=== PATIENT | male | born 1945 | race Caucasian/White ===

== ENCOUNTER 2016-08-29 18:26 | Emergency (ER) | payer OTHER ==
[~2016-08-29] VITALS: Ht 175.3 cm; Wt 62.6 kg
[~2016-08-29 18:26] MED LIST: ASPCH81 PO; BROM0.07 OPR; CALCTAB7 PO; GLUCTAB7 PO; LISI-791 PO; MAGN400T6 PO; MULT-506 PO; PRED1SUS3 OPR; TEMA15CA4 PO
[2016-08-29 18:32] VITALS: TEMP 36.7; Ht 175.3 cm; Wt 62.6 kg
[2016-08-29] MEDS ORDERED: SODIUM CHLORIDE 0.9% 1000ML 1,000 ML IV STA (19:33)
[2016-08-29] MEDS ORDERED: ONDANSETRON INJ 2 MG/ML 2 ML VIAL IV STA (19:33)
[2016-08-29] MEDS ORDERED: DOXY100C2 PO (19:53)
[2016-08-29] MEDS ORDERED: TERI600S SQ (19:53)
[2016-08-29] MEDS ORDERED: ASPI81TA28 PO (19:53)
--- NOTE | 2016-08-29 19:54 | DIAGNOSTIC IMAGING REPORT ---
CHEST ONE VIEW PORTABLE CLINICAL HISTORY: ABDOMINAL PAIN/GI pain COMPARISON STUDY: 12/22/2015 FINDINGS: Mild gastric distention. Chronic elevation left hemidiaphragm. Lungs are considered clear. Stable postoperative changes to the left shoulder. IMPRESSION: Mild gastric distention. Chronic change. No acute process of the chest. Electronically signed by: Judson Almeida M.D. 08/29/2016 7:52 PM Dictated Date/Time: 08/29/2016 7:52 PM
[2016-08-29 19:55] LABS: BASO % 0.2 %; BASO ABS # 0.01 K/uL (0-0.2); COMPLETE YES; EOS % 0.9 %; IG% 0.3 %; LYMPH % 6.5 %; LYMPH ABS # 0.42 K/uL (1.2-3.4); MEAN CELL VOLUME 91.6 fL (80-100); MEAN CORPUSCULAR HEMOGLOBIN 32.1 pg (25-34); MEAN PLATELET VOLUME 9.8 fL (7.4-10.4); MONO % 8.4 %; NEUT % 83.7 %; PLATELET COUNT 226 K/uL (130-400); RED BLOOD COUNT 3.93 M/uL (4.7-6.1); WHITE BLOOD COUNT 6.45 K/uL (4.8-10.8)
[2016-08-29 20:10] LABS: PARTIAL THROMBOPLASTIN RATIO 1.2; PROTHROMBIN TIME (PATIENT) 10.8 SECONDS (9.0-12.0)
[2016-08-29 20:11] LABS: ALT/SGPT 27 U/L (12-78); BLOOD UREA NITROGEN 31 mg/dl (7-18); BUN/CREATININE RATIO 31.9 (10-20); CALCIUM 8.3 mg/dl (8.5-10.1); CARBON DIOXIDE 25 mmol/L (21-32); CHLORIDE 97 mmol/L (98-107); CREATININE 0.96 mg/dl (0.60-1.40); GLUCOSE 133 mg/dl (70-99); POTASSIUM 4.1 mmol/L (3.5-5.1); SODIUM 131 mmol/L (136-145)
[2016-08-29 20:14] LABS: ALKALINE PHOSPHATASE 84 U/L (45-117); AST/SGOT 26 U/L (15-37)
--- NOTE | 2016-08-29 21:23 | EMERGENCY ROOM VISIT NOTE ---
History Report prepared by Rolanda: Dunia Love Under the Supervision of: Dr. Petey Gomez D.O. First contact with patient: 19:25 Chief Complaint: DEHYDRATION Stated Complaint: SYMPTOMS OF DEHYDRATION Nursing Triage Summary: pt reports vomitting multiple times today , with decreased po intake since last night, PCp started on abx to tx sinus inf fri reports head pressure, denies vision changes , reports hx of low sodium History of Present Illness The patient is a 71 year old male who presents to the Emergency Room with complaints of constant dehydration symptoms beginning last night. The patient notes that last night he had one episode of diarrhea. Today the patient had an episode of vomiting. The patient is concerned for low sodium levels as he has a history of this. Symptoms of low sodium for the patient include shaking and pressure to his head, both which he is experiencing at this time. He also notes a decrease in his fluid intake since last night. The patient is currently on Doxycycline to treat a sinus infection since Tuesday. Source of History: patient Onset: yesterday Position: other (global) Quality: other (dehydration) Timing: constant Associated Symptoms: + diarrhea, + vomiting Note: Patient is experiencing head pressure and shakes. Review of Systems See HPI for pertinent positives & negatives. A total of 10 systems reviewed and were otherwise negative. Past Medical & Surgical Medical Problems: (1) Bronchitis (2) History of - pneumonia (3) SYNCOPE AND COLLAPSE Family History FH: gallbladder disease Hypertension Social History Smoking Status: Never Smoker Marital Status: Housing Status: lives with family Occupation Status: retired Current/Historical Medications Scheduled Aspirin (Aspirin Ec), 81 MG PO DAILY Calcium Carbonate-Vitamin D W/ (Caltrate 600 Plus), 1 TAB PO QAM Doxycycline Hyclate (Vibramycin), 1 CAP PO BID Hzdqdkzgnvc-Cachgxuvqug-Bpt C- (Glucosamine Chondroitin), 1 TAB PO QAM Lisinopril (Zestril), 10 MG PO QAM Magnesium Oxide (Mag-Ox), 400 MG PO QAM Multivitamin (Multivitamin), 1 TAB PO QAM Ondasetron Odt (Zofran Odt), 4 MG SL Q6H Temazepam (Restoril), 30 MG PO HS PRN Teriparatide (Recombinant) (Forteo), 20 MCG SQ DAILY Allergies Coded Allergies: Zolpidem (Verified Adverse Reaction, Unknown, DELIRIUM, 08/29/16) Physical Exam Vital Signs Date Time Temp Pulse Resp B/P Pulse Ox O2 Delivery O2 Flow Rate FiO2 08/29/16 20:19 77 18 131/78 93 Room Air 08/29/16 18:32 36.7 108 18 168/86 95 Room Air Physical Exam CONSTITUTIONAL/VITAL SIGNS: Reviewed / noted above. GENERAL: Non-toxic in appearance. INTEGUMENTARY: Warm, dry, and [place]. HEAD: Normocephalic. EYES: without scleral icterus or trauma. ENT/OROPHARYNX: clear and moist. LYMPHADENOPATHY/NECK: Is supple without lymphadenopathy or meningismus. RESPIRATORY: Lungs clear and equal. CARDIOVASCULAR: Regular rate and rhythm. GI/ABDOMEN: Soft and nontender. No organomegaly or pulsatile mass. No rebound or guarding. Normal bowel sounds. EXTREMITIES: Warm and well perfused. BACK: No CVA tenderness. NEUROLOGICAL: Intact without focal deficits. PSYCHIATRIC: normal affect. MUSCULOSKELETAL: Normally developed with good muscle tone. Medical Decision & Procedures ER Provider Diagnostic Interpretation: X ray results and stated below per my interpretation and radiology interpretation. CHEST ONE VIEW PORTABLE CLINICAL HISTORY: ABDOMINAL PAIN/GI pain COMPARISON STUDY: 12/22/2015 FINDINGS: Mild gastric distention. Chronic elevation left hemidiaphragm. Lungs are considered clear. Stable postoperative changes to the left shoulder. IMPRESSION: Mild gastric distention. Chronic change. No acute process of the chest. Electronically signed by: Judson Almeida M.D. 08/29/2016 7:52 PM Dictated Date/Time: 08/29/2016 7:52 PM Laboratory Results 08/29/16 19:47 Red Blood Count 3.93, Mean Corpuscular Volume 91.6, Mean Corpuscular Hemoglobin 32.1, Mean Corpuscular Hemoglobin Concent 35.0, Mean Platelet Volume 9.8, Neutrophils (%) (Auto) 83.7, Lymphocytes (%) (Auto) 6.5, Monocytes (%) (Auto) 8.4, Eosinophils (%) (Auto) 0.9, Basophils (%) (Auto) 0.2, Neutrophils # (Auto) 5.40, Lymphocytes # (Auto) 0.42, Monocytes # (Auto) 0.54, Eosinophils # (Auto) 0.06, Basophils # (Auto) 0.01 08/29/16 19:47 Test 08/29/16 19:47 White Blood Count 6.45 K/uL (4.8-10.8) Red Blood Count 3.93 M/uL (4.7-6.1) Hemoglobin 12.6 g/dL (14.0-18.0) Hematocrit 36.0 % (42-52) Mean Corpuscular Volume 91.6 fL (80-100) Mean Corpuscular Hemoglobin 32.1 pg (25-34) Mean Corpuscular Hemoglobin Concent 35.0 g/dl (32-36) Platelet Count 226 K/uL (130-400) Mean Platelet Volume 9.8 fL (7.4-10.4) Neutrophils (%) (Auto) 83.7 % Lymphocytes (%) (Auto) 6.5 % Monocytes (%) (Auto) 8.4 % Eosinophils (%) (Auto) 0.9 % Basophils (%) (Auto) 0.2 % Neutrophils # (Auto) 5.40 K/uL (1.4-6.5) Lymphocytes # (Auto) 0.42 K/uL (1.2-3.4) Monocytes # (Auto) 0.54 K/uL (0.11-0.59) Eosinophils # (Auto) 0.06 K/uL (0-0.5) Basophils # (Auto) 0.01 K/uL (0-0.2) RDW Standard Deviation 42.3 fL (36.4-46.3) RDW Coefficient of Variation 12.4 % (11.5-14.5) Immature Granulocyte % (Auto) 0.3 % Immature Granulocyte # (Auto) 0.02 K/uL (0.00-0.02) Prothrombin Time 10.8 SECONDS (9.0-12.0) Prothromb Time International Ratio 1.0 (0.9-1.1) Activated Partial Thromboplast Time 30.4 SECONDS (21.0-31.0) Partial Thromboplastin Ratio 1.2 Anion Gap 9.0 mmol/L (3-11) Est Creatinine Clear Calc Drug Dose 61.6 ml/min Estimated GFR () 91.2 Estimated GFR (Non- 78.7 BUN/Creatinine Ratio 31.9 (10-20) Calcium Level 8.3 mg/dl (8.5-10.1) Total Bilirubin 0.4 mg/dl (0.2-1) Direct Bilirubin < 0.1 mg/dl (0-0.2) Aspartate Amino Transf (AST/SGOT) 26 U/L (15-37) Alanine Aminotransferase (ALT/SGPT) 27 U/L (12-78) Alkaline Phosphatase 84 U/L (45-117) Total Protein 7.2 gm/dl (6.4-8.2) Albumin 3.3 gm/dl (3.4-5.0) Lipase 135 U/L (73-393) Laboratory results as stated above per my review. Medications Administered Medications (Trade) Dose Ordered Sig/Juana Route Start Time Stop Time Status Last Admin Dose Admin Sodium Chloride (Nss 1000ml) 1,000 ml @ 999 mls/hr Q1H1M STAT IV 08/29/16 19:33 08/29/16 20:33 DC 08/29/16 19:51 999 MLS/HR Ondansetron HCl (Zofran Inj) 4 mg NOW STAT IV 08/29/16 19:33 08/29/16 19:34 DC 08/29/16 19:51 4 MG ED Course 1931: Previous medical records were reviewed. The patient was evaluated in room C3. A complete history and physical examination was performed. 1932: Zofran Inj 4 mg IV, Sodium Chloride 1,000 ml @ 999 mls/hr IV. 2123: On reevaluation, the patient is hemodynamically stable. I discussed the results and findings with the patient. He verbalized agreement of the treatment plan. He was discharged home. Medical Decision Differential includes acute coronary syndrome, myocardial infarction, CVA, TIA, anemia, infection, pneumonia, UTI, pyelonephritis, poor nutrition, dehydration, electrolyte disturbance,hypoglycemia. This is a 71-year-old male who presents to the ED with a chief complaint of dehydration. The patient is concerned about sodium being low. The patient states he had one episode of diarrhea yesterday and one episode of vomiting today. He has also had some nausea. He states that he started [employer] on Tuesday for sinus infection. The patient's vital signs here are stable. His heart rate was 108. His physical exam was unremarkable. Abdomen is soft and nontender. Lungs are clear. CBC is normal. Chest x-ray did not show acute disease. The patient's chemistry panel was unremarkable. The BUN is 31. Lipase is negative. The patient was told the results of the test. He was treated with a liter of normal saline IV and some IV Zofran. He is felt to be stable for discharge and outpatient follow-up. Impression Primary Impression: Dehydration Additional Impression: Vomiting and diarrhea Scribe Attestation The scribe's documentation has been prepared under my direction and personally reviewed by me in its entirety. I confirm that the note above accurately reflects all work, treatment, procedures, and medical decision making performed by me. Departure Information Dispostion Home / Self-Care Prescriptions Ondasetron Odt (ZOFRAN ODT) 4 Mg Tab 4 MG SL Q6H for Nausea, #15 TAB Prov: Petey Gomez D.O. 08/29/16 Referrals Nadir Murillo D.O.Int.Med. (PCP) Forms HOME CARE DOCUMENTATION FORM, IMPORTANT VISIT INFORMATION, WORK / SCHOOL INSTRUCTIONS Patient Instructions Dehydration, My [facility] Additional Instructions Follow-up with your doctor for further care and evaluation in 1-2 days. Return to the emergency department for worsening or new symptoms or any concerns. You have been examined and treated today on an emergency basis only. This is not a substitute for, or an effort to provide, complete comprehensive medical care. It is impossible to recognize and treat all injuries or illnesses in a single emergency department visit. It is therefore important that you follow up closely with your doctor. Call as soon as possible for an appointment. Drink more fluids. Problem Qualifiers
[2016-08-29] MEDS ORDERED: ONDA4TAB10 SL (21:26)
[2016-08-29 21:33] VITALS: BP 111/71; PULSE 78; O2SAT 92
== END 2016-08-29 21:35 | disposition home or self-care (01) ==
LOC: C.EDB 18:27 → C.EDC 21:35
DX: E86.0 Dehydration (principal); R11.10 Vomiting, unspecified; R19.7 Diarrhea, unspecified; Z87.01 Personal history of pneumonia (recurrent); Z83.79 Family history of other diseases of the digestive system; Z82.49 Family history of ischemic heart disease and other diseases of the circulatory system; Z79.82 Long term (current) use of aspirin; Z79.899 Other long term (current) drug therapy

== ENCOUNTER → 2016-09-07 | Outpatient (CLI) | payer OTHER ==
[~2016-09-07] MED LIST changes: -ASPCH81 PO; +ASPI81TA28 PO; -BROM0.07 OPR; +DOXY100C2 PO; +ONDA4TAB10 SL; -PRED1SUS3 OPR; +TERI600S SQ
[2016-09-07 14:43] LABS: BASO % 0.7 %; BASO ABS # 0.04 K/uL (0-0.2); COMPLETE YES; EOS % 5.7 %; HEMATOCRIT 36.1 % (42-52); IG% 0.3 %; LYMPH % 32.2 %; LYMPH ABS # 1.98 K/uL (1.2-3.4); MEAN CELL VOLUME 91.6 fL (80-100); MEAN CORPUSCULAR HEMOGLOBIN 31.7 pg (25-34); MEAN CORPUSCULAR HGB CONC 34.6 g/dl (32-36); MEAN PLATELET VOLUME 9.9 fL (7.4-10.4); MONO % 14.3 %; NEUT % 46.8 %; PLATELET COUNT 295 K/uL (130-400); RED BLOOD COUNT 3.94 M/uL (4.7-6.1); WHITE BLOOD COUNT 6.15 K/uL (4.8-10.8)
[2016-09-07 14:48] LABS: ALT/SGPT 32 U/L (12-78); BLOOD UREA NITROGEN 41 mg/dl (7-18); BUN/CREATININE RATIO 43.1 (10-20); CALCIUM 9.2 mg/dl (8.5-10.1); CARBON DIOXIDE 29 mmol/L (21-32); CHLORIDE 98 mmol/L (98-107); CREATININE 0.94 mg/dl (0.60-1.40); GLUCOSE 104 mg/dl (70-99); POTASSIUM 4.3 mmol/L (3.5-5.1); SODIUM 135 mmol/L (136-145)
[2016-09-07 14:53] LABS: ALKALINE PHOSPHATASE 82 U/L (45-117); AST/SGOT 30 U/L (15-37); PHOSPHORUS 3.3 mg/dl (2.5-4.9); PROSTATE SPECIFIC ANTIGEN < 0.010 ng/ml (0.000-4.000)
== END | disposition home or self-care (01) ==
LOC: C.LAB1850 13:19
PROVIDERS: ATTEND Internal Medicine Nephrology
DX: Z52.008 Unspecified donor, other blood (principal); E87.1 Hypo-osmolality and hyponatremia; Z79.899 Other long term (current) drug therapy; C61 Malignant neoplasm of prostate

== ENCOUNTER → 2016-11-30 | Outpatient (CLI) | payer OTHER ==
--- NOTE | 2016-11-30 09:03 | DIAGNOSTIC IMAGING REPORT ---
ULTRASOUND ABDOMINAL WALL CLINICAL HISTORY: Abdominal wall nodule/swelling. COMPARISON STUDY: Abdominal CT dated 08/06/2006. FINDINGS: Real-time, grayscale, and color flow sonography of the ventral abdominal wall is performed at the indicated site of interest in the left abdominal wall. There is a 1.5 x 0.8 x 2.0 cm well-circumscribed slightly hyperechoic structure at the indicated site of interest. No internal flow was shown on color imaging. This may present focal fat within the rectus abdominis musculature or less likely a tiny lipoma. IMPRESSION: There is a tiny hyperechoic focus at the site of interest as detailed above, possibly representing focal fat within the rectus abdominis muscle or less likely tiny lipoma. This is of low suspicion and clinical follow-up will be required. Electronically signed by: Joe Quispe M.D. 11/30/2016 9:02 AM Dictated Date/Time: 11/30/2016 8:59 AM
== END | disposition home or self-care (01) ==
LOC: C.ULTR 08:28
PROVIDERS: ATTEND Family Medicine
DX: R19.06 Epigastric swelling, mass or lump (principal)

== ENCOUNTER → 2017-01-13 | Outpatient (CLI) | payer OTHER ==
[2017-01-13 10:15] LABS: BLOOD UREA NITROGEN 30 mg/dl (7-18); BUN/CREATININE RATIO 32.5 (10-20); CALCIUM 9.3 mg/dl (8.5-10.1); CARBON DIOXIDE 29 mmol/L (21-32); CHLORIDE 98 mmol/L (98-107); CREATININE 0.93 mg/dl (0.60-1.40); GLUCOSE 99 mg/dl (70-99); MAGNESIUM 1.9 mg/dl (1.8-2.4); POTASSIUM 4.3 mmol/L (3.5-5.1); SODIUM 133 mmol/L (136-145)
[2017-01-13 10:20] LABS: CHOLESTEROL 159 mg/dl (0-200); CHOLESTEROL/HDL RATIO 2.4; HDL CHOLESTEROL 67 mg/dl; LDL CHOLESTEROL CALCULATED 80 mg/dl; PHOSPHORUS 3.2 mg/dl (2.5-4.9); TRIGLYCERIDES 62 mg/dl (0-150); VERY LOW DENSITY LIPOPROT CALC 12 mg/dl
== END | disposition home or self-care (01) ==
LOC: C.LAB1850 08:50
PROVIDERS: ATTEND Internal Medicine Nephrology
DX: M81.0 Age-related osteoporosis without current pathological fracture (principal); E55.9 Vitamin D deficiency, unspecified; E87.1 Hypo-osmolality and hyponatremia; E78.5 Hyperlipidemia, unspecified

== ENCOUNTER → 2017-05-17 | Outpatient (CLI) | payer OTHER ==
[~2017-05-17] MED LIST changes: -ONDA4TAB10 SL
== END | disposition home or self-care (01) ==
LOC: C.LAB1850 09:08
PROVIDERS: ATTEND Internal Medicine Rheumatology
DX: M81.0 Age-related osteoporosis without current pathological fracture (principal); E55.9 Vitamin D deficiency, unspecified

== ENCOUNTER → 2017-07-13 | Outpatient (CLI) | payer OTHER ==
[2017-07-13 12:41] LABS: ALBUMIN 3.6 gm/dl (3.4-5.0); BLOOD UREA NITROGEN 35 mg/dl (7-18); CARBON DIOXIDE 31 mmol/L (21-32); CREATININE 0.96 mg/dl (0.60-1.40); GLUCOSE 82 mg/dl (70-99); PHOSPHORUS 3.1 mg/dl (2.5-4.9); POTASSIUM 4.2 mmol/L (3.5-5.1); SODIUM 131 mmol/L (136-145)
== END | disposition home or self-care (01) ==
LOC: C.LAB1850 10:45
PROVIDERS: ATTEND Internal Medicine Nephrology
DX: I10 Essential (primary) hypertension (principal)

== ENCOUNTER 2017-08-06 07:51 | Inpatient (IN) | payer OTHER ==
[~2017-08-06] VITALS: Ht 172.7 cm; Wt 64.5 kg
[~2017-08-06 07:51] MED LIST changes: +DOXY100C76 PO
[2017-08-06] MEDS ORDERED: SODIUM CHLORIDE 0.9% 1000ML 1,000 ML IV STA (08:15)
[2017-08-06] MEDS ORDERED: BENZ100C84 PO (08:21)
[2017-08-06] MEDS ORDERED: AMOX875T PO (08:21)
[2017-08-06 08:49] LABS: HEMOGLOBIN 12.7 g/dL (14.0-18.0); MEAN CELL VOLUME 89.3 fL (80-100); MEAN CORPUSCULAR HEMOGLOBIN 32.4 pg (25-34); MEAN CORPUSCULAR HGB CONC 36.3 g/dl (32-36); MEAN PLATELET VOLUME 9.8 fL (7.4-10.4); PLATELET COUNT 166 K/uL (130-400); RED CELL DISTRIBUTION WIDTH SD 39.1 fL (36.4-46.3); WHITE BLOOD COUNT 6.65 K/uL (4.8-10.8)
[2017-08-06 09:05] LABS: CREATININE 0.92 mg/dl (0.60-1.40)
[2017-08-06 09:10] LABS: BASO % 0.2 %; BASO ABS # 0.01 K/uL (0-0.2); IG# 0.03 K/uL (0.00-0.02); LYMPH % 10.2 %; LYMPH ABS # 0.68 K/uL (1.2-3.4); MONO % 9.8 %; MONO ABS # 0.65 K/uL (0.11-0.59); NEUT % 79.3 %; NEUT ABS # 5.28 K/uL (1.4-6.5)
[2017-08-06 09:45] LABS: INFLUENZA B ANTIGEN POS for Influ B (NEG)
--- NOTE | 2017-08-06 10:14 | EMERGENCY ROOM VISIT NOTE ---
History Report prepared by Glynnibantonia: Esther Brady Under the Supervision of: Dr. Petey Gomez D.O. First contact with patient: 08:03 Chief Complaint: DEHYDRATION Stated Complaint: DEHYDRATION Nursing Triage Summary: pt states he has a sinus infection and hasnt been drinking enough, pressure in head with shaking, this has happened before and he has had low sodium. pt states he was seen here yesturday and should have been given fluids denies diarreah or vomiting History of Present Illness The patient is a 72 year old male who presents to the Emergency Room with complaints of a persistent flu like symptoms for the past 4 days. He is accompanied by his . He states "I feel like I'm dehydrated and have low sodium". He complains of "pressure" in his head with "shaking" and reports he has experienced similar symptoms before. The patient was seen here in the ED yesterday for a sinus infection and placed on medications. He complains of a cough but denies any chest pain or difficulty breathing. He states his temperature was 100.2 last night. He had a sore throat a few days ago, but reports it has resolved. His states one of the patients employees is positive for the flu. The patient denies any vomiting or diarrhea. Source of History: patient, spouse/significant other () Onset: 4 days [employer] Position: other (global) Timing: other (persistent) Associated Symptoms: + fevers, + cough, No sorethroat, No chest pain, No SOB , No vomiting, No diarrhea Review of Systems See HPI for pertinent positives & negatives. A total of 10 systems reviewed and were otherwise negative. Past Medical & Surgical Medical Problems: (1) Bronchitis (2) History of - pneumonia (3) SYNCOPE AND COLLAPSE Family History FH: gallbladder disease Hypertension Social History Smoking Status: Never Smoker Alcohol Use: none Drug Use: none Marital Status: Housing Status: lives with family Occupation Status: retired Current/Historical Medications Scheduled Amoxicillin & Pot Clavulanate (Augmentin 875-125 mg), 1 TAB PO BID Aspirin (Aspirin Ec), 81 MG PO DAILY Calcium Carbonate-Vitamin D W/ (Caltrate 600 Plus), 1 TAB PO QAM Doxycycline Monohydrate (Monodox), 100 MG PO BID Cpfkdknjxah-Jxgngmcjnlf-Cug C- (Glucosamine Chondroitin), 1 TAB PO QAM Lisinopril (Zestril), 10 MG PO QAM Magnesium Oxide (Mag-Ox), 400 MG PO QAM Multivitamin (Multivitamin), 1 TAB PO QAM Temazepam (Restoril), 30 MG PO HS PRN Teriparatide (Recombinant) (Forteo), 20 MCG SQ DAILY Scheduled PRN Benzonatate (Tessalon Perles), 1 CAP PO TID PRN for Cough Allergies Coded Allergies: Zolpidem (Verified Adverse Reaction, Unknown, DELIRIUM, 08/06/17) Physical Exam Vital Signs Date Time Temp Pulse Resp B/P (MAP) Pulse Ox O2 Delivery O2 Flow Rate FiO2 08/06/17 09:12 78 20 145/90 96 Room Air 08/06/17 07:58 36.4 68 18 142/80 97 Room Air Physical Exam CONSTITUTIONAL/VITAL SIGNS: Reviewed / noted above. GENERAL: Non-toxic in appearance. INTEGUMENTARY: Warm, dry, and [place]. HEAD: Normocephalic. EYES: without scleral icterus or trauma. ENT/OROPHARYNX: clear and moist. LYMPHADENOPATHY/NECK: Is supple without lymphadenopathy or meningismus. RESPIRATORY: Lungs clear and equal. CARDIOVASCULAR: Regular rate and rhythm. GI/ABDOMEN: Soft and nontender. No organomegaly or pulsatile mass. No rebound or guarding. Normal bowel sounds. EXTREMITIES: Warm and well perfused. BACK: No CVA tenderness. NEUROLOGICAL: Intact without focal deficits. PSYCHIATRIC: normal affect. MUSCULOSKELETAL: Normally developed with good muscle tone. Medical Decision & Procedures Laboratory Results 08/06/17 08:35 Red Blood Count 3.92, Mean Corpuscular Volume 89.3, Mean Corpuscular Hemoglobin 32.4, Mean Corpuscular Hemoglobin Concent 36.3, Mean Platelet Volume 9.8, Neutrophils (%) (Auto) 79.3, Lymphocytes (%) (Auto) 10.2, Monocytes (%) (Auto) 9.8, Eosinophils (%) (Auto) 0.0, Basophils (%) (Auto) 0.2, Neutrophils # (Auto) 5.28, Lymphocytes # (Auto) 0.68, Monocytes # (Auto) 0.65, Eosinophils # (Auto) 0.00, Basophils # (Auto) 0.01 Test 08/06/17 08:35 08/06/17 09:00 08/06/17 10:02 White Blood Count 6.65 K/uL (4.8-10.8) Red Blood Count 3.92 M/uL (4.7-6.1) Hemoglobin 12.7 g/dL (14.0-18.0) Hematocrit 35.0 % (42-52) Mean Corpuscular Volume 89.3 fL (80-100) Mean Corpuscular Hemoglobin 32.4 pg (25-34) Mean Corpuscular Hemoglobin Concent 36.3 g/dl (32-36) Platelet Count 166 K/uL (130-400) Mean Platelet Volume 9.8 fL (7.4-10.4) Neutrophils (%) (Auto) 79.3 % Lymphocytes (%) (Auto) 10.2 % Monocytes (%) (Auto) 9.8 % Eosinophils (%) (Auto) 0.0 % Basophils (%) (Auto) 0.2 % Neutrophils # (Auto) 5.28 K/uL (1.4-6.5) Lymphocytes # (Auto) 0.68 K/uL (1.2-3.4) Monocytes # (Auto) 0.65 K/uL (0.11-0.59) Eosinophils # (Auto) 0.00 K/uL (0-0.5) Basophils # (Auto) 0.01 K/uL (0-0.2) RDW Standard Deviation 39.1 fL (36.4-46.3) RDW Coefficient of Variation 12.0 % (11.5-14.5) Immature Granulocyte % (Auto) 0.5 % Immature Granulocyte # (Auto) 0.03 K/uL (0.00-0.02) Est Creatinine Clear Calc Drug Dose 65.2 ml/min Influenza Type A Antigen Neg for Influ A (NEG) Influenza Type B Antigen POS for Influ B (NEG) Laboratory results as stated above per my review. Medications Administered Medications (Trade) Dose Ordered Sig/Juana Route Start Time Stop Time Status Last Admin Dose Admin Sodium Chloride 1,000 ml @ 500 mls/hr Q2H STAT IV 08/06/17 08:15 08/06/17 10:14 08/06/17 08:45 500 MLS/HR ED Course 0815: NSS 1000 ml @ 500 mls/hr IV. 0853: Previous medical records were reviewed. The patient was evaluated in room A3. A complete history and physical examination was performed. 0945: Nursing informed me the patient is positive for influenza B. 0950: I reevaluated the patient. He is resting comfortably. I discussed his results and my recommendation he remain in the hospital for further evaluation and management and he verbalized complete understanding and agreement. 1001: I discussed the patients case with Dr. Salcido [facility] Hospitalist. The patient will be further evaluated. Medical Decision Differential includes acute coronary syndrome, myocardial infarction, CVA, TIA, anemia, infection, pneumonia, UTI, pyelonephritis, poor nutrition, dehydration, electrolyte disturbance,hypoglycemia. This is a 72-year-old male who presents to the ED with a chief complaint of decreased oral intake, a sensation of dehydration and low sodium. The patient also reported cough, sore throat for a few days this past week. He had a fever of 100.2 yesterday. He was seen in the emergency department yesterday and felt to have a sinus infection. He was started on doxycycline last night. The patient reports feeling shaky. His physical exam reveals some generalized weakness. His vital signs are stable. He does appear somewhat shaky. CBC is unremarkable, sodium is 121, chloride is 87, BUN is 20 and flu swab was positive for influenza B. The patient was hydrated with IV fluids, 1 L normal saline. He states that he has had symptoms for at least 4 days with regards to his flulike symptoms. He was not started on Tamiflu. Because of the patient's hyponatremia, positive influenza B, unsteadiness and weakness and shakiness, he will be seen by the hospitalist for further inpatient evaluation and care. Medication Reconcilliation Current Medication List: was personally reviewed by me Blood Pressure Screening Patient's blood pressure: Elevated blood pressure The patients elevated blood pressure will be further managed by the inpatient hospital medicine team. Consults Time Called: 09 Consulting Physician: Dr. Salcido [facility] Hospitalist Returned Call: 1001 I discussed the patients case with Dr. Salcido [facility] Hospitalist. The patient will be further evaluated. Impression Primary Impression: Hyponatremia Additional Impressions: Influenza B Weakness Unsteadiness Shakiness Scribe Attestation The scribe's documentation has been prepared under my direction and personally reviewed by me in its entirety. I confirm that the note above accurately reflects all work, treatment, procedures, and medical decision making performed by me. Departure Information Dispostion Being Evaluated By Hospitalist Referrals Massimo Caraballo M.D. (PCP) Patient Instructions My [facility] Problem Qualifiers
[2017-08-06 10:17] VITALS: O2SAT 96; Ht 172.7 cm; Wt 64.5 kg
[2017-08-06] MEDS ORDERED: ALUMINUM/MAGNESIUM/SIMETH (MAALOX MAX) 30 ML UDC PO PRN (10:45)
[2017-08-06] MEDS ORDERED: MAGNESIUM HYDROXIDE SUSP 30 ML UDC PO PRN (10:45)
[2017-08-06] MEDS ORDERED: SODIUM CHLORIDE 1 GM TAB PO ONE (10:45)
[2017-08-06] MEDS ORDERED: POLYETHYLENE (MIRALAX) 17 GM PACK PO PRN (10:45)
--- NOTE | 2017-08-06 10:53 | History and Physical ---
History & Physical Date & Time of Service: Aug 06, 2017 at 10:41 Chief Complaint: Dehydration Primary Care Physician: Massimo Caraballo M.D. History of Present Illness Source: patient, family, clinic records, hospital records Patient is a pleasant 72 y/o male, with PMHx of HTN, chronic hyponatremia, osteoporosis, and insomnia, who presented to the ED because of weakness, fatigue , and decreased appetite since 08/02. Patient was seen in the ED last PM, CXR negative for acute findings, no blood work done. He was discharged home with Doxycycline 100 mg BID for sinusitis (did not start yet). Patient notes he has yellow/green sinus drainage and a h/o sinusitis. He returned to the ED today because of continued symptoms and "foggy sensation of head." He states fogginess of head is similar to past hyponatremia episodes. In ED, his sodium was 121. He admits he has eaten/drank very little since Tuesday. He admits to decreased UO. He follows w/ Dr. Enciso for chronic hyponatremia- baseline Na 130- 133, follows a 64 oz daily fluid restriction. Notes a cough, but no sputum production. +chills. Patient denies any fever, sweats, lightheadedness, dizziness, vision changes, CP, palpitations, edema, SOB, wheezing, abdominal pain, nausea, vomiting, diarrhea, melena, numbness/tingling, muscle/joint pain, anxiety/depression, active bleeding, or new skin discoloration/changes. Past Medical/Surgical History HTN osteoporosis Insomnia chronic hyponatremia Family History FH: gallbladder disease Hypertension Social History Smoking Status: Never Smoker Alcohol Use: none Drug Use: none Marital Status: Housing status: lives with significant other Occupational Status: retired Immunizations History of Influenza Vaccine: Unknown History of Tetanus Vaccine?: Unknown History of Pneumococcal: Unknown History of Hepatitis B Vaccine: Unknown Multi-Drug Resistant Organisms History of MDRO: No Allergies Coded Allergies: Zolpidem (Verified Adverse Reaction, Unknown, DELIRIUM, 08/06/17) Home Medications Scheduled Amoxicillin & Pot Clavulanate (Augmentin 875-125 mg), 1 TAB PO BID Aspirin (Aspirin Ec), 81 MG PO DAILY Calcium Carbonate-Vitamin D W/ (Caltrate 600 Plus), 1 TAB PO QAM Doxycycline Monohydrate (Monodox), 100 MG PO BID Dcneukptiwg-Pkgvargsgvr-Xad C- (Glucosamine Chondroitin), 1 TAB PO QAM Lisinopril (Zestril), 10 MG PO QAM Magnesium Oxide (Mag-Ox), 400 MG PO QAM Multivitamin (Multivitamin), 1 TAB PO QAM Temazepam (Restoril), 30 MG PO HS PRN Teriparatide (Recombinant) (Forteo), 20 MCG SQ DAILY Scheduled PRN Benzonatate (Tessalon Perles), 1 CAP PO TID PRN for Cough Physical Exam Vital Signs Date Time Temp Pulse Resp B/P (MAP) Pulse Ox O2 Delivery O2 Flow Rate FiO2 08/06/17 10:17 96 Room Air 08/06/17 09:12 78 20 145/90 96 Room Air 08/06/17 07:58 36.4 68 18 142/80 97 Room Air General Appearance: no apparent distress Head: normocephalic, atraumatic Eyes: PERRL ENT: hearing grossly normal Neck: supple Respiratory/Chest: lungs clear, no respiratory distress, no accessory muscle use Cardiovascular: regular rate, rhythm Abdomen/GI: normal bowel sounds, non tender, soft Back: normal inspection Extremities/Musculoskelatal: no calf tenderness, no pedal edema Neurologic/Psych: alert, normal mood/affect, oriented x 3 Skin: normal color, warm/dry, no rash Diagnostics Laboratory Results Results Past 24 Hours Test 08/06/17 08:35 08/06/17 09:00 08/06/17 10:24 Range/Units White Blood Count 6.65 4.8-10.8 K/uL Red Blood Count 3.92 4.7-6.1 M/uL Hemoglobin 12.7 14.0-18.0 g/dL Hematocrit 35.0 42-52 % Mean Corpuscular Volume 89.3 80-100 fL Mean Corpuscular Hemoglobin 32.4 25-34 pg Mean Corpuscular Hemoglobin Concent 36.3 32-36 g/dl Platelet Count 166 130-400 K/uL Mean Platelet Volume 9.8 7.4-10.4 fL Neutrophils (%) (Auto) 79.3 % Lymphocytes (%) (Auto) 10.2 % Monocytes (%) (Auto) 9.8 % Eosinophils (%) (Auto) 0.0 % Basophils (%) (Auto) 0.2 % Neutrophils # (Auto) 5.28 1.4-6.5 K/uL Lymphocytes # (Auto) 0.68 1.2-3.4 K/uL Monocytes # (Auto) 0.65 0.11-0.59 K/uL Eosinophils # (Auto) 0.00 0-0.5 K/uL Basophils # (Auto) 0.01 0-0.2 K/uL RDW Standard Deviation 39.1 36.4-46.3 fL RDW Coefficient of Variation 12.0 11.5-14.5 % Immature Granulocyte % (Auto) 0.5 % Immature Granulocyte # (Auto) 0.03 0.00-0.02 K/uL Sodium Level 121 136-145 mmol/L Potassium Level 4.0 3.5-5.1 mmol/L Chloride Level 87 98-107 mmol/L Carbon Dioxide Level 26 21-32 mmol/L Anion Gap 8.0 3-11 mmol/L Blood Urea Nitrogen 20 7-18 mg/dl Creatinine 0.92 0.60-1.40 mg/dl Est Creatinine Clear Calc Drug Dose 65.2 ml/min Estimated GFR () 95.3 Estimated GFR (Non- 82.2 BUN/Creatinine Ratio 21.9 10-20 Random Glucose 113 70-99 mg/dl Calcium Level 8.0 8.5-10.1 mg/dl Influenza Type A Antigen Neg for Influ A NEG Influenza Type B Antigen POS for Influ B NEG Microbiology Results 08/06/17 Urine Culture, Received Pending Diagnostic Radiology CHEST 2 VIEWS ROUTINE CLINICAL HISTORY: Left lower lobe rales. Productive cough COMPARISON STUDY: 08/29/2016 FINDINGS: There is persistent elevation left hemidiaphragm. The cardiac and mediastinal contours remain stable. There is aortic tortuosity/ectasia. There is no failure. There is no focal pulmonary consolidation. No pleural effusions are visualized.[ IMPRESSION: Chronic elevation of the left hemidiaphragm. No acute findings. Electronically signed by: Mike Cordova M.D. 08/05/2017 8:22 PM Dictated Date/Time: 08/05/2017 8:22 PM The status of this report is Signed. Draft = Not yet reviewed or approved by Radiologist. Signed = Reviewed and approved by Radiologist. Impression Assessment and Plan Patient is a pleasant 72 y/o male, with PMHx of HTN, chronic hyponatremia, osteoporosis, and insomnia, who presented to the ED because of weakness, fatigue , and decreased appetite since 08/02. +Influenza B; - Admit to med/surg - Symptoms since Tuesday- >48 hours, outside of window to start Tamiflu - DuoNebs PRN for SOB/wheezing - Tessalon Perles PRN for cough - Droplet precautions - CXR on 08/05- no acute processes Acute on chronic hyponatremia, likely secondary to decrease PO intake- follows w / Dr. Enciso: - IV 1L bolus in ED, continue IV NSS @ 75 ml/hr - 0.5 g sodium chloride tablet - Follow PRP HTN: Continue Lisinopril Sinusitis: Continue Doxycycline 100 mg BID- 08/06 first day of treatment Osteoporosis: Continue Recombinant SQ inj daily Insomnia: Continue Restoril HS PRN DVT prophylaxis: Heparin SQ BID Code status: LEVEL I, FULL Dispo: From home, lives w/ - no discharge needs anticipated Level of Care Med/Surg Advanced Directives Existing Living Will: Yes Existing Power of Embedder: No Resuscitation Status FULL RESUSCITATION VTE Prophylaxis VTE Risk Assessment Done? Y/N: Yes Risk Level: Moderate Given or contraindicated: Unfractionated heparin SQ, T.E.D. Stockings, SCD's Reviewed: Pt Seen/Exam by Me History Pt was able to eat a bit of lunch. states it is more than he has eaten in days. 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 No chest pain. He feels very weak. Agree with HPI/ROS as noted by PA. General Appearance: WD/WN, no apparent distress Eye Exam: bilateral eye normal inspection, bilateral eye other (normal sclera) Respiratory: normal breath sounds, no respiratory distress Cardiovascular: normal peripheral pulses, regular rate, rhythm Gastrointestinal: non tender, soft Extremities: non-tender, no pedal edema Neurologic/Psychiatric: alert, normal mood/affect, oriented x 3 Skin Characteristics: normal color, warm/dry Assessment/Plan Agree with plan as outlined above Flu +, outside of window for tamiflu HypoNa, likely from nutritional losses Monitor on IVF and 500mg salt tab x1, repeat later today
[2017-08-06 10:54] LABS: CALCIUM 7.6 mg/dl (8.5-10.1); CREATININE 0.72 mg/dl (0.60-1.40); POTASSIUM 3.7 mmol/L (3.5-5.1)
[2017-08-06] MEDS: ACETAMINOPHEN 325 MG TAB PO PRN ×2 (13:02→17:49)
[2017-08-06] MEDS: SODIUM CHLORIDE 0.9% 1000ML 1,000 ML IV SCH (13:46)
[2017-08-06 15:15] VITALS: BP 125/74; PULSE 59; TEMP 36.8; O2SAT 95
[2017-08-06] MEDS: ONDANSETRON INJ 2 MG/ML 2 ML VIAL IV PRN (17:50)
[2017-08-06] MEDS ORDERED: NURSING VERBAL MED ORDER ONE (18:45)
[2017-08-06 19:20] LABS: CALCIUM 7.6 mg/dl (8.5-10.1); CREATININE 0.78 mg/dl (0.60-1.40); POTASSIUM 3.9 mmol/L (3.5-5.1)
[2017-08-06] MEDS: TERIPARATIDE 600 MCG/2.4 ML SQ SCH (19:33)
[2017-08-06] MEDS: TEMAZEPAM 15 MG CAP PO SCH (20:19)
[2017-08-06] MEDS: HEPARIN SOD 5000 UNIT/0.5 ML CARP SQ SCH (20:20)
[2017-08-06] MEDS: DOXYCYCLINE HYCLATE 100 MG CAP PO SCH (20:24)
[2017-08-06 23:40] VITALS: BP 93/59; PULSE 58; TEMP 36.8; O2SAT 91
[2017-08-07] MEDS: BENZONATATE 100MG CAP PO PRN ×4 (00:15→20:29)
[2017-08-07] MEDS: SODIUM CHLORIDE 0.9% 1000ML 1,000 ML IV SCH ×2 (00:20→13:55)
[2017-08-07] MEDS: ACETAMINOPHEN 325 MG TAB PO PRN ×2 (07:34→23:28)
[2017-08-07 08:19] LABS: HEMATOCRIT 33.9 % (42-52); HEMOGLOBIN 12.1 g/dL (14.0-18.0); MEAN CELL VOLUME 89.9 fL (80-100); MEAN CORPUSCULAR HEMOGLOBIN 32.1 pg (25-34); MEAN CORPUSCULAR HGB CONC 35.7 g/dl (32-36); MEAN PLATELET VOLUME 9.7 fL (7.4-10.4); PLATELET COUNT 161 K/uL (130-400); RED CELL DISTRIBUTION WIDTH CV 12.3 % (11.5-14.5); RED CELL DISTRIBUTION WIDTH SD 39.8 fL (36.4-46.3); WHITE BLOOD COUNT 4.32 K/uL (4.8-10.8)
[2017-08-07 08:22] VITALS: BP 112/56; PULSE 56; TEMP 37; O2SAT 93
[2017-08-07 08:48] LABS: CALCIUM 7.7 mg/dl (8.5-10.1); CREATININE 0.77 mg/dl (0.60-1.40); POTASSIUM 3.9 mmol/L (3.5-5.1)
[2017-08-07] MEDS: DOXYCYCLINE HYCLATE 100 MG CAP PO SCH ×2 (08:58→20:33)
[2017-08-07] MEDS: MAGNESIUM OXIDE 400 MG TAB PO SCH (08:59)
[2017-08-07] MEDS: CALCIUM 600MG + VIT D 400 IU TAB PO SCH (08:59)
[2017-08-07] MEDS: MULTIVITAMIN TAB PO SCH (08:59)
[2017-08-07] MEDS: LISINOPRIL 10 MG TAB PO SCH (08:59)
[2017-08-07] MEDS: ASPIRIN 81 MG ECTAB PO SCH (08:59)
[2017-08-07] MEDS ORDERED: TERIPARATIDE 600 MCG/2.4 ML SQ SCH (09:00)
[2017-08-07] MEDS ORDERED: NON-FORMULARY MEDICATION (Glucosamine-Chondroitin-Vit C- (Glucosamine Chondroitin) 1 TAB) PO SCH (09:00)
[2017-08-07] MEDS: HEPARIN SOD 5000 UNIT/0.5 ML CARP SQ SCH ×2 (09:07→20:32)
--- NOTE | 2017-08-07 09:37 | Hospitalist Progress Note ---
Hospitalist Progress Note Date of Service Aug 07, 2017. (Valerie Fry ., MEGHAN) Subjective Pt evaluation today including: conversation w/ patient, physical exam, lab review, review of inpatient medication list Voiding: no voiding problems Patient resting in bed. Feels significantly improved since admission. Appetite has returned this AM. Tolerated breakfast well. +cough. Continued drainage from sinuses. No more body aches/weakness. Patient denies any fever, chills, sweats, lightheadedness, dizziness, vision changes, CP, palpitations, edema, SOB, wheezing, abdominal pain, nausea, vomiting, diarrhea, urinary symptoms, melena, numbness/tingling, weakness, muscle/joint pain, anxiety/depression, active bleeding, or new skin discoloration/changes. (Valerie Fry ., RODNEYC) Medications Current Inpatient Medications Medications (Trade) Dose Ordered Sig/Juana Route Start Time Stop Time Status Last Admin Dose Admin Acetaminophen (Tylenol Tab) 650 mg Q4H PRN PO 08/06/17 10:45 09/05/17 10:44 08/07/17 07:34 650 MG Al Hydrox/Mg Hydrox/Simethicone (Maalox Max Susp) 15 ml Q4H PRN PO 08/06/17 10:45 09/05/17 10:44 Magnesium Hydroxide (Milk Of Magnesia Susp) 30 ml Q6H PRN PO 08/06/17 10:45 09/05/17 10:44 Polyethylene (Miralax Powder Packet) 17 gm DAILY PRN PO 08/06/17 10:45 09/05/17 10:44 Ondansetron HCl (Zofran Inj) 4 mg Q6H PRN IV 08/06/17 10:45 09/05/17 10:44 08/06/17 17:50 4 MG Heparin Sodium (Porcine) (Heparin Sq 5000 Unit/0.5ml) 5,000 unit Q12H SQ 08/06/17 21:00 09/05/17 20:59 08/07/17 09:07 5,000 UNIT Aspirin (Ecotrin Tab) 81 mg DAILY PO 08/07/17 09:00 09/06/17 08:59 08/07/17 08:59 81 MG Benzonatate (Tessalon Perles Cap) 100 mg TID PRN PO 08/06/17 10:45 09/05/17 10:44 08/07/17 07:25 100 MG Calcium/Vitamin D (Caltrate Plus Tab) 1 tab QAM PO 08/07/17 09:00 09/06/17 08:59 08/07/17 08:59 1 TAB Doxycycline Hyclate (Vibramycin Cap) 100 mg BID PO 08/06/17 21:00 08/16/17 20:59 08/07/17 08:58 100 MG Lisinopril (Zestril Tab) 10 mg QAM PO 08/07/17 09:00 09/06/17 08:59 08/07/17 08:59 10 MG Magnesium Oxide (Mag-Ox Tab) 400 mg QAM PO 08/07/17 09:00 09/06/17 08:59 08/07/17 08:59 400 MG Multivitamins (Multivitamin Tab) 1 tab QAM PO 08/07/17 09:00 09/06/17 08:59 08/07/17 08:59 1 TAB Temazepam (Restoril Cap) 30 mg HS PO 08/06/17 21:00 09/05/17 20:59 08/06/17 20:19 30 MG Sodium Chloride 1,000 ml @ 75 mls/hr [id number] IV 08/06/17 14:00 09/05/17 13:59 08/07/17 00:20 75 MLS/HR Albuterol/ Ipratropium (Duoneb) 3 ml Q4R PRN INH 08/06/17 11:00 09/05/17 10:59 Teriparatide Acetate (Forteo injection) 20 mcg DAILY@2100 SQ 08/06/17 21:00 09/05/17 20:59 08/06/17 19:33 20 MCG (Valerie Fry PA-C) Objective Vital Signs Date Time Temp Pulse Resp B/P (MAP) Pulse Ox O2 Delivery O2 Flow Rate FiO2 08/07/17 08:42 Room Air 08/07/17 08:22 37.0 56 17 112/56 (74) 93 Room Air 08/07/17 00:15 Room Air 08/06/17 23:40 36.8 58 16 93/59 (70) 91 Room Air 08/06/17 16:50 Room Air 08/06/17 15:15 36.8 59 20 125/74 (91) 95 Room Air 08/06/17 12:30 Room Air 08/06/17 11:15 78 20 117/78 94 Room Air 08/06/17 10:17 96 Room Air (Valerie Fry PA-C) Physical Exam General Appearance: WD/WN, no apparent distress Eyes: normal inspection, PERRL ENT: hearing grossly normal Neck: supple Respiratory/Chest: lungs clear, no respiratory distress, no accessory muscle use Cardiovascular: regular rate, rhythm Abdomen: normal bowel sounds, non tender, soft Extremities: no pedal edema, no calf tenderness Neurologic/Psychiatric: alert, normal mood/affect, oriented x 3 Skin: normal color, warm/dry, no rash (Valerie Fry, MEGHAN) Laboratory Results Last 24 Hours Test 08/06/17 10:24 08/06/17 13:13 08/07/17 07:55 Sodium Level 122 mmol/L 122 mmol/L 126 mmol/L Potassium Level 3.7 mmol/L 3.9 mmol/L 3.9 mmol/L Chloride Level 90 mmol/L 90 mmol/L 94 mmol/L Carbon Dioxide Level 23 mmol/L 27 mmol/L 24 mmol/L Anion Gap 9.0 mmol/L 5.0 mmol/L 8.0 mmol/L Blood Urea Nitrogen 18 mg/dl 16 mg/dl 16 mg/dl Creatinine 0.72 mg/dl 0.78 mg/dl 0.77 mg/dl Est Creatinine Clear Calc Drug Dose 83.4 ml/min 76.9 ml/min 77.9 ml/min Estimated GFR () 107.3 103.8 104.3 Estimated GFR (Non- 92.5 89.6 90.0 BUN/Creatinine Ratio 24.4 21.1 21.2 Random Glucose 108 mg/dl 107 mg/dl 82 mg/dl Calcium Level 7.6 mg/dl 7.6 mg/dl 7.7 mg/dl Prothrombin Time 10.8 SECONDS Prothromb Time International Ratio 1.0 White Blood Count 4.32 K/uL Red Blood Count 3.77 M/uL Hemoglobin 12.1 g/dL Hematocrit 33.9 % Mean Corpuscular Volume 89.9 fL Mean Corpuscular Hemoglobin 32.1 pg Mean Corpuscular Hemoglobin Concent 35.7 g/dl RDW Standard Deviation 39.8 fL RDW Coefficient of Variation 12.3 % Platelet Count 161 K/uL Mean Platelet Volume 9.7 fL (Valerie Fry ., PA-C) Assessment and Plan Patient is a pleasant 72 y/o male, with PMHx of HTN, chronic hyponatremia, osteoporosis, and insomnia, who presented to the ED because of weakness, fatigue , and decreased appetite since 08/02. +Influenza B- IMPROVING: - Admit to med/surg - Symptoms since Tuesday- >48 hours, outside of window to start Tamiflu - DuoNebs PRN for SOB/wheezing - Tessalon Perles PRN for cough - Droplet precautions - CXR on 08/05- no acute processes Acute on chronic hyponatremia, likely secondary to decrease PO intake- follows w / Dr. Enciso- IMPROVING: - IV 1L bolus in ED, continue IV NSS @ 75 ml/hr - 0.5 g sodium chloride tablet x1 - Follow PRP- sodium 126 today from 121 yesterday HTN- STABLE: Continue Lisinopril Sinusitis: Doxycycline 100 mg BID- 08/06 first day of treatment Osteoporosis: Continue Recombinant SQ inj daily Insomnia: Continue Restoril HS PRN DVT prophylaxis: Heparin SQ BID Code status: LEVEL I, FULL Dispo: From home, lives w/ - no discharge needs anticipated- likely discharge to home tomorrow (Valerie Fry, PA-C) Attending Note & Attestation - Pt seen/examined, chart reviewed, care plan d/w ROXANN Fry. I agree w/ the marrero components of her documentation except he had mild end-exp wheezing on exam. Pt feels much better. Only complaint is that of sinus drainage and mild cough. Eating well today. Afebrile, VSS gen - nad mouth - MMM neck - no JVD heart - RRR, s1, s2 lungs - end-exp wheezes b/l abd - soft, NT, ND ext - no edema Na 126 this am; repeat Na this afternoon 130 (about baseline for him) A/P: 1. influenza B infection - appears clinically resolved. 2. acute/chronic hyponatremia - acutely the Na is markedly improved. He has had between 3-4 L of fluid since admission. Since Na is now 130 and baseline Na is low 130s will d/c the IVF at this time. Plan for repeat BMP in am. 3. acute sinusitis - doxy BID x 10 days. If Na is stable in AM can d/c home then. Jv Ceballos MD (Jv Ceballos MD)
[2017-08-07 15:10] VITALS: BP 147/80; PULSE 69; TEMP 36.7; O2SAT 94
[2017-08-07] MEDS: GUAIFENESIN 600 MG TABCR PO SCH ×2 (15:22→20:28)
[2017-08-07] MEDS: ONDANSETRON INJ 2 MG/ML 2 ML VIAL IV PRN (17:52)
[2017-08-07] MEDS: TERIPARATIDE 600 MCG/2.4 ML SQ SCH (20:29)
[2017-08-07] MEDS: TEMAZEPAM 15 MG CAP PO SCH (20:35)
[2017-08-07 23:10] VITALS: BP 110/65; PULSE 85; TEMP 38.1; O2SAT 90
[2017-08-08] VITALS (8 sets, daily range): BP systolic 126–151; BP diastolic 67–78; PULSE 58–74; TEMP 36.6–37.6; O2SAT 91–97
[2017-08-08 05:36] LABS: HEMATOCRIT 34.5 % (42-52); HEMOGLOBIN 11.9 g/dL (14.0-18.0); MEAN CORPUSCULAR HEMOGLOBIN 31.7 pg (25-34); MEAN CORPUSCULAR HGB CONC 34.5 g/dl (32-36); MEAN PLATELET VOLUME 9.5 fL (7.4-10.4); PLATELET COUNT 151 K/uL (130-400); RED CELL DISTRIBUTION WIDTH CV 12.4 % (11.5-14.5); RED CELL DISTRIBUTION WIDTH SD 41.9 fL (36.4-46.3); WHITE BLOOD COUNT 5.33 K/uL (4.8-10.8)
[2017-08-08 06:17] LABS: CALCIUM 7.7 mg/dl (8.5-10.1); CREATININE 0.81 mg/dl (0.60-1.40); POTASSIUM 4.2 mmol/L (3.5-5.1)
[2017-08-08] MEDS: CALCIUM 600MG + VIT D 400 IU TAB PO SCH (08:36)
[2017-08-08] MEDS: DOXYCYCLINE HYCLATE 100 MG CAP PO SCH (08:36)
[2017-08-08] MEDS: GUAIFENESIN 600 MG TABCR PO SCH (08:36)
[2017-08-08] MEDS: MULTIVITAMIN TAB PO SCH (08:37)
[2017-08-08] MEDS: MAGNESIUM OXIDE 400 MG TAB PO SCH (08:37)
[2017-08-08] MEDS: BENZONATATE 100MG CAP PO PRN (08:37)
[2017-08-08] MEDS: LISINOPRIL 10 MG TAB PO SCH (08:37)
[2017-08-08] MEDS: ASPIRIN 81 MG ECTAB PO SCH (08:38)
[2017-08-08] MEDS: HEPARIN SOD 5000 UNIT/0.5 ML CARP SQ SCH (08:38)
[2017-08-08] MEDS ORDERED: ALBUT/IPRATROP 3MG/0.5MG NEB 3 ML VIAL INH ONE (12:00)
--- NOTE | 2017-08-08 13:50 | DIAGNOSTIC IMAGING REPORT ---
CHEST 2 VIEWS ROUTINE CLINICAL HISTORY: 72 years-old Male presenting with fever, flu, eval for superimposed pneumonia. TECHNIQUE: PA and lateral views of the chest were obtained. COMPARISON: 08/05/2017. FINDINGS: Cardiomediastinal silhouette normal. Lungs and pleural spaces clear. Elevation of the left hemidiaphragm with left basilar opacity. No other focal infiltrate. No pleural effusion or pneumothorax. Left shoulder arthroplasty. Upper abdomen normal. IMPRESSION: 1. Left basilar atelectasis. No other evidence of acute cardiopulmonary disease. Electronically signed by: Gonsalo Snyder M.D. 08/08/2017 1:48 PM Dictated Date/Time: 08/08/2017 1:45 PM
[2017-08-08 13:51] LABS: OSMOLALITY,URINE 552 mOms/kg (500-800); SODIUM RANDOM URINE 43 mEq/L
[2017-08-08] MEDS: ALBUT/IPRATROP 3MG/0.5MG NEB 3 ML VIAL INH PRN ×2 (14:33→19:27)
[2017-08-08] MEDS ORDERED: DXY100 PO (15:33)
[2017-08-08] MEDS ORDERED: METH4PAK PO (15:42)
--- NOTE | 2017-08-08 15:47 | Discharge Instructions ---
Discharge Instructions Date of Service Aug 08, 2017. Admission Reason for Admission: Hyponatremia, Influenza B Discharge Discharge Diagnosis / Problem: Hyponatremia, influenza B Discharge Goals Goal(s): Decrease discomfort, Improve function, Diagnostic testing, Therapeutic intervention Activity Recommendations Activity Limitations: resume your previous activity . Instructions / Follow-Up Instructions / Follow-Up You were admitted with low sodium (hyponatremia), below your baseline. You were also found to be positive for the flu. To increase your sodium, you were treated with IV fluids and given one salt tab. You are also being treated for acute sinusitis with an antibiotic. Medications: *Please continue doxycycline 100 mg by mouth twice day for 7 more days. This is an antibiotic for your sinusitis that you started a few days ago. *You have been prescribed a Medrol dose pack. Please take as directed. This is a steroid to help with your wheezing. *Stop Augmentin. *Continue your other home medications as prescribed. Follow up: *You will be scheduled to follow up with your primary care provider regarding your hospital stay. Please seek medical attention if you experience fevers, chills, sweats, dizziness/lightheadedness, loss of consciousness, chest pain, shortness of breath, nausea, vomiting, numbness or tingling. Current Hospital Diet Patient's current hospital diet: Regular Diet Discharge Diet Recommended Diet: AHA Diet (Heart Healthy) Fluid Restriction: 2000 ml (8 cups) Pending Studies Studies pending at discharge: no Medical Emergencies . Who to Call and When: Medical Emergencies: If at any time you feel your situation is an emergency, please call 911 immediately. . Non-Emergent Contact Non-Emergency issues call your: Primary Care Provider, Induction Brazer Call Non-Emergent contact if: you have a fever, you have any medication questions . Past History Medical & Surgical History: (1) Hyponatremia (2) Influenza B . "Provider Documentation" section prepared by Brooke Spencer. . VTE Core Measure Inpt VTE Proph given/why not?: Unfractionated heparin SQ, T.E.D. Stockings, SCD 's
--- NOTE | 2017-08-08 15:58 | Discharge Summary ---
Discharge Summary Date of Service Aug 08, 2017. Discharge Summary Admission Date: Aug 06, 2017 at 10:40 Discharge Date: Aug 08, 2017 Discharge Disposition: Home Principal Diagnosis: Hyponatremia, influenza B Problems/Secondary Diagnoses: Sinusitis, HTN, chronic hyponatremia, osteoporosis, insomnia Immunizations: Have You Had Influenza Vaccine: Unknown History of Tetanus Vaccine?: Unknown History of Pneumococcal: Unknown History of Hepatitis B Vaccine: Unknown Procedures: CHEST 2 VIEWS ROUTINE CLINICAL HISTORY: 72 years-old Male presenting with fever, flu, eval for superimposed pneumonia. TECHNIQUE: PA and lateral views of the chest were obtained. COMPARISON: 08/05/2017. FINDINGS: Cardiomediastinal silhouette normal. Lungs and pleural spaces clear. Elevation of the left hemidiaphragm with left basilar opacity. No other focal infiltrate. No pleural effusion or pneumothorax. Left shoulder arthroplasty. Upper abdomen normal. IMPRESSION: 1. Left basilar atelectasis. No other evidence of acute cardiopulmonary disease. Medication Reconciliation New Medications: Methylprednisolone (Medrol Dosepak) 4 Mg Abdifatah 1 PKT PO UD for 6 Days, #1 PKT Doxycycline Hyclate (Doxycycline Hyclate) 100 Mg Cap 100 MG PO BID for 7 Days, #14 CAP Continued Medications: Aspirin (Aspirin Ec) 81 Mg Tab 81 MG PO DAILY Benzonatate (Tessalon Perles) 100 Mg Cap 1 CAP PO TID PRN for Cough for 10 Days, #30 CAP Calcium Carbonate-Vitamin D W/ (Caltrate 600 Plus) 1 Tab Tab 1 TAB PO QAM, TAB Sjrghatmhtu-Vlfilimkxcq-Gaq C- (Glucosamine Chondroitin) 1 Tab Tab 1 TAB PO QAM Lisinopril (Zestril) 10 Mg Tab 10 MG PO QAM, TAB Magnesium Oxide (Mag-Ox) 400 Mg Tab 400 MG PO QAM, 0 Refills Multivitamin (Multivitamin) Tab 1 TAB PO QAM Temazepam (Restoril) 15 Mg Cap 30 MG PO HS PRN Teriparatide (Recombinant) (Forteo) 600 Mcg/2.4 Ml Jocy 20 MCG SQ DAILY Discontinued Medications: Amoxicillin & Pot Clavulanate (Augmentin 875-125 mg) 1 Tab Tab 1 TAB PO BID, #14 TAB Doxycycline Monohydrate (Monodox) 100 Mg Cap 100 MG PO BID for 7 Days, #14 CAP Discharge Exam Patient reports feeling well. He states he was febrile last night but this has resolved. He did report nausea and decreased appetite last night for dinner, but states he ate his breakfast this morning without any issue. He reports a productive cough with yellow sputum. He states his drainage from sinusitis is improving. The patient denies sweats, chest pain, palpitations, claudication, cough, wheezing, shortness of breath, vomiting, abdominal pain, dysuria, hematuria, urinary retention, paralysis, weakness, numbness and tingling. Constitutional: No fever, No chills, No sweats Eyes: No worsening of vision, No eye pain, No diplopia ENT: No hearing loss, No nasal symptoms, No trouble swallowing Respiratory: +Cough. No wheezing, No shortness of breath Cardiovascular: No chest pain, No claudication, No palpitations Abdomen: +Nausea. No pain, No vomiting Musculoskeletal: No joint pain, No muscle pain, No swelling Genitourinary - Male: No dysuria, No urinary retention, No hematuria Neurologic: No paralysis, No weakness, No numbness/tingling Integumentary: No rash, No itch, No color change General appearance: Well-developed, well-nourished, no apparent distress Head: Normocephalic, atraumatic Eyes: Normal inspection, PERRL, EOMI ENT: Normal ENT inspection, hearing grossly normal, pharynx normal Neck: Supple, no JVD, trachea midline Respiratory/Chest: +Wheezing. Normal breath sounds, no respiratory distress Cardiovascular: Regular rate & rhythm, no gallop, no murmur Abdomen/GI: Normal bowel sounds, non-tender, soft Extremities/Musculoskeletal: Normal inspection, no calf tenderness, no pedal edema Neurological/Psych: Alert, normal mood/affect, oriented x 3 Skin: Normal color, warm/dry, no rash Hospital Course 72 y/o male, with PMHx of HTN, chronic hyponatremia, osteoporosis, and insomnia , who presented to the ED because of weakness, fatigue, and decreased appetite since 08/02. +Influenza B--improving - Admit to med/surg - Symptoms since Tuesday- >48 hours, outside of window to start Tamiflu - DuoNebs PRN for SOB/wheezing - Tessalon Perles PRN for cough - Droplet precautions - CXR on 08/05- no acute processes - Repeat CXR 08/08 no acute findings - Fever likely residual from flu Acute on chronic hyponatremia, likely secondary to decrease PO intake- follows w / Dr. Enciso--resolving, at baseline - IV 1L bolus in ED, given NSS at 75 cc/hr - 0.5 g sodium chloride tablet x1 - Sodium 128 on discharge, around baseline of 130-133 - Continue outpatient fluid restriction of 2L - Urine osmolality, urine random sodium WNL HTN--STABLE - Continue Lisinopril 10 mg PO qd Sinusitis--improving - Doxycycline 100 mg BID x 10 days total. First day of therapy 08/06 Osteoporosis - Continue Recombinant SQ inj daily Insomnia - Continue Restoril 30 mg HS PRN DVT prophylaxis - Heparin SQ 5000 units SC q12h Code Status -Level I, FULL RESUSCITATION STATUS Dispo -PT saw, ok to return home Attending Attestation & Discharge Note - Pt seen/examined, chart reviewed, care plan d/w ROXANN Spencer. I agree w/ the marrero components of her discharge summary. 72yo male with history of chronic hyponatremia and HTN who presented with several days of feeling poorly as well as sinusitis symptoms. At presentation was noted to have a serum sodium level of 121. Flu testing was positive for influenza type "B". Unfortunately he was out of the window period for tamiflu usage. CXR failed to show pneumonia. He was given IVF judiciously for his hyponatremia, improving to 128 prior to discharge, suggesting he had an element of dehydration/volume depletion. Urine studies suggested SIADH. Exact cause of such was uncertain. His baseline serum sodium level is usually about 130-132. At discharge he will complete a course of doxycycline for sinusitis and prednisone for bronchitis related to the flu. He was also given combivent for wheezing/bronchitis. Discharge exam - gen - NAD, thin mouth - MMM neck - no JVD heart - RRR, s1, s2 lungs - mild end-exp wheezing, no rales, no increased work of breathing abd - soft, NT ext - no edema Jv Ceballos MD Total Time Spent: Greater than 30 minutes This includes examination of the patient, discharge planning, medication reconciliation, and communication with other providers. Discharge Instructions Please refer to the electronic Patient Visit Report (Discharge Instructions) for additional information. Additional Copies To Massimo Caraballo M.D.
[2017-08-08] MEDS ORDERED: IPRA1AER2 INH (17:42)
[2017-08-08] MEDS ORDERED: IPRATROPIUM BROMIDE/ALBUTEROL respimat INH INH PRN (17:45)
== END 2017-08-08 19:20 | disposition home or self-care (01) | DRG 194 ==
LOC: C.EDB 07:52 → C.MSW 10:40 → ENRESERV 10:55
PROVIDERS: ADMIT Family Medicine; ATTEND Internal Medicine
DX: J10.1 Influenza due to other identified influenza virus with other respiratory manifestations (principal); E87.1 Hypo-osmolality and hyponatremia; I10 Essential (primary) hypertension; M81.0 Age-related osteoporosis without current pathological fracture; G47.00 Insomnia, unspecified; Z79.82 Long term (current) use of aspirin; Z79.899 Other long term (current) drug therapy; Z88.8 Allergy status to other drugs, medicaments and biological substances; J32.9 Chronic sinusitis, unspecified; Z87.01 Personal history of pneumonia (recurrent); Z87.09 Personal history of other diseases of the respiratory system; Z82.49 Family history of ischemic heart disease and other diseases of the circulatory system; Z83.79 Family history of other diseases of the digestive system

== ENCOUNTER → 2017-08-15 | Outpatient (CLI) | payer OTHER ==
[~2017-08-15] MED LIST changes: +BENZ100C84 PO; -DOXY100C2 PO; -DOXY100C76 PO; +DXY100 PO; +IPRA1AER2 INH; +METH4PAK PO
--- NOTE | 2017-08-15 15:49 | DIAGNOSTIC IMAGING REPORT ---
CHEST 2 VIEWS ROUTINE HISTORY: 72 years-old Male DECREASED BREATH SOUNDS AT L LUNG acute coughing COMPARISON: Chest radiograph 08/08/2017, chest CT 09/28/2012 TECHNIQUE: PA and lateral views of the chest FINDINGS: Chronic reticular nodular opacities of the right upper lobe. Lungs appear hyperinflated without pneumothorax or pleural effusion. No overt pulmonary edema. Cardiac silhouette is within normal limits. Atherosclerosis of the aorta. Marked left hemidiaphragmatic elevation redemonstrated. Bones of the chest appear grossly intact. Left shoulder arthroplasty. IMPRESSION: 1. No acute process. 2. Left hemidiaphragmatic elevation appears unchanged. 3. Chronic reticular nodular opacities of the right upper lobe. The above report was generated using voice recognition software. It may contain grammatical, syntax or spelling errors. Electronically signed by: Isiah Mobley M.D. 08/15/2017 3:48 PM Dictated Date/Time: 08/15/2017 3:45 PM
== END | disposition home or self-care (01) ==
LOC: C.RAD1850 15:28
PROVIDERS: ATTEND Internal Medicine
DX: R09.89 Other specified symptoms and signs involving the circulatory and respiratory systems (principal)

== ENCOUNTER → 2017-09-22 | Outpatient (CLI) | payer OTHER ==
[~2017-09-22] MED LIST changes: -METH4PAK PO
[2017-09-22 09:43] LABS: HEMATOCRIT 38.6 % (42-52); HEMOGLOBIN 13.1 g/dL (14.0-18.0); MEAN CELL VOLUME 93.5 fL (80-100); MEAN CORPUSCULAR HEMOGLOBIN 31.7 pg (25-34); MEAN CORPUSCULAR HGB CONC 33.9 g/dl (32-36); MEAN PLATELET VOLUME 10.6 fL (7.4-10.4); PLATELET COUNT 254 K/uL (130-400); RED CELL DISTRIBUTION WIDTH CV 12.7 % (11.5-14.5); RED CELL DISTRIBUTION WIDTH SD 42.9 fL (36.4-46.3); WHITE BLOOD COUNT 5.32 K/uL (4.8-10.8)
[2017-09-22 10:02] LABS: POTASSIUM RANDOM URINE 37.6 mEq/L
[2017-09-22 10:17] LABS: ALBUMIN 3.5 gm/dl (3.4-5.0); ALT/SGPT 25 U/L (12-78); AST/SGOT 27 U/L (15-37); BLOOD UREA NITROGEN 32 mg/dl (7-18); CALCIUM 9.9 mg/dl (8.5-10.1); CARBON DIOXIDE 28 mmol/L (21-32); CHOLESTEROL 154 mg/dl (0-200); CREATININE 1.03 mg/dl (0.60-1.40); GLUCOSE 83 mg/dl (70-99); POTASSIUM 4.2 mmol/L (3.5-5.1); SODIUM 130 mmol/L (136-145)
[2017-09-22 10:25] LABS: ALKALINE PHOSPHATASE 83 U/L (45-117); LDL CHOLESTEROL CALCULATED 76 mg/dl; PHOSPHORUS 2.7 mg/dl (2.5-4.9); TOTAL PROTEIN 7.4 gm/dl (6.4-8.2)
== END | disposition home or self-care (01) ==
LOC: C.LAB1850 06:55
PROVIDERS: ATTEND Internal Medicine Nephrology
DX: E87.1 Hypo-osmolality and hyponatremia (principal); C61 Malignant neoplasm of prostate; E78.5 Hyperlipidemia, unspecified

== ENCOUNTER → 2018-01-20 | Outpatient (CLI) | payer OTHER ==
[2018-01-20 13:15] LABS: HEMATOCRIT 39.1 % (42-52); HEMOGLOBIN 13.4 g/dL (14.0-18.0); MEAN CORPUSCULAR HEMOGLOBIN 31.5 pg (25-34); MEAN CORPUSCULAR HGB CONC 34.3 g/dl (32-36); MEAN PLATELET VOLUME 10.2 fL (7.4-10.4); PLATELET COUNT 223 K/uL (130-400); RED CELL DISTRIBUTION WIDTH CV 12.3 % (11.5-14.5); RED CELL DISTRIBUTION WIDTH SD 41.6 fL (36.4-46.3); WHITE BLOOD COUNT 5.43 K/uL (4.8-10.8)
[2018-01-20 13:36] LABS: ALBUMIN 3.9 gm/dl (3.4-5.0); ALKALINE PHOSPHATASE 76 U/L (45-117); ALT/SGPT 30 U/L (12-78); AST/SGOT 38 U/L (15-37); BLOOD UREA NITROGEN 29 mg/dl (7-18); CALCIUM 9.1 mg/dl (8.5-10.1); CARBON DIOXIDE 28 mmol/L (21-32); CREATININE 0.99 mg/dl (0.60-1.40); GLUCOSE 96 mg/dl (70-99); PHOSPHORUS 3.7 mg/dl (2.5-4.9); POTASSIUM 4.5 mmol/L (3.5-5.1); SODIUM 129 mmol/L (136-145); TOTAL PROTEIN 7.7 gm/dl (6.4-8.2)
[2018-01-20 13:47] LABS: POTASSIUM RANDOM URINE 57.5 mEq/L
== END | disposition home or self-care (01) ==
LOC: C.LAB1850 11:44
PROVIDERS: ATTEND Internal Medicine
DX: Z00.00 Encounter for general adult medical examination without abnormal findings (principal); I10 Essential (primary) hypertension; D64.9 Anemia, unspecified; E87.1 Hypo-osmolality and hyponatremia

== ENCOUNTER 2023-05-18 13:08 | Observation (INO) ==
--- NOTE | 2023-05-18 13:14 | ED Triage Note ---
Date of Service May 18, 2023 Provider in Triage Author: Danuta Sher History of Present Illness This patient was briefly evaluated while in triage. An abbreviated physical exam was performed. This patient is a 78-year-old Male who presents to the ED for evaluation of stroke like symptoms. He's complaining of a bad headache pressure and nausea in his head since 9 am this morning. No vomiting, just nausea. His son states that his speech seems different to him. Seems like he is having trouble finding his words at times. Having a left sided facial droop as well. History of stroke 2 years ago and the patient is concerned that he might be having a stroke again. Also has problems with low sodium and sinus problems. He is not on blood thinners other than aspirin. Physical Exam GENERAL: Non-toxic and in no acute distress. HEENT: Pupils equal. No obvious scleral icterus. HEART: Regular rate and rhythm. LUNGS: Clear to auscultation. No accessory muscle use. ABDOMEN: Soft, nontender to palpation. NEURO: Alert and oriented. The patient does have a mild facial droop on the left side. MUSCULOSKELETAL: Full range of motion of the bilateral upper and lower extremities. Strength equal in the bilateral upper and lower extremities. Initial orders for labs and / or imaging were placed and patient was placed in the waiting area until a bed is available. Please see further documentation for the full ED course. MDM / Impression Impression Impression: Stroke-like symptoms, Acute hyponatremia
--- NOTE | 2023-05-18 13:26 | Emergency Department Note ---
Impression & Plan Stroke-like symptoms, Acute hyponatremia ED Provider Note NAME: ANGEL LUIS HERNANDEZ AGE: 78 SEX: M : 1945 ARRIVES VIA: Walk-In INFORMANT: Patient, the patient's son ED PROVIDER(S): Murray Jaquez DO CHIEF COMPLAINT: Strokelike symptoms HPI: The patient is a 78-year-old male who presented to the emergency department through triage for an evaluation of strokelike symptoms. The patient was in his normal state of health when he awoke this morning. He states that around 9 AM he started having symptoms that he was having difficulty speaking. He called his son who brought him to the emergency department now. The patient does have a history of stroke in the past. He is having trouble speaking but also has a facial droop. The patient does have no blood thinners that he takes. Has been compliant his outpatient medications otherwise. There is no reported trauma. ROS: See above HPI for pertinent positives & negatives. A total of 10 systems reviewed and were otherwise negative. PAST MEDICAL HISTORY: See Below PAST SURGICAL HISTORY: See Below FAMILY HISTORY: See Below SOCIAL HISTORY: See Below HOME MEDICATIONS: See Below ALLERGIES: See Below VITALS: See Below PHYSICAL EXAMINATION: GENERAL: Patient is awake alert in no acute distress patient is resting comfortably and showing no signs of anxiety EYES: The conjunctivae are clear. The pupils are round and reactive. EARS, NOSE, MOUTH AND THROAT: The nose is without any evidence of any deformity. NECK: The neck is nontender and supple. RESPIRATORY: Normal respiratory effort is noted there is no evidence of wheezing rhonchi or rales CARDIOVASCULAR: Regular rate and rhythm noted there no murmurs rubs or gallops normal S1 normal S2. GASTROINTESTINAL: The abdomen is soft. Abdomen is nontender. MUSCULOSKELETAL/EXTREMITIES: There is no evidence of gross deformity full range of motion is noted in the hips and shoulders. SKIN: There is no obvious evidence of any rash. There are no petechiae, pallor or cyanosis noted. NEUROLOGIC: Patient is awake alert and oriented x3. Speech was pressured. Strength was symmetric but diminished bilaterally. There is a left-sided facial droop appreciated. MEDICAL DECISION MAKING: The patient is a 78-year-old male who presented to the emergency department for an evaluation of strokelike symptoms. The patient had a new onset of dysarthria. Initially it was felt the patient might be in the window for thrombolytics but after further history was obtained from the patient's son it does appear he may have been having the symptoms since 9:00 in the morning. I discussed the patient's laboratory and radiographic studies with him and his family members. I discussed his condition with the stroke neurologist from [facility]. The patient does not appear to have a large vessel occlusion. The patient does not appear to have any intracranial hemorrhage. At this time I do feel the patient will require further workup for strokelike symptoms. I discussed his condition with the on-call [facility] Hospitalist. They have evaluated the patient in the emergency department for further management and disposition. Triage Nursing notes reviewed. Prior medical records reviewed Vital Signs: reviewed and remarkable for elevated blood pressure. Differential diagnosis: Infection, dehydration, metabolic abnormality, hypo/hyperglycemia, electrolyte disturbance, anemia, hypoxia, cardiac sources, intracerebral event, toxicologic, neurologic, as well as other pathologies. ER treatment provided: See below Diagnostics interpreted by me: ECG: EKG was obtained in the emergency department. My interpretation is sinus rhythm with 77 bpm. There is no ectopy. There is no acute ST segment abnormalities noted. This was compared to a tracing from November 17, 2021. No changes were noted. Cardiac Monitoring: An order was placed for continuous cardiac monitoring. The monitor shows a rate of 69 bpm with sinus rhythm. Laboratory studies: As stated above and show below. Imaging studies: See below. Radiographic imaging was reviewed by myself Consultation(s): I discussed this case with Dr. Melvin who is on-call for stroke neurology with [facility]. I discussed this case with Dr. Miller who is on-call for the [facility]ist group ED COURSE: Procedures: none Critical Care: I have personally spent greater than 45 minutes of critical care time in the direct management of this patient. This includes bedside care, interpretation of diagnostic studies, and testing, discussion with consultants, patient, and family members, and other required patient management activities. This 45 minutes is in excess of all separately billable procedures. Past Med/Surg History Medical History Dental infection Sinus infection Sinus infection Acute medical illness Sinus congestion Right-sided lacunar infarction CVA (cerebral vascular accident) Lab test negative for COVID-19 virus Pneumonitis Sinus pressure Right shoulder pain Left femoral hernia without obstruction or gangrene Scoliosis Osteopenia Osteoarthritis of first carpometacarpal joint, unspecified Multiple pulmonary nodules Knee pain, bilateral Insomnia Inguinal hernia Hypertension Disc degeneration, lumbar Anemia, mild Surgical History S/P genital surgery (~2003) Penile prosthetic device S/P shoulder surgery S/P hernia repair H/O radical retropubic prostatectomy History of herniorrhaphy Family History Father , age 89 Alzheimer disease Coronary heart disease [place] lung Paget's disease Patient Mother , age 85 Coronary heart disease Stroke multiple first on at age 78 Hypertension Denies family history of Prostate cancer Social History Smoking Status: Never smoker Second Hand Exposure: No; Do You Dip or Chew Tobacco: No; Hx Alcohol Use: Yes (social) Hx Substance Use: No Preferred Language: Kazakh Communication Ability: Effective Visual Impairment: No Limitations Hearing Ability: Normal marital status: Current Living Situation: Spouse current occupational status: retired current occupation: [employer] Feels Safe at Home: Yes Physical Activity Frequency: Daily Physical Activity Frequency Comment: hike [place] 5-6 times a week Seatbelt Use: always Allergies Allergies Allergy/AdvReac Type Severity Reaction Status Date / Time zolpidem AdvReac Intermediate DELIRIUM Verified 05/18/23 14:24 Home Meds Home Medications Medication Instructions Recorded Confirmed calcium carb 300 mg-D3 20 mcg-mag 1 tab PO QAM 08/04/18 05/18/23 ox 25 mg-endoscopy support specialist 0.5 [id number] tablet (Caltrate-D3 Plus Minerals) magnesium oxide 400 mg PO QAM 08/04/18 05/18/23 multivitamin 1 tab PO QAM 08/04/18 05/18/23 cyanocobalamin (vitamin B-12) 1,000 mcg PO Q2D 07/30/19 05/18/23 1,000 mcg tablet cetirizine 10 mg tablet (Allergy 10 mg PO DAILY PRN Allergy Symptoms 05/22/21 05/18/23 Relief (cetirizine)) amoxicillin 500 mg tablet 2,000 mg PO DIRECTED PRN PRIOR 05/18/23 05/18/23 TO DENTAL PROCEDURES Previous Rx's Medication Instructions Recorded aspirin 81 mg tablet,delayed 81 mg PO DAILY #30 tabs 06/15/21 release (Adult Aspirin Regimen) atorvastatin 20 mg tablet 20 mg PO DAILY #90 tabs 05/31/22 nut.therapy,urea cycle disordr 15 1 ea PO DAILY #400 grams 06/17/22 gram-440 kcal/100 gram oral powder fluticasone propionate 50 1 spray intranasal BID #16 grams 07/09/22 mcg/actuation nasal spray,suspension (Flonase Allergy Relief) sodium chloride 1,000 mg soluble 1,000 mg PO BID #180 tabs 08/19/22 tablet lisinopril 20 mg tablet 20 mg PO QAM #90 tabs 09/30/22 acetaminophen 500 mg tablet 1,000 mg (2 x 500 mg) PO BIDWMEAL 04/05/23 (Tylenol Extra Strength) PRN fever #20 tabs temazepam 30 mg capsule 30 mg PO HS PRN Sleep #30 caps 04/28/23 Results & Data (ED) Vital Signs Vital Signs - 24 hr 05/18/23 13:11 05/18/23 13:31 05/18/23 13:33 Temperature 36.5 C Temperature Source Temporal Artery Scan Pulse Rate 70 81 79 Respiratory Rate 16 19 21 Respiratory Effort / Characteristics Non-Labored Spontaneous Respiratory Depth Normal Blood Pressure 214/117 H 214/116 H 192/127 H Blood Pressure Mean 149 148 148 Pulse Oximetry 99 95 96 Oxygen Delivery Method Room Air Room Air Room Air Sepsis Recent Fever Within 48 Hours No Sepsis New/Unexplained Change in Mental Status No Sepsis Action Taken by Nursing No Action Required 05/18/23 13:36 05/18/23 13:42 05/18/23 13:45 Temperature Temperature Source Pulse Rate 73 61 60 Respiratory Rate 17 20 Respiratory Effort / Characteristics Respiratory Depth Blood Pressure 155/96 H 166/117 H Blood Pressure Mean 115 133 Pulse Oximetry 100 100 Oxygen Delivery Method Room Air Room Air Sepsis Recent Fever Within 48 Hours Sepsis New/Unexplained Change in Mental Status Sepsis Action Taken by Nursing 05/18/23 13:51 05/18/23 14:00 05/18/23 14:30 Temperature Temperature Source Pulse Rate 59 L 60 62 Respiratory Rate 22 19 Respiratory Effort / Characteristics Respiratory Depth Blood Pressure 167/96 H 167/96 H 153/97 H Blood Pressure Mean 119 115 Pulse Oximetry 99 97 Oxygen Delivery Method Room Air Room Air Sepsis Recent Fever Within 48 Hours Sepsis New/Unexplained Change in Mental Status Sepsis Action Taken by Detention Medications Current Medication List: was personally reviewed by me Laboratory Data Attestation: I reviewed the patient's lab results. 05/18/23 13:34 05/18/23 13:34 Lab Results 05/18/23 05/18/23 Range/Units 13:33 13:34 WBC 5.46 (4.8-10.8) K/ul RBC 4.00 L (4.70-6.10) M/uL Hgb 12.9 L (14.0-18.0) g/dl Hct 38.0 L (42.0-52.0) % MCV 95.0 (80.0-100.0) fL MCH 32.3 (25.0-34.0) pg MCHC 33.9 (32.0-36.0) g/dL RDW Std Deviation 41.1 (36.4-46.3) fL RDW Coeff of [place] 11.9 (11.5-14.5) % Plt Count 216 (130-400) K/uL MPV 9.9 (9.4-12.4) fL Immature Gran % (Auto) 0.4 % Neut % (Auto) 62.0 % Lymph % (Auto) 18.3 % [place] % (Auto) 13.7 % Eos % (Auto) 4.9 % Baso % (Auto) 0.7 % Neut # (Auto) 3.38 (1.40-6.50) K/uL Lymph # (Auto) 1.00 L (1.20-3.40) K/uL [place] # (Auto) 0.75 H (0.11-0.59) K/uL Eos # (Auto) 0.27 (0.00-0.50) K/uL Baso # (Auto) 0.04 (0.00-0.20) K/uL Immature Gran # (Auto) 0.02 (0.01-0.20) K/uL PT 11.2 (9.0-12.0) Seconds INR 1.0 (0.9-1.1) APTT 29 (21-31) Seconds PTT Ratio 1.0 Sodium 127 L (136-145) mmol/L Potassium 4.5 (3.5-5.1) mmol/L Chloride 94 L (98-107) mmol/L Carbon Dioxide 27 (21-32) mmol/L Anion Gap 6 (3-11) BUN 23 (6-23) mg/dl Creatinine 0.71 (0.6-1.4) mg/dl Est Cr Clr Drug Dosing 72.1 ml/min Est GFR ( Amer) 103.4 ml/min Est GFR (Non-Af Amer) 89.2 ml/min BUN/Creatinine Ratio 32.4 H (10-20) Glucose 94 (70-99(Fasting)) mg/dl POC Glucose 85 (70-99) mg/dl Calcium 8.8 (8.6-10.3) mg/dl Magnesium 1.8 (1.7-2.4) mg/dl Total Bilirubin 0.5 (0.2-1.0) mg/dl AST 25 (13-39) U/L ALT 22 (7-52) U/L Alkaline Phosphatase 68 (34-104) U/L Troponin I High Sens 5.7 (0-20) pg/ml Total Protein 6.7 (6.0-8.3) gm/dl Albumin 3.9 (3.4-5.0) gm/dl Globulin 2.8 (2.5-4.0) gm/dl Albumin/Globulin Ratio 1.4 (0.9-2) Administered Medications Discontinued Medications Ioversol (Optiray 320 125ml) 115 ml IV ONCE ONE Stop: 05/18/23 13:31 Last Admin: 05/18/23 13:31 Dose: 115 ml Documented By: RACHAEL Labetalol HCl (Labetalol Hcl Iv 5 Mg/Ml 20ml) 10 mg IV NOW STA Stop: 05/18/23 13:33 Last Admin: 05/18/23 13:36 Dose: 10 mg Documented By: SURI Co-signed By: PREET Imaging Data Attestation: I personally reviewed and interpreted this imaging study as follows: My Impression: 1 view chest x-ray was obtained in the emergency department. My interpretation is no free air or definite infiltrate, final report below. CT of the brain was obtained in the emergency department. My interpretation is no intracranial hemorrhage or mass effect, final report below. Radiologist's Impression: Chest X-Ray 05/18/23 13:14 XR chest 1V portable CLINICAL HISTORY: neuro deficit, acute stroke suspected TECHNIQUE: Single frontal radiograph of the chest was obtained. Comparison: Comparison is made to chest radiograph 04/29/2020 FINDINGS: No lines and tubes are seen. Cardiomegaly is noted. Elevated left hemidiaphragm is again seen with interstitial thickening. No airspace disease. No evidence of pleural effusion or pneumothorax. IMPRESSION: No acute chest disease. ACT 112: Negative or not required by law. Electronically signed by: Marcial Hernandez M.D. 05/18/2023 2:[address] 05/18/23 13:14 CT SCAN OF THE BRAIN WITHOUT IV CONTRAST CLINICAL HISTORY: Neurological deficit. Stroke like symptoms. Left facial droop. COMPARISON STUDY: CT of the brain dated 11/17/2021. TECHNIQUE: Unenhanced axial CT scan of the brain is performed from the vertex to the skull base. A dose lowering technique was utilized adhering to the principles of ALARA. FINDINGS: Brain parenchyma: There is age-related involutional change noting moderate subcortical and periventricular microangiopathic disease. There is no hemorrhage, mass effect, or evidence of acute territorial ischemia by CT criteria. Anthony-white matter differentiation is preserved. No extra-axial fluid collection is seen. Ventricles, sulci, cisterns: Prominent secondary to involutional change. Intracranial vasculature: There is atherosclerotic calcification of the cavernous carotid arteries. Calvarium: Unremarkable. Sinuses and mastoids: The visualized paranasal sinuses are clear. The mastoid air cells are well pneumatized. Orbits: The bony orbits are grossly intact. There are bilateral ocular lens implants. IMPRESSION: There is no hemorrhage, mass effect, or evidence of acute territorial ischemia by CT criteria. ACT 112: Negative or not required by law. Electronically signed by: Joe Quispe M.D. 05/18/2023 1:27 PM Head CTA 05/18/23 13:14 CT angio head w con CLINICAL HISTORY: neuro deficit, acute stroke suspected TECHNIQUE: CT angiography of the head was performed following intravenous administration of iodinated contrast. Coronal and sagittal MIPS were obtained from the axial data set and were submitted for review. Automated dose lowering techniques and/or adjustment according to patient size were utilized for this examination. All measurements were calculated based on NASCET criteria. Comparison: None available at the time of this dictation. FINDINGS: CTA Head: The anterior and posterior cerebral circulations are patent. origin of the bilateral posterior cerebral arteries noted. The right vertebral artery terminates as PICA. IMPRESSION: No occlusion, hemodynamically significant stenosis, aneurysm, dissection, or arteriovenous malformation in the major intracranial arteries. Assessment of stenosis of the internal carotid arteries is based on NASCET criteria. ACT 112: Negative or not required by law. Electronically signed by: Marcial Hernandez M.D. 05/18/2023 1:37 PM Neck CTA 05/18/23 13:14 CT ANGIOGRAM OF THE NECK CLINICAL HISTORY: Strokelike symptoms. COMPARISON STUDY: No priors. TECHNIQUE: Following the IV administration of 115 of Optiray 320, CT angiogram of the neck was performed from the aortic arch to the skull base. Images are reviewed in the axial, sagittal, and coronal planes. 3-D MIPS images are created and assessed. IV contrast was administered without complication. All measurements were calculated based on NASCET criteria. A dose lowering technique was utilized adhering to the principles of ALARA. FINDINGS: Thoracic aorta: Visualized portions of the thoracic aorta are normal in caliber. The aortic arch demonstrates standard 3-vessel anatomy. Right carotid arterial system: The right common carotid artery is widely patent, as are the right internal and external carotid arteries. Calcified plaque is noted in the carotid bulb. Left carotid arterial system: The left common carotid artery is widely patent, as are the left internal and external carotid arteries. Calcified plaque is noted in the carotid bulb. Vertebral arteries: The vertebral arteries are widely patent bilaterally noting left-sided dominance. Subclavian arteries: Widely patent bilaterally. Intracranial vasculature: The visualized intracranial vessels at the skull base are patent. The right vertebral artery terminates as the PICA. Jugular veins: Widely patent bilaterally. Brain parenchyma: The visualized brain parenchyma the skull base is within normal limits. Lung apices: Fibrotic changes noted at the apices. There are calcified granulomas. Upper lobe lung parenchyma is otherwise clear as imaged. Soft tissues: The visualized pharyngeal soft tissues are normal in appearance noting angiographic phase technique. The oropharyngeal airway appears widely patent. The salivary and thyroid glands are normal in appearance. No cervical lymphadenopathy is seen. Skeletal structures: The skeletal structures are osteopenic. The visualized calvarium at the skull base appears intact. The imaged cervical spine appears maintained noting advanced multilevel spondylosis. No lytic or blastic lesion is seen. Sinuses and mastoids: The visualized paranasal sinuses are clear. There is trace left mastoid effusion. The right mastoid air cells are well pneumatized. Cerumen is noted in the right external auditory canal. IMPRESSION: Unremarkable CT angiogram of the neck. ACT 112: Negative or not required by law. Electronically signed by: Joe Quispe M.D. 05/18/2023 1:39 PM Discharge Plan Visit Data Chief Complaint: Stroke/CVA Symptoms Stated Complaint: HEAD FEELS WEIRD, NAUSEA, TROUBLE SPEAKING ED Provider: Murray Jaquez Discharge Problem: Stroke-like symptoms, Acute hyponatremia Patient Disposition: Admitted As Inpatient Discharge Instructions Interventions: ED Discharge Assessment Last Done: 05/18/23 16:57
[2023-05-18] MEDS ORDERED: OPTIRAY 320 125ml IV ONE (13:30)
--- NOTE | 2023-05-18 13:30 | CT Scan Report ---
CT SCAN OF THE BRAIN WITHOUT IV CONTRAST CLINICAL HISTORY: Neurological deficit. Stroke like symptoms. Left facial droop. COMPARISON STUDY: CT of the brain dated 11/17/2021. TECHNIQUE: Unenhanced axial CT scan of the brain is performed from the vertex to the skull base. A do se lowering technique was utilized adhering to the principles of ALARA. FINDINGS: Brain parenchyma: There is age-related involutional change noting moderate subcortical and periventri cular microangiopathic disease. There is no hemorrhage, mass effect, or evidence of acute territorial ischemia by CT criteria. Anthony-white matter differentiation is preserved. No extra-axial fluid collec tion is seen. Ventricles, sulci, cisterns: Prominent secondary to involutional change. Intracranial vasculature: There is atherosclerotic calcification of the cavernous carotid arteries. Calvarium: Unremarkable. Sinuses and mastoids: The visualized paranasal sinuses are clear. The mastoid air cells are well pneu matized. Orbits: The bony orbits are grossly intact. There are bilateral ocular lens implants. IMPRESSION: There is no hemorrhage, mass effect, or evidence of acute territorial ischemia by CT susan masters. ACT 112: Negative or not required by law. Electronically signed by: Joe Quispe M.D. 05/18/2023 1:27 PM
[2023-05-18] MEDS ORDERED: LABETALOL HCL IV 5 MG/ML 20ML IV STA (13:32)
--- NOTE | 2023-05-18 13:39 | CT Scan Report ---
CT angio head w con CLINICAL HISTORY: neuro deficit, acute stroke suspected TECHNIQUE: CT angiography of the head was performed following intravenous administration of iodinated contrast. Coronal and sagittal MIPS were obtained from the axial data set and were submitted for rev iew. Automated dose lowering techniques and/or adjustment according to patient size were utilized fo r this examination. All measurements were calculated based on NASCET criteria. Comparison: None available at the time of this dictation. FINDINGS: CTA Head: The anterior and posterior cerebral circulations are patent. origin of the bilateral posterior cerebral arteries noted. The right vertebral artery terminates as PICA. IMPRESSION: No occlusion, hemodynamically significant stenosis, aneurysm, dissection, or arteriovenous malformati on in the major intracranial arteries. Assessment of stenosis of the internal carotid arteries is based on NASCET criteria. ACT 112: Negative or not required by law. Electronically signed by: Marcial Hernandez M.D. 05/18/2023 1:37 PM
--- NOTE | 2023-05-18 13:40 | CT Scan Report ---
CT ANGIOGRAM OF THE NECK CLINICAL HISTORY: Strokelike symptoms. COMPARISON STUDY: No priors. TECHNIQUE: Following the IV administration of 115 of Optiray 320, CT angiogram of the neck was perfor med from the aortic arch to the skull base. Images are reviewed in the axial, sagittal, and coronal p lanes. 3-D MIPS images are created and assessed. IV contrast was administered without complication. A ll measurements were calculated based on NASCET criteria. A dose lowering technique was utilized adh ering to the principles of ALARA. FINDINGS: Thoracic aorta: Visualized portions of the thoracic aorta are normal in caliber. The aortic arch demo nstrates standard 3-vessel anatomy. Right carotid arterial system: The right common carotid artery is widely patent, as are the right int ernal and external carotid arteries. Calcified plaque is noted in the carotid bulb. Left carotid arterial system: The left common carotid artery is widely patent, as are the left internet marketing assistant al and external carotid arteries. Calcified plaque is noted in the carotid bulb. Vertebral arteries: The vertebral arteries are widely patent bilaterally noting left-sided dominance. Subclavian arteries: Widely patent bilaterally. Intracranial vasculature: The visualized intracranial vessels at the skull base are patent. The right vertebral artery terminates as the PICA. Jugular veins: Widely patent bilaterally. Brain parenchyma: The visualized brain parenchyma the skull base is within normal limits. Lung apices: Fibrotic changes noted at the apices. There are calcified granulomas. Upper lobe lung pa renchyma is otherwise clear as imaged. Soft tissues: The visualized pharyngeal soft tissues are normal in appearance noting angiographic pha se technique. The oropharyngeal airway appears widely patent. The salivary and thyroid glands are nor mal in appearance. No cervical lymphadenopathy is seen. Skeletal structures: The skeletal structures are osteopenic. The visualized calvarium at the skull ba se appears intact. The imaged cervical spine appears maintained noting advanced multilevel spondylosi s. No lytic or blastic lesion is seen. Sinuses and mastoids: The visualized paranasal sinuses are clear. There is trace left mastoid effusio n. The right mastoid air cells are well pneumatized. Cerumen is noted in the right external auditory canal. IMPRESSION: Unremarkable CT angiogram of the neck. ACT 112: Negative or not required by law. Electronically signed by: Joe Quispe M.D. 05/18/2023 1:39 PM
[2023-05-18 13:45] LABS: Basophils # (auto) 0.04 K/uL (0.00-0.20); Basophils % (auto) 0.7 %; Eosinophils # (auto) 0.27 K/uL (0.00-0.50); Eosinophils % (auto) 4.9 %; Hemoglobin 12.9 g/dl (14.0-18.0); Immature Granulocytes # (auto) 0.02 K/uL (0.01-0.20); Immature Granulocytes % (auto) 0.4 %; Lymphocytes % (auto) 18.3 %; Mean Corpuscular Hemoglobin 32.3 pg (25.0-34.0); Mean Corpuscular Hgb Conc 33.9 g/dL (32.0-36.0); Mean Platelet Volume 9.9 fL (9.4-12.4); Monocytes # (auto) 0.75 K/uL (0.11-0.59); Monocytes % (auto) 13.7 %; Neutrophils # (auto) 3.38 K/uL (1.40-6.50); Platelet Count 216 K/uL (130-400); RDW Coefficient of Variation 11.9 % (11.5-14.5); RDW Standard Deviation 41.1 fL (36.4-46.3); White Blood Count 5.46 K/ul (4.8-10.8)
[2023-05-18 13:56] LABS: Partial Thromboplastin Time 29 Seconds (21-31); Prothrombin Time 11.2 Seconds (9.0-12.0)
[2023-05-18 14:14] LABS: Albumin Globulin Ratio 1.4 (0.9-2); Albumin Level 3.9 gm/dl (3.4-5.0); BUN Creatinine Ratio 32.4 (10-20); Bilirubin,Total 0.5 mg/dl (0.2-1.0); Calcium 8.8 mg/dl (8.6-10.3); Creatinine Clr Calc Pharmacy 72.1 ml/min; Est GFR (African American) 103.4 ml/min; Est GFR (Non-African American) 89.2 ml/min; Globulin 2.8 gm/dl (2.5-4.0); Magnesium 1.8 mg/dl (1.7-2.4); Potassium 4.5 mmol/L (3.5-5.1); Total Protein 6.7 gm/dl (6.0-8.3)
[2023-05-18 14:20] LABS: Troponin I High Sensitivity 5.7 pg/ml (0-20)
--- NOTE | 2023-05-18 14:30 | History & Physical Report ---
Date of Service May 18, 2023 Assessment & Plan (1) Stroke-like symptoms: Plan: CVA Eval Presented with dysarthria, left facial droop at approximately 9 AM onset. Facial droop has resolved. Dysarthria has resolved. Patient feels 90% back to baseline. TIA/CVA versus severe symptomatic hypertension. Patient does feel his symptoms improved shortly after BP controlled - No residual sx at tiem of assessment - Lacunar infarct ~1 yr ago. MRI 05/2021: 1.3 x 1.4 cm lacunar infarct on right temporal lobe - Telestroke: No TNKase. - BP 220s on admit, normalized post labetelol -Patient to take aspirin this morning. Switched to Plavix given new CVA symptoms. DAPT evaluation based on MRI, deferred on admission MRI pending, CThead without acute findings, angiography is without significant stenosis or occlusion Will lower permissive hypertension parameters slightly as patient feels his symptoms significantly improved with treatment of his hypertension and DDx does include symptomatic hypertension. Goal BP less than 200, if MRI demonstrates acute stroke then will allow for permissive hypertension to typical goal of 220 Atorvastatin increased to 40 mg, lipid panel pending. Decrease atorvastatin if LDL is less than 40 (2) Hypertension: Plan: Hypertension Permissive hypertension for 24 hours, received labetalol for BP greater than 220 with subsequent normalization As noted above. Lisinopril continued 05/19 (3) H/O: CVA (cerebrovascular accident): (4) Hyponatremia: Plan: Chronic mild hyponatremia Primary treatments ranging from [id number]. 127 on admission [employer] water restriction continued. Patient has been seen by nephrology for this and sodium supplementation is not recommended Trended (5) Sleep disturbance: Plan: Sleep disturbance Home temazepam continued, patient has been on this for many years Ambien deferred as patient has had side effects of this and confusion in the past while hospitalized Patient did not have past benefit with trazodone and felt it made his sleep disruption worse Plan DVT prophylaxis: Lovenox, hold if large territory infarct is seen on MRI Disposition: PCU CODE STATUS: Full code Diet: Heart healthy History of Present Illness Primary Care Provider: Alesha Gonsalez MD Ahsan is a 78-year-old male presents for CVA evaluatation Abrupt onset of dysarthria at approximately 9 AM on 05/18. Patient has a history of CVA. On ER assessment was noted to have dysarthria and left-sided facial droop. Patient was evaluated as a stroke alert. He has history of prior CVA and is on aspirin/atorvastatin 20. EKG on admission is sinus with PVCs. No known history of Afib Ahsan is seen at the bedside with his family present. He reports that he wears sunglasses even while indoors as ever since his stroke 1 year ago he has baseline photosensitivity which has not changed. He reports his speech suddenly became more garbled this morning at around 9 AM, he feels almost completely back to normal. He notes he had a slight headache with high blood pressure this morning, and notes that he felt much better after his blood pressure was improved. He did take his medicines this morning including lisinopril aspirin and atorvastatin.. He denies any extremity weakness or sensory change. He felt shaky during the episode but denies fever, chills, and shaking sweats. No cough or respiratory symptoms. No abdominal pain. No dysuria. No lightheadedness/dizziness. Denies any history of A-fib and has not had any chest pain or chest pressure at any point. Does not use tobacco products, rare social alcohol use. Full code Allergies Allergy/AdvReac Type Severity Reaction Status Date / Time zolpidem AdvReac Intermediate DELIRIUM Verified 05/18/23 14:24 Home Medications Medication Instructions Recorded Confirmed Type calcium carb 300 mg-D3 20 mcg-mag 1 tab PO QAM 08/04/18 05/18/23 History ox 25 mg-nuclear spectroscopist 0.5 [id number] tablet (Caltrate-D3 Plus Minerals) magnesium oxide 400 mg PO QAM 08/04/18 05/18/23 History multivitamin 1 tab PO QAM 08/04/18 05/18/23 History cyanocobalamin (vitamin B-12) 1,000 mcg PO Q2D 07/30/19 05/18/23 History 1,000 mcg tablet cetirizine 10 mg tablet (Allergy 10 mg PO DAILY PRN Allergy Symptoms 05/22/21 05/18/23 History Relief (cetirizine)) aspirin 81 mg tablet,delayed 81 mg PO DAILY #30 tabs 06/15/21 05/18/23 Rx release (Adult Aspirin Regimen) atorvastatin 20 mg tablet 20 mg PO DAILY #90 tabs 05/31/22 05/18/23 Rx nut.therapy,urea cycle disordr 15 1 ea PO DAILY #400 grams 06/17/22 05/18/23 Rx gram-440 kcal/100 gram oral powder fluticasone propionate 50 1 spray intranasal BID #16 grams 07/09/22 05/18/23 Rx mcg/actuation nasal spray,suspension (Flonase Allergy Relief) sodium chloride 1,000 mg soluble 1,000 mg PO BID #180 tabs 08/19/22 05/18/23 Rx tablet lisinopril 20 mg tablet 20 mg PO QAM #90 tabs 09/30/22 05/18/23 Rx acetaminophen 500 mg tablet 1,000 mg (2 x 500 mg) PO BIDWMEAL 04/05/23 05/18/23 Rx (Tylenol Extra Strength) PRN fever #20 tabs temazepam 30 mg capsule 30 mg PO HS PRN Sleep #30 caps 04/28/23 05/18/23 Rx amoxicillin 500 mg tablet 2,000 mg PO DIRECTED PRN PRIOR 05/18/23 05/18/23 History TO DENTAL PROCEDURES Past Med/Surg History Medical History Dental infection Sinus infection Sinus infection Acute medical illness Sinus congestion Right-sided lacunar infarction CVA (cerebral vascular accident) Lab test negative for COVID-19 virus Pneumonitis Sinus pressure Right shoulder pain Left femoral hernia without obstruction or gangrene Scoliosis Osteopenia Osteoarthritis of first carpometacarpal joint, unspecified Multiple pulmonary nodules Knee pain, bilateral Insomnia Inguinal hernia Hypertension Disc degeneration, lumbar Anemia, mild Surgical History S/P genital surgery (~2003) Penile prosthetic device S/P shoulder surgery S/P hernia repair H/O radical retropubic prostatectomy History of herniorrhaphy Family History Father , age 89 Alzheimer disease Coronary heart disease [place] lung Paget's disease Patient Mother , age 85 Coronary heart disease Stroke multiple first on at age 78 Hypertension Denies family history of Prostate cancer Social History Smoking Status: Never smoker Second Hand Exposure: No; Do You Dip or Chew Tobacco: No; Hx Alcohol Use: Yes (social) Hx Substance Use: No Preferred Language: Greek Communication Ability: Effective Visual Impairment: No Limitations Hearing Ability: Normal marital status: Current Living Situation: Spouse current occupational status: retired current occupation: [employer] Feels Safe at Home: Yes Physical Activity Frequency: Daily Physical Activity Frequency Comment: hike [place] 5-6 times a week Seatbelt Use: always Physical Exam Physical Exam: General: A&Ox3. NAD. Cooperative. HEENT: Atraumatic, normocephalic. Vision and hearing grossly intact, chronically decreased visual acuity since prior stroke without change. Patient does wear sunglasses due to photosensitivity Pulm: CTAB A&P. -wheezes, -rales, -rhonchi. Symmetrical chest rise. No increased work of breathing. No respiratory distress. Cardiac: RRR, -mrg. Radial pulses intact and symmetrical. Abdominal: Nontender, nondistended, soft. BS present. Extremities: Cardiovascular Specialist strength, elbow flexion, hip flexion, ankle dorsiflexion/plantarflexion 5/5 bilateral Results & Data Results & Data Vital Signs (Past 12 Hours) Vital Signs Temp Pulse Resp BP Pulse Ox O2 Del Method 05/18/23 14:00 60 22 167/96 H 99 Room Air 05/18/23 13:51 59 L 167/96 H 05/18/23 13:45 60 20 166/117 H 100 Room Air 05/18/23 13:42 61 17 155/96 H 100 Room Air 05/18/23 13:36 73 05/18/23 13:33 79 21 192/127 H 96 Room Air 05/18/23 13:31 81 19 214/116 H 95 Room Air 05/18/23 13:11 36.5 C 70 16 214/117 H 99 Room Air PG Care Time/CCT Total # of Minutes Spent Total Time Spent with Patient: Total time spent is greater than 50% in coordination of care (as documented) at patient's floor/unit and/or counseling patient: Coding Level of Care Code 83725 INT INP/OBS CARE 3/75MIN Diagnoses Stroke-like symptoms R29.90 Hypertension I10 H/O: CVA (cerebrovascular accident) Z86.73 Hyponatremia E87.1 Sleep disturbance G47.9
--- NOTE | 2023-05-18 14:43 | XRay Report ---
XR chest 1V portable CLINICAL HISTORY: neuro deficit, acute stroke suspected TECHNIQUE: Single frontal radiograph of the chest was obtained. Comparison: Comparison is made to chest radiograph 04/29/2020 FINDINGS: No lines and tubes are seen. Cardiomegaly is noted. Elevated left hemidiaphragm is again seen with in terstitial thickening. No airspace disease. No evidence of pleural effusion or pneumothorax. IMPRESSION: No acute chest disease. ACT 112: Negative or not required by law. Electronically signed by: Marcial Hernandez M.D. 05/18/2023 2:41 PM
--- NOTE | 2023-05-18 16:03 | Electrocardiogram Report ---
Test Reason : Blood Pressure : / mmHG Vent. Rate : 077 BPM Atrial Rate : 077 BPM P-R Int : 194 ms QRS Dur : 098 ms QT Int : 402 ms P-R-T Axes : 072 048 064 degrees QTc Int : 454 ms Sinus rhythm with Premature supraventricular complexes Minimal voltage criteria for LVH, may be normal variant ( ) Borderline ECG When compared with ECG of 17-NOV-2021 10:51, Premature supraventricular complexes are now Present Confirmed by Murray Nobles ([id number]) on 05/18/2023 4:02:34 PM Referred By: REFERRED SELF Confirmed By:Murray Nobles
[2023-05-18] MEDS ORDERED: TEMAZEPAM 15 MG CAPSULE PO PRN (16:55)
[2023-05-18] MEDS ORDERED: PHARMACIST DISCHARGE MED REC CONSULT PRN (16:55)
[2023-05-18] MEDS ORDERED: CETIRIZINE HCL 10 MG TABLET PO PRN (16:55)
[2023-05-18] MEDS ORDERED: LABETALOL HCL IV 5 MG/ML 20ML IV PRN (16:55)
[2023-05-18] MEDS: SODIUM CHLORIDE 1 GM TABLET PO SCH (21:23)
[2023-05-18] MEDS: FLUTICASONE PROPIONATE NA SPR 16 GM BTL NAE SCH (21:24)
--- NOTE | 2023-05-18 22:09 | Magnetic Resonance Report ---
Exam(s): MRI HEAD Without Contrast EXAM: MR Head Without Intravenous Contrast CLINICAL HISTORY: Reason for exam: cva eval. TECHNIQUE: Magnetic resonance images of the head/brain without intravenous contrast in multiple planes. COMPARISON: CT head from May 18, 2023 and MRI brain from May 27, 2021 FINDINGS: Brain: There is mild diffuse cerebral and cerebellar atrophy as well as mild periventricular white matter T2 hyperintensity consistent with chronic small vessel disease and/or senescent changes, similar to previous. No areas of diffusion restriction are seen to indicate acute stroke. No hemorrhage. Ventricles: Unremarkable. No ventriculomegaly. Bones/joints: Unremarkable. No acute fracture. Sinuses: Unremarkable as visualized. No acute sinusitis. Mastoid air cells: Unremarkable as visualized. No mastoid effusion. Orbits: Unremarkable as visualized. IMPRESSION: There is mild diffuse cerebral and cerebellar atrophy as well as mild periventricular white matter T2 hyperintensity consistent with chronic small vessel disease and/or senescent changes, similar to previous. No areas of diffusion restriction are seen to indicate acute stroke. Electronically signed by: Justice Mock MD 05/18/23 22:08 PM
[2023-05-19] MEDS: ACETAMINOPHEN 500 MG TAB PO PRN ×2 (01:05→10:50)
[2023-05-19] MEDS: SODIUM CHLORIDE 0.9% 500 ML IV SCH ×3 (01:05→10:11)
[2023-05-19 02:24] LABS: Basophils # (auto) 0.04 K/uL (0.00-0.20); Basophils % (auto) 0.7 %; Eosinophils % (auto) 4.9 %; Hematocrit (blood only) 34.5 % (42.0-52.0); Hemoglobin 11.8 g/dl (14.0-18.0); Immature Granulocytes # (auto) 0.02 K/uL (0.01-0.20); Immature Granulocytes % (auto) 0.3 %; Lymphocytes % (auto) 19.6 %; Mean Corpuscular Hemoglobin 32.3 pg (25.0-34.0); Mean Corpuscular Hgb Conc 34.2 g/dL (32.0-36.0); Mean Corpuscular Volume 94.5 fL (80.0-100.0); Mean Platelet Volume 9.9 fL (9.4-12.4); Monocytes # (auto) 0.84 K/uL (0.11-0.59); Monocytes % (auto) 13.7 %; Neutrophils # (auto) 3.71 K/uL (1.40-6.50); Neutrophils % (auto) 60.8 %; Platelet Count 195 K/uL (130-400); RDW Coefficient of Variation 11.9 % (11.5-14.5); RDW Standard Deviation 41.3 fL (36.4-46.3); Red Blood Count 3.65 M/uL (4.70-6.10); White Blood Count 6.11 K/ul (4.8-10.8)
[2023-05-19 02:47] LABS: BUN Creatinine Ratio 27.3 (10-20); Calcium 8.1 mg/dl (8.6-10.3); Chol HDL Ratio 2.2 (0-5); Est GFR (African American) 106.6 ml/min; Potassium 3.6 mmol/L (3.5-5.1)
[2023-05-19] MEDS ORDERED: Nursing to Pharmacy Communication SCH (05:15)
[2023-05-19 07:02] LABS: Estimated Average Glucose 114 mg/dl; Hemoglobin A1C 5.6 % (4.5-5.6)
[2023-05-19] MEDS ORDERED: CALCIUM 600MG + VIT D 400 IU TAB PO SCH (09:00)
[2023-05-19] MEDS ORDERED: CLOPIDOGREL BISULFATE 75 MG TAB PO SCH (09:00)
[2023-05-19] MEDS ORDERED: ATORVASTATIN 20 MG TAB PO SCH (09:00)
[2023-05-19] MEDS ORDERED: lisinopril 20 MG TAB PO SCH (09:00)
[2023-05-19] MEDS: FLUTICASONE PROPIONATE NA SPR 16 GM BTL NAE SCH (10:09)
[2023-05-19] MEDS: SODIUM CHLORIDE 1 GM TABLET PO SCH (10:10)
[2023-05-19] MEDS ORDERED: ENOXAPARIN INJ 40 MG/0.4 ML SYR SQ SCH (11:00)
--- NOTE | 2023-05-19 12:52 | Discharge Summary ---
Date of Service May 19, 2023 Admission HPI Per Admitting Provider Ahsan is a 78-year-old male presents for CVA evaluatation Abrupt onset of dysarthria at approximately 9 AM on 05/18. Patient has a history of CVA. On ER assessment was noted to have dysarthria and left-sided facial droop. Patient was evaluated as a stroke alert. He has history of prior CVA and is on aspirin/atorvastatin 20. EKG on admission is sinus with PVCs. No known history of Afib Ahsan is seen at the bedside with his family present. He reports that he wears sunglasses even while indoors as ever since his stroke 1 year ago he has baseline photosensitivity which has not changed. He reports his speech suddenly became more garbled this morning at around 9 AM, he feels almost completely back to normal. He notes he had a slight headache with high blood pressure this morning, and notes that he felt much better after his blood pressure was improved. He did take his medicines this morning including lisinopril aspirin and atorvastatin.. He denies any extremity weakness or sensory change. He felt shaky during the episode but denies fever, chills, and shaking sweats. No cough or respiratory symptoms. No abdominal pain. No dysuria. No lightheadedness/dizziness. Denies any history of A-fib and has not had any chest pain or chest pressure at any point. Does not use tobacco products, rare social alcohol use. Full code Principal Diagnosis Suspected TIA Discharge Exam General-alert and oriented x3, no fevers, no chills HEENT-head atraumatic and normocephalic, pupils equal and reactive to light, extraocular muscles intact Neck-no lymphadenopathy or thyromegaly, trachea midline Chest-clear to auscultation percussion. No rales wheezing or rhonchi Cardiac-regular rate and rhythm, normal S1 and S2 Abdomen-normal bowel sounds, nontender, no hepatosplenomegaly Extremities-no cyanosis, clubbing, or edema Neuro-cranial nerves II through XII intact, motor and sensory function within normal limits, strength symmetrical, no focal deficits Psych-normal affect, normal mood Discharge Data Allergies Allergy/AdvReac Type Severity Reaction Status Date / Time zolpidem AdvReac Intermediate DELIRIUM Verified 05/18/23 14:24 Consultations 05/18/23 14:24 ED Decision to Admit Stat Ordered Studies 05/18/23 13:14 CT angio head w con Stat CT angio neck with con Stat CT head/brain wo con Stat 05/18/23 16:55 MR brain wo con Routine Hospital Course (1) Stroke-like symptoms: This appears to be a TIA. All neurological deficits have resolved. Brain MRI scan negative for acute CVA. Teleneurology entry noted. Plavix has been added to his other medications. Lipid profile looks good. (2) Hypertension: Stable. Continue current medical management (3) H/O: CVA (cerebrovascular accident): Past history. Continue current medical management (4) Hyponatremia: Chronic mild hyponatremia. Sodium is mildly low and unlikely to have caused his neurological symptoms. No intervention needed at this time. (5) Sleep disturbance: Stable. Continue temazepam as needed. Plan Home today, May 19, with addition of Plavix Total Time Total Time Spent Total Time Spent (In Minutes): 45 minutes Discharge Plan Discharge Items Patient Disposition: Home - Self-Care Reason For Visit: CVA EVAL Discharge Diagnosis: Suspected TIA Activity: Resume your previous activity Non-emergency contact: Primary Care Provider Call non-emergency contact if: you have any medication questions and your symptoms worsen Follow-up/Referrals: Alesha Gonsalez MD [Primary Care Provider] - Diet: Regular and Heart Healthy Addtl Attending Provider Instructions: Plavix (clopidogrel) is a new medication. All other medications remain the same Pending Studies at Discharge: No Stand-Alone Forms: [facility], Smoking Cessation Medications and DC Order Prescriptions: New clopidogrel 75 mg Tablet 75 mg PO QAM Qty: 30 0RF Continued cyanocobalamin (vitamin B-12) 1,000 mcg tablet 1,000 mcg PO Q2D aspirin [Adult Aspirin Regimen] 81 mg tablet,delayed release (DR/EC) 81 mg PO DAILY Qty: 30 2RF atorvastatin 20 mg tablet 20 mg PO DAILY Qty: 90 3RF Hold Instructions: while on paxlovid sodium chloride 1,000 mg tablet,soluble 1,000 mg PO BID Qty: 180 3RF lisinopril 20 mg tablet 20 mg PO QAM Qty: 90 3RF temazepam 30 mg capsule 30 mg PO HS PRN (Reason: Sleep) Qty: 30 5RF nut.therapy,urea cycle disordr 15 gram-440 kcal/100 gram powder 1 ea PO DAILY Qty: 400 0RF acetaminophen [Tylenol Extra Strength] 500 mg tablet 1,000 mg PO BIDWMEAL PRN (Reason: fever) Qty: 20 0RF fluticasone propionate [Flonase Allergy Relief] 50 mcg/actuation spray,suspension 1 spray intranasal BID Qty: 16 2RF Rx Instructions: administer into each nostril multivitamin Tablet 1 tab PO QAM Caltrate-D3 Plus Minerals 300 mg-800 unit -25 mg-0.5 mg Tablet 1 tab PO QAM magnesium oxide 400 mg magnesium Tablet 400 mg PO QAM cetirizine [Allergy Relief (cetirizine)] 10 mg Tablet 10 mg PO DAILY PRN (Reason: Allergy Symptoms) amoxicillin 500 mg tablet 2,000 mg PO DIRECTED PRN (Reason: PRIOR TO DENTAL PROCEDURES) Rx Instructions: 30- 60 mins prior dental procedure Discharge Orders: Discharge Order (Routine); Ordered 05/19/23 Ordered By: Jose A Mai Admission Data Admit Date/Time: 05/18/23 14:49 Attending Provider: Jose A Mai Admit Provider: Gonsalo Solares Primary Care Provider: Alesha Gonsalez V. Other Providers: Gonsalo Solares Coding Level of Care Code 59735 INP/OBS DISCH >30 MIN Diagnoses Stroke-like symptoms R29.90 Hypertension I10 H/O: CVA (cerebrovascular accident) Z86.73 Hyponatremia E87.1 Sleep disturbance G47.9
[2023-05-19] MEDS ORDERED: STROKE PATIENT DISCHARGE STA (12:53)
--- NOTE | 2023-05-19 14:09 | Pharmacy Report ---
- Date of Service May 19, 2023 - Pharmacy CVA/TIA Medication Review Medications to Prevent Stroke handout has been added to the patients discharge packet. Antiplatelet(s) * Clopidogrel 75 mg daily Cholesterol * Statin: atorvastatin 20 mg daily * High intensity statin deferred; LDL 53 DVT Prophylaxis * Enoxaparin SQ Therapeutic Anticoagulation * No history of Afib/Aflutter noted Type 2 Diabetes * Patient does not have T2DM
--- NOTE | 2023-05-19 15:52 | XCELERA ---
[id number]
--- NOTE | 2023-05-20 09:47 | Pharmacy Report ---
Pharmacist Stroke Counseling - Date of Service May 20, 2023 - Scope: Pharmacy has been consulted to provide medication discharge counseling for this patient admitted with transient ischemic attack as per the Pharmacist Discharge Counseling for Stroke Patients Protocol. - Medications on Discharge: Home Medications Medication Instructions Recorded Confirmed calcium carb 300 mg-D3 20 mcg-mag 1 tab PO QAM 08/04/18 05/18/23 ox 25 mg-copyist 0.5 [id number] tablet (Caltrate-D3 Plus Minerals) magnesium oxide 400 mg PO QAM 08/04/18 05/18/23 multivitamin 1 tab PO QAM 08/04/18 05/18/23 cyanocobalamin (vitamin B-12) 1,000 mcg PO Q2D 07/30/19 05/18/23 1,000 mcg tablet cetirizine 10 mg tablet (Allergy 10 mg PO DAILY PRN Allergy Symptoms 05/22/21 05/18/23 Relief (cetirizine)) amoxicillin 500 mg tablet 2,000 mg PO DIRECTED PRN PRIOR 05/18/23 05/18/23 TO DENTAL PROCEDURES New Rx's Medication Instructions Recorded aspirin 81 mg tablet,delayed 81 mg PO DAILY #30 tabs 06/15/21 release (Adult Aspirin Regimen) atorvastatin 20 mg tablet 20 mg PO DAILY #90 tabs 05/31/22 nut.therapy,urea cycle disordr 15 1 ea PO DAILY #400 grams 06/17/22 gram-440 kcal/100 gram oral powder fluticasone propionate 50 1 spray intranasal BID #16 grams 07/09/22 mcg/actuation nasal spray,suspension (Flonase Allergy Relief) sodium chloride 1,000 mg soluble 1,000 mg PO BID #180 tabs 08/19/22 tablet lisinopril 20 mg tablet 20 mg PO QAM #90 tabs 09/30/22 acetaminophen 500 mg tablet 1,000 mg (2 x 500 mg) PO BIDWMEAL 04/05/23 (Tylenol Extra Strength) PRN fever #20 tabs temazepam 30 mg capsule 30 mg PO HS PRN Sleep #30 caps 04/28/23 clopidogrel 75 mg tablet 75 mg PO QAM #30 tabs 05/19/23 - Action: The above medications, specifically ones for stroke treatment/prophylaxis, have been reviewed in detail with the patient via phone call today post discharge. This includes indication, common adverse reactions, drug interactions, and medication administration. Medication counseling has been employed using the teach-back method to ensure understanding. - Outcome: The patient demonstrated understanding of the medications. Additional comments: Spoke over the phone with patient today- he was very pleasant and receptive to counseling. Reviewed new medications to prevent stroke that is Clopidogrel and also old ones including Aspirin and Atorvastatin. Discussed why they are being used and common side effects in great detail. Reviewed how to use the medications, what to do if doses are missed, common drug interactions, common side effects, what to watch out for while using the medications. Pt verbalized understanding and restated the marrero points of each medication. Thank you for allowing pharmacy to be involved in the care of this patient. Please call [phone] with any additional questions
== END 2023-05-19 17:51 | disposition home or self-care (01) ==
LOC: ED 13:08 → EDINP 13:08 → SUATTDRO 14:49 → EDINP 16:57

== ENCOUNTER 2023-05-31 20:52 | Inpatient (IN) ==
[2023-05-31] MEDS ORDERED: LABETALOL HCL IV 5 MG/ML 20ML IV STA (21:10)
--- NOTE | 2023-05-31 21:19 | Emergency Department Note ---
Impression & Plan Hypertensive emergency, Chronic hyponatremia ED Provider Note Provider: Justice Calle MD DATE OF SERVICE: 05/31/2023 CHIEF COMPLAINT: Hypertensive, head feels weird HISTORY OF PRESENT ILLNESS: Patient is a 78-year-old gentleman history of CVA in the past, hypertension, and hyponatremia presenting here today with . Evidently around 4 PM began to feel quite odd in his head and his blood pressure was significantly elevated at home. States he has been taking his medications and did have a change to Plavix recently upon discharge. Denies any speech issues today or numbness or tingling that is new. Denies any chest pain or shortness of breath. No recent illness. Was evaluated here several weeks ago and states somewhat similar though is not having speech issues currently. States he feels very shaky at the moment. No trauma reported. Discussion with patient and his they clearly states symptoms started around 4 PM. Started shaking about an hour ago. Denies headache currently. Only had some saltines this past evening for dinner. PAST MEDICAL HISTORY: As noted above MEDICATIONS: Reviewed home medications. SOCIAL HISTORY: PHYSICAL EXAM: GENERAL: alert and oriented sunglasses in place somewhat tremulous in bed at bedside, fairly gaunt in habitus Head: normocephalic and atraumatic EYES: Sunglasses removed, no injection, discharge or icterus. PERRL, EOMI. NECK: Trachea midline. Supple. ENT: Mucous membranes pink and moist. LUNGS: Airway patent. No retractions. Breath sounds clear HEART: Regular tachycardic rate and rhythm. No chest wall tenderness ABDOMEN: Soft and non-tender, without guarding or rebound. SKIN: Acyanotic, warm, dry, without rashes EXTREMITIES: Without swelling, tenderness or deformity NEUROLOGICAL: No focal deficits but a little bit tremulous. No aphasia. No facial droop or slurred speech. Tongue midline normal strength and tone in the extremities. Sensation to gross touch normal. EK bpm sinus rhythm first-degree AV block. No PVC. No acute ST segment elevation. QTc 444. CONTINUOUS CARDIAC MONITORING: was ordered and showed a heart rate of 60s-100s bpm in sinus tachycardia to normal sinus rhythm Patient's laboratory studies and imaging reviewed. Differential includes Benign hypertension, hypertensive emergency, cardiovascular pathology, toxicologic, pheochromocytoma, electrolyte abnormality, renal disease, endorgan damage, CVA, as well as other pathologies. IMPRESSION/MEDICAL DECISION MAKING: Patient stroke alert from triage. On further discussion with the patient however, appears symptoms started around 4 PM so he is outside the thrombolytic window. Patient with some nonspecific shaking and odd head sensation feeling in no significant focal numbness or weakness on exam. Patient is severely hypertensive and question more of a hypertensive emergency situation. Will give some labetalol. Did send for CT and CT angiograms as well as basic blood work obtained. No active chest pain or lower suspicion for ACS. As the patient is outside the window for thrombolytics do not emergently call the stroke team. Blood work without significant anemia or leukocytosis. Some hyponatremia 128 but not far off previous baseline. Did receive some IV fluids here. Blood pressure responded very quickly to labetalol. No evidence of hepatitis. Per radiology report CT of the head without acute hemorrhage or lesion. No acute vascular abnormality of the CT angiogram of the neck or head without obvious acute vascular abnormality with stable chronic right vertebral artery stenosis or occlusion. Did receive a call from [facility] to discuss with the radiologist that reports. Waited on the phone for several minutes but the radiology guidance secretary was unable to get the radiologist on the phone and as such I informed her that I did read the report send if the radiologist wish to call me they could but make them aware I had knowledge of the reports they have completed. Troponin is normal here and doubt ACS. Did receive some IV fluid as his blood pressure again dropped quite quickly but did moderated some is not having other stroke symptoms. Discussed with the patient as well as the hospitalist team further care here given his uncontrolled hypertension and symptoms. Again lower suspicion for acute CVA at this time. Can tirelessly some component of stress and anxiety is at play here. DIAGNOSIS: Hypertensive emergency DISPOSITION: Hospitalist will evaluate Patient was agreeable with this plan. Critical Care I have personally spent 32 minutes of critical care time in the direct management of this patient. This includes bedside care, interpretation of diagnostic studies, and testing, discussion with consultants, patient, and family members, and other required patient management activities. These 32 minutes is in excess of all separately billable procedures. Past Med/Surg History Medical History Dental infection Sinus infection Sinus infection Acute medical illness Sinus congestion Right-sided lacunar infarction CVA (cerebral vascular accident) Lab test negative for COVID-19 virus Pneumonitis Sinus pressure Right shoulder pain Left femoral hernia without obstruction or gangrene Scoliosis Osteopenia Osteoarthritis of first carpometacarpal joint, unspecified Multiple pulmonary nodules Knee pain, bilateral Insomnia Inguinal hernia Hypertension Disc degeneration, lumbar Anemia, mild Surgical History S/P genital surgery (~2003) S/P shoulder surgery S/P hernia repair H/O radical retropubic prostatectomy History of herniorrhaphy Family History Father , age 89 Alzheimer disease Coronary heart disease Cash' lung Paget's disease Patient Mother , age 85 Coronary heart disease Stroke multiple first on at age 78 Hypertension Denies family history of Prostate cancer Social History Smoking Status: Never smoker Second Hand Exposure: No; Do You Dip or Chew Tobacco: No; Hx Alcohol Use: No Hx Substance Use: No Preferred Language: Maori Communication Ability: Effective Visual Impairment: No Limitations Hearing Ability: Normal Visual Aid Expert Required: No Beliefs That Will Affect Care: None marital status: Current Living Situation: Spouse current occupational status: retired current occupation: [employer] Feels Safe at Home: Yes Physical Activity Frequency: Daily Physical Activity Frequency Comment: [place] Unruly Concepcion 5-6 times a week Seatbelt Use: always Assistive Devices: None Allergies Allergies Allergy/AdvReac Type Severity Reaction Status Date / Time zolpidem AdvReac Intermediate DELIRIUM Verified 05/25/23 11:04 Home Meds Home Medications Medication Instructions Recorded Confirmed calcium carb 300 mg-D3 20 mcg-mag 1 tab PO QAM 08/04/18 05/31/23 ox 25 mg-stroboscope operator 0.5 [id number] tablet (Caltrate-D3 Plus Minerals) magnesium oxide 400 mg PO QAM 08/04/18 05/31/23 multivitamin 1 tab PO QAM 08/04/18 05/31/23 cyanocobalamin (vitamin B-12) 1,000 mcg PO Q2D 07/30/19 05/31/23 1,000 mcg tablet cetirizine 10 mg tablet (Allergy 10 mg PO DAILY PRN Allergy Symptoms 05/22/21 05/31/23 Relief (cetirizine)) amoxicillin 500 mg tablet 2,000 mg PO DIRECTED PRN PRIOR 05/18/23 05/31/23 TO DENTAL PROCEDURES Previous Rx's Medication Instructions Recorded aspirin 81 mg tablet,delayed 81 mg PO DAILY #30 tabs 06/15/21 release (Adult Aspirin Regimen) fluticasone propionate 50 1 spray intranasal BID #16 grams 07/09/22 mcg/actuation nasal spray,suspension (Flonase Allergy Relief) lisinopril 20 mg tablet 20 mg PO QAM #90 tabs 09/30/22 acetaminophen 500 mg tablet 1,000 mg (2 x 500 mg) PO BIDWMEAL 04/05/23 (Tylenol Extra Strength) PRN fever #20 tabs temazepam 30 mg capsule 30 mg PO HS PRN Sleep #30 caps 04/28/23 clopidogrel 75 mg tablet 75 mg PO QAM #30 tabs 05/25/23 atorvastatin 20 mg tablet 20 mg PO DAILY #90 tabs 05/30/23 Results & Data (ED) Vital Signs Vital Signs - 24 hr 05/31/23 20:53 05/31/23 21:04 05/31/23 21:07 Temperature 36.7 C Temperature Source Temporal Artery Scan Pulse Rate 76 94 H 94 H Pulse Rate [Right Finger] Pulse Rate from SpO2 Sensor 94 H Pulse Rhythm Respiratory Rate 18 20 Respiratory Depth Normal Blood Pressure 234/122 H 199/137 H Blood Pressure [Left Arm] Blood Pressure Mean 159 157 Blood Pressure Mean [Left Arm] Pulse Oximetry 97 98 Oxygen Delivery Method Room Air Sepsis Recent Fever Within 48 Hours No Sepsis New/Unexplained Change in Mental Status No Sepsis Action Taken by Nursing No Action Required 05/31/23 21:20 05/31/23 21:24 05/31/23 21:24 Temperature Temperature Source Pulse Rate 96 H 90 91 H Pulse Rate [Right Finger] Pulse Rate from SpO2 Sensor 90 90 Pulse Rhythm Respiratory Rate 20 17 Respiratory Depth Blood Pressure 194/123 H 163/108 H 163/108 H Blood Pressure [Left Arm] Blood Pressure Mean 146 126 Blood Pressure Mean [Left Arm] Pulse Oximetry 97 97 Oxygen Delivery Method Sepsis Recent Fever Within 48 Hours Sepsis New/Unexplained Change in Mental Status Sepsis Action Taken by Nursing 05/31/23 21:26 05/31/23 21:27 05/31/23 21:28 Temperature Temperature Source Pulse Rate 69 Pulse Rate [Right Finger] 76 73 Pulse Rate from SpO2 Sensor Pulse Rhythm Regular Respiratory Rate 18 19 Respiratory Depth Blood Pressure Blood Pressure [Left Arm] 163/108 H 122/81 Blood Pressure Mean Blood Pressure Mean [Left Arm] 126 94 Pulse Oximetry 97 98 98 Oxygen Delivery Method Room Air Room Air Room Air Sepsis Recent Fever Within 48 Hours Sepsis New/Unexplained Change in Mental Status Sepsis Action Taken by Nursing 05/31/23 21:28 05/31/23 21:30 05/31/23 21:35 Temperature Temperature Source Pulse Rate 73 69 69 Pulse Rate [Right Finger] Pulse Rate from SpO2 Sensor 71 68 69 Pulse Rhythm Respiratory Rate 16 16 18 Respiratory Depth Blood Pressure 122/81 139/85 133/80 Blood Pressure [Left Arm] Blood Pressure Mean 94 103 97 Blood Pressure Mean [Left Arm] Pulse Oximetry 99 99 98 Oxygen Delivery Method Sepsis Recent Fever Within 48 Hours Sepsis New/Unexplained Change in Mental Status Sepsis Action Taken by Nursing 05/31/23 21:38 05/31/23 21:39 05/31/23 21:40 Temperature Temperature Source Pulse Rate 62 70 Pulse Rate [Right Finger] Pulse Rate from SpO2 Sensor 69 Pulse Rhythm Respiratory Rate 15 Respiratory Depth Blood Pressure 131/82 149/94 H Blood Pressure [Left Arm] 133/80 Blood Pressure Mean 112 Blood Pressure Mean [Left Arm] 97 Pulse Oximetry 95 Oxygen Delivery Method Sepsis Recent Fever Within 48 Hours Sepsis New/Unexplained Change in Mental Status Sepsis Action Taken by Nursing 05/31/23 21:45 05/31/23 21:50 05/31/23 21:55 Temperature Temperature Source Pulse Rate 71 68 Pulse Rate [Right Finger] Pulse Rate from SpO2 Sensor 70 69 Pulse Rhythm Respiratory Rate 15 16 Respiratory Depth Blood Pressure 131/82 148/88 H Blood Pressure [Left Arm] 149/81 H Blood Pressure Mean 98 108 Blood Pressure Mean [Left Arm] 103 Pulse Oximetry 94 92 Oxygen Delivery Method Sepsis Recent Fever Within 48 Hours Sepsis New/Unexplained Change in Mental Status Sepsis Action Taken by Nursing 05/31/23 21:55 05/31/23 22:00 05/31/23 22:15 Temperature Temperature Source Pulse Rate 68 70 69 Pulse Rate [Right Finger] Pulse Rate from SpO2 Sensor 69 69 67 Pulse Rhythm Respiratory Rate 14 15 16 Respiratory Depth Blood Pressure 149/91 H 142/96 H 148/85 H Blood Pressure [Left Arm] Blood Pressure Mean 110 111 106 Blood Pressure Mean [Left Arm] Pulse Oximetry 93 94 95 Oxygen Delivery Method Sepsis Recent Fever Within 48 Hours Sepsis New/Unexplained Change in Mental Status Sepsis Action Taken by Nursing 05/31/23 22:19 05/31/23 22:30 Temperature Temperature Source Pulse Rate 67 Pulse Rate [Right Finger] Pulse Rate from SpO2 Sensor 66 Pulse Rhythm Respiratory Rate 15 Respiratory Depth Blood Pressure 161/108 H 174/98 H Blood Pressure [Left Arm] Blood Pressure Mean 125 129 Blood Pressure Mean [Left Arm] Pulse Oximetry 95 96 Oxygen Delivery Method Sepsis Recent Fever Within 48 Hours Sepsis New/Unexplained Change in Mental Status Sepsis Action Taken by Nursing Laboratory Data 05/31/23 20:14 05/31/23 20:14 Lab Results 05/31/23 05/31/23 05/31/23 Range/Units 20:14 21:08 22:32 WBC 7.63 (4.8-10.8) K/ul RBC 4.38 L (4.70-6.10) M/uL Hgb 14.0 (14.0-18.0) g/dl POC Hgb 15.0 (14.0-18.0) g/dl Hct 41.7 L (42.0-52.0) % POC Hct 44 (42-52) % MCV 95.2 (80.0-100.0) fL MCH 32.0 (25.0-34.0) pg MCHC 33.6 (32.0-36.0) g/dL RDW Std Deviation 41.2 (36.4-46.3) fL RDW Coeff of [place] 11.8 (11.5-14.5) % Plt Count 296 (130-400) K/uL MPV 9.8 (9.4-12.4) fL PT 11.0 (9.0-12.0) Seconds INR 1.0 (0.9-1.1) APTT 29 (21-31) Seconds PTT Ratio 1.0 POC Sodium 129 L (135-144) mmol/L Sodium 128 L (136-145) mmol/L POC Potassium 4.0 (3.3-5.0) mmol/L Potassium 4.0 (3.5-5.1) mmol/L POC Chloride 95 L (101-112) mmol/L Chloride 93 L (98-107) mmol/L Carbon Dioxide 28 (21-32) mmol/L POC Total CO2 27 (24-31) mmol/L Anion Gap 7 (3-11) POC Anion Gap 13.0 L (16-25) mmol/L POC BUN 46 H (7-18) mg/dl BUN 52 H (6-23) mg/dl Creatinine 0.86 (0.6-1.4) mg/dl POC Creatinine 1.0 (0.6-1.3) mg/dl Est Cr Clr Drug Dosing 59.1 ml/min Est GFR ( Amer) 95.6 ml/min Est GFR (Non-Af Amer) 82.5 ml/min BUN/Creatinine Ratio 60.5 H (10-20) Glucose 166 H (70-99(Fasting)) mg/dl POC Glucose (other) 171 H (70-99) mg/dl Calcium 9.3 (8.6-10.3) mg/dl POC Ioniz Calcium Kasandra 1.15 (1.12-1.32) mmol/l Magnesium 1.9 (1.7-2.4) mg/dl Total Bilirubin 0.5 (0.2-1.0) mg/dl AST 29 (13-39) U/L ALT 26 (7-52) U/L Alkaline Phosphatase 87 (34-104) U/L Troponin I High Sens 8.3 9.6 (0-20) pg/ml Total Protein 7.5 (6.0-8.3) gm/dl Albumin 4.3 (3.4-5.0) gm/dl Globulin 3.2 (2.5-4.0) gm/dl Albumin/Globulin Ratio 1.3 (0.9-2) Administered Medications Discontinued Medications Sodium Chloride (Nss) 1,000 mls @ 999 mls/hr IV .Q1H1M ONE Stop: 05/31/23 22:30 Last Infusion: 05/31/23 22:47 Dose: Infused Documented By: Admin: 05/31/23 21:33 Dose: 999 mls/hr Documented By: ASW Ioversol (Optiray 320 125ml) 119 ml IV ONCE ONE Stop: 05/31/23 21:26 Last Admin: 05/31/23 21:25 Dose: 119 ml Documented By: WESTON Labetalol HCl (Labetalol Hcl Iv 5 Mg/Ml 20ml) 10 mg IV NOW STA Stop: 05/31/23 21:11 Last Admin: 05/31/23 21:24 Dose: 10 mg Documented By: ASW Co-signed By: DOMINGA Imaging Data Radiologist's Impression: Head CT 05/31/23 21:05 CR Exam(s): CT HEAD Without Contrast EXAM: CT Head Without Intravenous Contrast CLINICAL HISTORY: Reason for exam: Neuro deficit, acute, stroke suspected. TECHNIQUE: Axial computed tomography images of the head/brain without intravenous contrast. CTDI is 45.76 mGy and DLP is 774.27 mGy-cm. Automated exposure control was utilized for the study. A dose lowering technique was utilized adhering to the principles of ALARA. COMPARISON: 05/18/2023. FINDINGS: Brain: Mild to moderate generalized brain atrophy. Decreased attenuation within the deep white matter compatible with microangiopathic white matter disease. No hemorrhage. Ventricles: Unremarkable. No ventriculomegaly. Bones/joints: Unremarkable. No acute fracture. Soft tissues: Unremarkable. Sinuses: Unremarkable as visualized. No acute sinusitis. Mastoid air cells: Unremarkable as visualized. No mastoid effusion. IMPRESSION: Chronic changes as described with no acute intracranial hemorrhage or space-occupying lesion. Communications: Call Doctor Stroke Electronically signed by: Gretchen Jaramillo MD 05/31/23 21:58 PM Head CTA 05/31/23 21:09 CR Exam(s): CTA HEAD With Contrast IV Amt: 119 ml optiray 320 EXAM: CT Angiography Head With Intravenous Contrast CLINICAL HISTORY: Reason for exam: HTN, RAZO, shaky. TECHNIQUE: Axial computed tomographic angiography images of the head with intravenous contrast. CTDI is 45.76 mGy and DLP is 774.27 mGy-cm. Automated exposure control was utilized for the study. A dose lowering technique was utilized adhering to the principles of ALARA. MIP reconstructed images were created and reviewed. CONTRAST: Patient received 119 ml optiray 320 of IV contrast COMPARISON: 05/18/2023. FINDINGS: Right internal carotid artery: Mild calcified plaque through the cavernous portion of the right internal carotid artery with less than 50% diameter stenosis. No aneurysm. Right anterior cerebral artery: Unremarkable. No occlusion or significant stenosis. No aneurysm. Right middle cerebral artery: Unremarkable. No occlusion or significant stenosis. No aneurysm. Right posterior cerebral artery: Unremarkable. No occlusion or significant stenosis. No aneurysm. Right vertebral artery: The distal intracranial portion of the right vertebral artery is not visualized, which may indicate sequela of severe stenosis or chronic/old occlusion, unchanged in the interval. Left internal carotid artery: Mild calcified plaque through the cavernous portion of the left internal carotid artery with less than 50% diameter stenosis. No aneurysm. Left anterior cerebral artery: Unremarkable. No occlusion or significant stenosis. No aneurysm. Left middle cerebral artery: Unremarkable. No occlusion or significant stenosis. No aneurysm. Left posterior cerebral artery: Unremarkable. No occlusion or significant stenosis. No aneurysm. Left vertebral artery: Unremarkable as visualized. Basilar artery: Unremarkable. No occlusion or significant stenosis. No aneurysm. IMPRESSION: Nonvisualization of the distal intracranial portion of the right vertebral artery suggestive of severe stenosis or chronic occlusion, stable in the interval. Remainder of the CT angiogram of the brain is negative with no focal stenosis, occlusion or aneurysm seen. Communications: Call Doctor Stroke Electronically signed by: Gretchen Jaramillo MD 05/31/23 22:39 PM Neck CTA 05/31/23 21:09 CR Exam(s): CTA NECK With Contrast IV Amt: 119 ml optiray 320 EXAM: CT Angiography Neck With Intravenous Contrast CLINICAL HISTORY: Reason for exam: HTN, RAZO, shaky. TECHNIQUE: Routine carotid CT angiography protocol was performed with intravenous contrast. NASCET criteria using the distal ICAs for comparison were used for evaluation of stenoses. CTDI is 8.98 mGy and DLP is 350.47 mGy-cm. Automated exposure control was utilized for the study. A dose lowering technique was utilized adhering to the principles of ALARA. MIP reconstructed images were created and reviewed. CONTRAST: Patient received 119 ml optiray 320 of IV contrast COMPARISON: 05/18/2023. FINDINGS: VASCULATURE: Right common carotid artery: Unremarkable. No occlusion or significant stenosis. No dissection. Right internal carotid artery: Minimal calcified plaque of the right carotid bulb. Extracranial segment is patent with no occlusion or significant stenosis. No dissection. Right external carotid artery: Mild calcified plaque at the origin of the right external carotid artery luminal stenosis. Right vertebral artery: Unremarkable. No occlusion or significant stenosis. No dissection. Left common carotid artery: Unremarkable. No occlusion or significant stenosis. No dissection. Left internal carotid artery: Minimal calcified plaque at the left carotid bulb. Mild calcified plaque at the origin of the left internal carotid artery without stenosis. No dissection. Left external carotid artery: Unremarkable. No occlusion. Left vertebral artery: Unremarkable. No occlusion or significant stenosis. No dissection. Aorta: Mild atherosclerotic disease throughout the aortic arch. NECK: Bones/joints: Unremarkable. No acute fracture. Soft tissues: Unremarkable. Lung apices: Lung apices reveal subpleural cystic and interstitial thickening with honeycombing pattern concerning for pulmonary fibrosis. There is nodularity involving the right upper lobe measuring 1.1 cm, cannot exclude nodule/neoplasm. Pleural space: There is mild biapical pleural thickening. CAROTID STENOSIS REFERENCE USING NASCET CRITERIA: % ICA stenosis = (1 - narrowest ICA diameter/diameter of distal cervical ICA) x 100. Mild - <50% stenosis. Moderate - 50-69% stenosis. Severe - 70-94% stenosis. Near occlusion - 95-99% stenosis. Occluded - 100% stenosis. IMPRESSION: Mild calcified atherosclerotic disease as described otherwise no stenosis, occlusion or dissection involving the bilateral carotid and vertebral arteries. Communications: Call Doctor Stroke Electronically signed by: Gretchen Jaramillo MD 05/31/23 22:02 PM Discharge Plan Visit Data Chief Complaint: Stroke/CVA Symptoms Stated Complaint: STROKE SYMPTOMS ED Provider: Justice Calle Discharge Problem: Hypertensive emergency, Chronic hyponatremia Patient Disposition: Being Evaluated by Hospitalist Forms Stand Alone Forms: My [email or web address] Prescriptions Prescriptions: No Action cyanocobalamin (vitamin B-12) 1,000 mcg tablet 1,000 mcg PO Q2D aspirin [Adult Aspirin Regimen] 81 mg tablet,delayed release (DR/EC) 81 mg PO DAILY Qty: 30 2RF lisinopril 20 mg tablet 20 mg PO QAM Qty: 90 3RF temazepam 30 mg capsule 30 mg PO HS PRN (Reason: Sleep) Qty: 30 5RF atorvastatin 20 mg tablet 20 mg PO DAILY Qty: 90 3RF Hold Instructions: while on paxlovid acetaminophen [Tylenol Extra Strength] 500 mg tablet 1,000 mg PO BIDWMEAL PRN (Reason: fever) Qty: 20 0RF fluticasone propionate [Flonase Allergy Relief] 50 mcg/actuation spray,suspension 1 spray intranasal BID Qty: 16 2RF Rx Instructions: administer into each nostril clopidogrel 75 mg tablet 75 mg PO QAM Qty: 30 11RF multivitamin Tablet 1 tab PO QAM Caltrate-D3 Plus Minerals 300 mg-800 unit -25 mg-0.5 mg Tablet 1 tab PO QAM magnesium oxide 400 mg magnesium Tablet 400 mg PO QAM cetirizine [Allergy Relief (cetirizine)] 10 mg Tablet 10 mg PO DAILY PRN (Reason: Allergy Symptoms) amoxicillin 500 mg tablet 2,000 mg PO DIRECTED PRN (Reason: PRIOR TO DENTAL PROCEDURES) Rx Instructions: 30- 60 mins prior dental procedure Referrals Referrals: Alesha Gonsalez MD [Primary Care Provider] -
[2023-05-31 21:20] LABS: iSTAT Ionized Calcium 1.15 mmol/l (1.12-1.32)
[2023-05-31] MEDS ORDERED: OPTIRAY 320 125ml IV ONE (21:25)
[2023-05-31] MEDS ORDERED: SODIUM CHLORIDE 0.9% 1,000 ML IV ONE (21:30)
[2023-05-31 21:32] LABS: Hematocrit (blood only) 41.7 % (42.0-52.0); Mean Corpuscular Hgb Conc 33.6 g/dL (32.0-36.0); Mean Corpuscular Volume 95.2 fL (80.0-100.0); Mean Platelet Volume 9.8 fL (9.4-12.4); Platelet Count 296 K/uL (130-400); RDW Coefficient of Variation 11.8 % (11.5-14.5); RDW Standard Deviation 41.2 fL (36.4-46.3); Red Blood Count 4.38 M/uL (4.70-6.10); White Blood Count 7.63 K/ul (4.8-10.8)
[2023-05-31 21:49] LABS: Albumin Globulin Ratio 1.3 (0.9-2); Albumin Level 4.3 gm/dl (3.4-5.0); BUN Creatinine Ratio 60.5 (10-20); Bilirubin,Total 0.5 mg/dl (0.2-1.0); Calcium 9.3 mg/dl (8.6-10.3); Creatinine Clr Calc Pharmacy 59.1 ml/min; Est GFR (African American) 95.6 ml/min; Est GFR (Non-African American) 82.5 ml/min; Globulin 3.2 gm/dl (2.5-4.0); Magnesium 1.9 mg/dl (1.7-2.4); Total Protein 7.5 gm/dl (6.0-8.3)
[2023-05-31 21:59] LABS: Partial Thromboplastin Time 29 Seconds (21-31)
--- NOTE | 2023-05-31 21:59 | CT Scan Report ---
Exam(s): CT HEAD Without Contrast EXAM: CT Head Without Intravenous Contrast CLINICAL HISTORY: Reason for exam: Neuro deficit, acute, stroke suspected. TECHNIQUE: Axial computed tomography images of the head/brain without intravenous contrast. CTDI is 45.76 mGy and DLP is 774.27 mGy-cm. Automated exposure control was utilized for the study. A dose lowering technique was utilized adhering to the principles of ALARA. COMPARISON: 05/18/2023. FINDINGS: Brain: Mild to moderate generalized brain atrophy. Decreased attenuation within the deep white matter compatible with microangiopathic white matter disease. No hemorrhage. Ventricles: Unremarkable. No ventriculomegaly. Bones/joints: Unremarkable. No acute fracture. Soft tissues: Unremarkable. Sinuses: Unremarkable as visualized. No acute sinusitis. Mastoid air cells: Unremarkable as visualized. No mastoid effusion. IMPRESSION: Chronic changes as described with no acute intracranial hemorrhage or space-occupying lesion. Communications: Call Doctor Stroke Electronically signed by: Gretchen Jaramillo MD 05/31/23 21:58 PM
--- NOTE | 2023-05-31 22:03 | CT Scan Report ---
Exam(s): CTA NECK With Contrast IV Amt: 119 ml optiray 320 EXAM: CT Angiography Neck With Intravenous Contrast CLINICAL HISTORY: Reason for exam: HTN, RAZO, shaky. TECHNIQUE: Routine carotid CT angiography protocol was performed with intravenous contrast. NASCET criteria using the distal ICAs for comparison were used for evaluation of stenoses. CTDI is 8.98 mGy and DLP is 350.47 mGy-cm. Automated exposure control was utilized for the study. A dose lowering technique was utilized adhering to the principles of ALARA. MIP reconstructed images were created and reviewed. CONTRAST: Patient received 119 ml optiray 320 of IV contrast COMPARISON: 05/18/2023. FINDINGS: VASCULATURE: Right common carotid artery: Unremarkable. No occlusion or significant stenosis. No dissection. Right internal carotid artery: Minimal calcified plaque of the right carotid bulb. Extracranial segment is patent with no occlusion or significant stenosis. No dissection. Right external carotid artery: Mild calcified plaque at the origin of the right external carotid artery luminal stenosis. Right vertebral artery: Unremarkable. No occlusion or significant stenosis. No dissection. Left common carotid artery: Unremarkable. No occlusion or significant stenosis. No dissection. Left internal carotid artery: Minimal calcified plaque at the left carotid bulb. Mild calcified plaque at the origin of the left internal carotid artery without stenosis. No dissection. Left external carotid artery: Unremarkable. No occlusion. Left vertebral artery: Unremarkable. No occlusion or significant stenosis. No dissection. Aorta: Mild atherosclerotic disease throughout the aortic arch. NECK: Bones/joints: Unremarkable. No acute fracture. Soft tissues: Unremarkable. Lung apices: Lung apices reveal subpleural cystic and interstitial thickening with honeycombing pattern concerning for pulmonary fibrosis. There is nodularity involving the right upper lobe measuring 1.1 cm, cannot exclude nodule/neoplasm. Pleural space: There is mild biapical pleural thickening. CAROTID STENOSIS REFERENCE USING NASCET CRITERIA: % ICA stenosis = (1 - narrowest ICA diameter/diameter of distal cervical ICA) x 100. Mild - <50% stenosis. Moderate - 50-69% stenosis. Severe - 70-94% stenosis. Near occlusion - 95-99% stenosis. Occluded - 100% stenosis. IMPRESSION: Mild calcified atherosclerotic disease as described otherwise no stenosis, occlusion or dissection involving the bilateral carotid and vertebral arteries. Communications: Call Doctor Stroke Electronically signed by: Gretchen Jaramillo MD 05/31/23 22:02 PM
[2023-05-31 22:31] LABS: Troponin I High Sensitivity 8.3 pg/ml (0-20)
--- NOTE | 2023-05-31 22:40 | CT Scan Report ---
Exam(s): CTA HEAD With Contrast IV Amt: 119 ml optiray 320 EXAM: CT Angiography Head With Intravenous Contrast CLINICAL HISTORY: Reason for exam: HTN, RAZO, shaky. TECHNIQUE: Axial computed tomographic angiography images of the head with intravenous contrast. CTDI is 45.76 mGy and DLP is 774.27 mGy-cm. Automated exposure control was utilized for the study. A dose lowering technique was utilized adhering to the principles of ALARA. MIP reconstructed images were created and reviewed. CONTRAST: Patient received 119 ml optiray 320 of IV contrast COMPARISON: 05/18/2023. FINDINGS: Right internal carotid artery: Mild calcified plaque through the cavernous portion of the right internal carotid artery with less than 50% diameter stenosis. No aneurysm. Right anterior cerebral artery: Unremarkable. No occlusion or significant stenosis. No aneurysm. Right middle cerebral artery: Unremarkable. No occlusion or significant stenosis. No aneurysm. Right posterior cerebral artery: Unremarkable. No occlusion or significant stenosis. No aneurysm. Right vertebral artery: The distal intracranial portion of the right vertebral artery is not visualized, which may indicate sequela of severe stenosis or chronic/old occlusion, unchanged in the interval. Left internal carotid artery: Mild calcified plaque through the cavernous portion of the left internal carotid artery with less than 50% diameter stenosis. No aneurysm. Left anterior cerebral artery: Unremarkable. No occlusion or significant stenosis. No aneurysm. Left middle cerebral artery: Unremarkable. No occlusion or significant stenosis. No aneurysm. Left posterior cerebral artery: Unremarkable. No occlusion or significant stenosis. No aneurysm. Left vertebral artery: Unremarkable as visualized. Basilar artery: Unremarkable. No occlusion or significant stenosis. No aneurysm. IMPRESSION: Nonvisualization of the distal intracranial portion of the right vertebral artery suggestive of severe stenosis or chronic occlusion, stable in the interval. Remainder of the CT angiogram of the brain is negative with no focal stenosis, occlusion or aneurysm seen. Communications: Call Doctor Stroke Electronically signed by: Gretchen Jaramillo MD 05/31/23 22:39 PM
[2023-05-31] MEDS ORDERED: SODIUM CHLORIDE 1 GM TABLET PO STA (23:39)
[2023-05-31] MEDS ORDERED: NSS + 20MEQ KCL 20 MEQ/1,000 ML BAG IV SCH (23:45)
--- NOTE | 2023-05-31 23:53 | History & Physical Report ---
Date of Service May 31, 2023 Assessment & Plan (1) Chronic hyponatremia: (2) Hypertensive emergency: (3) Stroke-like symptoms: (4) H/O prostate cancer: (5) Alteration in perception: Plan Alteration of perception/fogginess/vague symptoms of disorientation- Symptoms are very similar to presenting symptoms of stroke alert on 05/18- 05/19/2023. Patient also presented with dysarthria at that time. He was on aspirin 81 mg daily, had the addition of clopidogrel 75 mg daily and was discharged at that time. During that admission, patient had CT head that was negative, CTA head negative, CTA neck was negative. Brain MRI showed chronic changes Workup this evaluation included a CT head which showed chronic changes, CTA of the head showed nonvisualization of the distal intracranial portion of the right vertebral artery suggestive of severe stenosis or chronic occlusion. CTA neck was negative. Would ask radiology to compare CTA head from 05/18 to the CTA head from today, regarding potential issue with the right vertebral artery on today's reading that was not present on the reading of 05/18 Continue aspirin 81 mg daily and clopidogrel 75 mg daily Symptoms could be related to issues with hyponatremia, even though it is noted is a chronic issue Volatile blood pressure- Continue lisinopril 20 mg daily Hydralazine 5 mg IV every 4 hours as needed systolic blood pressure above 160 Patient appears to very sensitive to low doses of IV medications Question autonomic dysregulation Ask nephrology for their opinion Hyponatremia- Sodium 128, urine osmolality 603 and serum osmolality 291 Patient did take his usual dosing of sodium chloride 2 tablets the morning of admission Will give an additional 2 g of sodium tablets now, and increase dosing to 2 g p.o. twice daily Patient admits to drinking too much fluids, and denies alcohol use Fluid restriction of 1500 mL Consult nephrology, follows in outpatient setting with Dr. Enciso Follow serial laboratories in a.m. It may be worth normalizing his sodium levels to see how they affect his symptomatology History of Present Illness Chief Complaint: The patient presented to the emergency department with complaint of around 4 PM this afternoon, feeling foggy and disoriented, and blood pressure was significantly elevated at home, similar to presentation on 05/18/2023 where he was evaluated as a stroke alert Primary Care Provider: Alesha Gonsalez MD The patient is a 78-year-old male with past medical history including prostate cancer, scoliosis, lumbar degenerative disc disease, hyperlipidemia, right vertebral artery stenosis, hypertension, insomnia and admission from 05/18- 05/19/2023 for stroke alert due to dysarthria. During that admission, patient was continued on aspirin, and then had the addition of clopidogrel prior to discharge. He reports that he has been doing well until 4:00 this afternoon when his symptoms returned as above. Allergies Allergy/AdvReac Type Severity Reaction Status Date / Time zolpidem AdvReac Intermediate DELIRIUM Verified 05/25/23 11:04 Home Medications Medication Instructions Recorded Confirmed Type calcium carb 300 mg-D3 20 mcg-mag 1 tab PO QAM 08/04/18 05/31/23 History ox 25 mg-copy preparer 0.5 [id number] tablet (Caltrate-D3 Plus Minerals) magnesium oxide 400 mg PO QAM 08/04/18 05/31/23 History multivitamin 1 tab PO QAM 08/04/18 05/31/23 History cyanocobalamin (vitamin B-12) 1,000 mcg PO Q2D 07/30/19 05/31/23 History 1,000 mcg tablet cetirizine 10 mg tablet (Allergy 10 mg PO DAILY PRN Allergy Symptoms 05/22/21 05/31/23 History Relief (cetirizine)) aspirin 81 mg tablet,delayed 81 mg PO DAILY #30 tabs 06/15/21 05/31/23 Rx release (Adult Aspirin Regimen) fluticasone propionate 50 1 spray intranasal BID #16 grams 07/09/22 05/31/23 Rx mcg/actuation nasal spray,suspension (Flonase Allergy Relief) lisinopril 20 mg tablet 20 mg PO QAM #90 tabs 09/30/22 05/31/23 Rx acetaminophen 500 mg tablet 1,000 mg (2 x 500 mg) PO BIDWMEAL 04/05/23 05/31/23 Rx (Tylenol Extra Strength) PRN fever #20 tabs temazepam 30 mg capsule 30 mg PO HS PRN Sleep #30 caps 04/28/23 05/31/23 Rx amoxicillin 500 mg tablet 2,000 mg PO DIRECTED PRN PRIOR 05/18/23 05/31/23 History TO DENTAL PROCEDURES clopidogrel 75 mg tablet 75 mg PO QAM #30 tabs 05/25/23 05/31/23 Rx atorvastatin 20 mg tablet 20 mg PO DAILY #90 tabs 05/30/23 05/31/23 Rx Past Med/Surg History Medical History (Updated 06/01/23 @ 06:21 by Andrzej Rocha MD) Alteration in perception Sleep disturbance H/O: CVA (cerebrovascular accident) Hyponatremia Dental infection Sinus infection Sinus infection Acute medical illness Sinus congestion Right-sided lacunar infarction CVA (cerebral vascular accident) Lab test negative for COVID-19 virus Pneumonitis Sinus pressure Right shoulder pain Left femoral hernia without obstruction or gangrene Scoliosis Osteopenia Osteoarthritis of first carpometacarpal joint, unspecified Multiple pulmonary nodules Knee pain, bilateral Insomnia Inguinal hernia Hypertension Disc degeneration, lumbar Anemia, mild Surgical History S/P genital surgery (~2003) Penile prosthetic device S/P shoulder surgery S/P hernia repair H/O radical retropubic prostatectomy History of herniorrhaphy Family History Father , age 89 Alzheimer disease Coronary heart disease [place]' lung Paget's disease Patient Mother , age 85 Coronary heart disease Stroke multiple first on at age 78 Hypertension Denies family history of Prostate cancer Social History Smoking Status: Never smoker Second Hand Exposure: No; Do You Dip or Chew Tobacco: No; Hx Alcohol Use: No Hx Substance Use: No Preferred Language: Lao Communication Ability: Effective Visual Impairment: No Limitations Hearing Ability: Normal 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 Beliefs That Will Affect Care: None marital status: Current Living Situation: Spouse current occupational status: retired current occupation: [employer] Other Information That Helps Us Care for You: No Feels Safe at Home: Yes Safety Concerns: Feels Safe At This Time Physical Activity Frequency: Daily Physical Activity Frequency Comment: hike [place] 5-6 times a week Seatbelt Use: always Assistive Devices: Cane Review of Systems Review of Systems: The patient denies chest pain, palpitations, shortness of breath, dyspnea on exertion, cough, lower extremity swelling, sore throat, fevers, chills, sweats, nausea, vomiting, diarrhea , constipation, abdominal pain, pelvic pain, blood in urine or stool, dysuria, urinary frequency or urgency, loss of consciousness, rash, abnormal bruising or bleeding, focal weakness, numbness or tingling in arms or legs, generalized arthralgias or myalgias, back or neck pain, or night sweats. The review of systems is otherwise negative other than for that already noted above, and at least 10 systems have been reviewed. Physical Exam Physical Exam: The patient is awake, alert and oriented 3, well developed and well nourished, normocephalic and atraumatic, lying in bed and in no acute distress. HEENT--PERRL, EOMI, mucous membranes and oropharynx mildly dry. Neck--supple. No JVD. No bruits. Thyroid normal, trachea midline, no adenopathy. Heart--normal S1 and S2. No murmurs, rubs or gallops. Lungs--clear bilaterally, no respiratory distress, no accessory muscle use. Abdomen--normal bowel sounds and soft. Nontender. Nondistended, no hernias or masses, no organomegaly. Extremities--no cyanosis or clubbing. No edema. Dermatologic--normal skin turgor, normal color, no abnormal lymph nodes, no rash. Neurologic--cranial nerves II through XII grossly intact. Rheumatologic--limited exam due to generalized fatigue and weakness Psychiatric--normal affect. Results & Data Results & Data Vital Signs (Past 12 Hours) Vital Signs Temp Pulse Pulse Resp BP BP Pulse Ox 05/31/23 23:35 97 05/31/23 23:30 64 15 181/108 H 98 05/31/23 23:00 64 19 171/95 H 96 05/31/23 22:30 174/98 H 96 05/31/23 22:19 67 15 161/108 H 95 05/31/23 22:15 69 16 148/85 H 95 05/31/23 22:00 70 15 142/96 H 94 05/31/23 21:55 68 14 149/91 H 93 05/31/23 21:55 149/81 H 05/31/23 21:50 68 16 148/88 H 92 05/31/23 21:45 71 15 131/82 94 05/31/23 21:40 70 15 149/94 H 95 05/31/23 21:39 62 131/82 05/31/23 21:38 133/80 05/31/23 21:35 69 18 133/80 98 05/31/23 21:30 69 16 139/85 99 05/31/23 21:28 73 16 122/81 99 05/31/23 21:28 73 19 122/81 98 05/31/23 21:27 69 98 05/31/23 21:26 76 18 163/108 H 97 05/31/23 21:24 91 H 17 163/108 H 97 05/31/23 21:24 90 163/108 H 05/31/23 21:20 96 H 20 194/123 H 97 05/31/23 21:07 94 H 20 199/137 H 98 05/31/23 21:04 94 H 05/31/23 20:53 36.7 C 76 18 234/122 H 97 O2 Del Method 05/31/23 23:35 Room Air 05/31/23 23:30 Room Air 05/31/23 23:00 Room Air 05/31/23 22:30 05/31/23 22:19 05/31/23 22:15 05/31/23 22:00 05/31/23 21:55 05/31/23 21:55 05/31/23 21:50 05/31/23 21:45 05/31/23 21:40 05/31/23 21:39 05/31/23 21:38 05/31/23 21:35 05/31/23 21:30 05/31/23 21:28 05/31/23 21:28 Room Air 05/31/23 21:27 Room Air 05/31/23 21:26 Room Air 05/31/23 21:24 05/31/23 21:24 05/31/23 21:20 05/31/23 21:07 05/31/23 21:04 05/31/23 20:53 Room Air Laboratory Results Laboratory Results WBC 7.63 K/ul (4.8-10.8) 05/31/23 20:14 RBC 4.38 M/uL (4.70-6.10) L 05/31/23 20:14 Hgb 14.0 g/dl (14.0-18.0) 05/31/23 20:14 POC Hgb 15.0 g/dl (14.0-18.0) 05/31/23 21:08 Hct 41.7 % (42.0-52.0) L 05/31/23 20:14 POC Hct 44 % (42-52) 05/31/23 21:08 MCV 95.2 fL (80.0-100.0) 05/31/23 20:14 MCH 32.0 pg (25.0-34.0) 05/31/23 20:14 MCHC 33.6 g/dL (32.0-36.0) 05/31/23 20:14 RDW Std Deviation 41.2 fL (36.4-46.3) 05/31/23 20:14 RDW Coeff of [place] 11.8 % (11.5-14.5) 05/31/23 20:14 Plt Count 296 K/uL (130-400) 05/31/23 20:14 MPV 9.8 fL (9.4-12.4) 05/31/23 20:14 PT 11.0 Seconds (9.0-12.0) 05/31/23 20:14 INR 1.0 (0.9-1.1) 05/31/23 20:14 APTT 29 Seconds (21-31) 05/31/23 20:14 PTT Ratio 1.0 05/31/23 20:14 POC Sodium 129 mmol/L (135-144) L 05/31/23 21:08 Sodium 128 mmol/L (136-145) L 05/31/23 20:14 POC Potassium 4.0 mmol/L (3.3-5.0) 05/31/23 21:08 Potassium 4.0 mmol/L (3.5-5.1) 05/31/23 20:14 POC Chloride 95 mmol/L (101-112) L 05/31/23 21:08 Chloride 93 mmol/L (98-107) L 05/31/23 20:14 Carbon Dioxide 28 mmol/L (21-32) 05/31/23 20:14 POC Total CO2 27 mmol/L (24-31) 05/31/23 21:08 Anion Gap 7 (3-11) 05/31/23 20:14 POC Anion Gap 13.0 mmol/L (16-25) L 05/31/23 21:08 POC BUN 46 mg/dl (7-18) H 05/31/23 21:08 BUN 52 mg/dl (6-23) H 05/31/23 20:14 Creatinine 0.86 mg/dl (0.6-1.4) 05/31/23 20:14 POC Creatinine 1.0 mg/dl (0.6-1.3) 05/31/23 21:08 Est Cr Clr Drug Dosing 59.1 ml/min 05/31/23 20:14 Est GFR ( Amer) 95.6 ml/min 05/31/23 20:14 Est GFR (Non-Af Amer) 82.5 ml/min 05/31/23 20:14 BUN/Creatinine Ratio 60.5 (10-20) H 05/31/23 20:14 Glucose 166 mg/dl (70-99(Fasting)) H 05/31/23 20:14 POC Glucose (other) 171 mg/dl (70-99) H 05/31/23 21:08 Osmolality 291 mOsm/kg (280-300) 05/31/23 21:04 Calcium 9.3 mg/dl (8.6-10.3) 05/31/23 20:14 POC Ioniz Calcium [place] 1.15 mmol/l (1.12-1.32) 05/31/23 21:08 Magnesium 1.9 mg/dl (1.7-2.4) 05/31/23 20:14 Total Bilirubin 0.5 mg/dl (0.2-1.0) 05/31/23 20:14 AST 29 U/L (13-39) 05/31/23 20:14 ALT 26 U/L (7-52) 05/31/23 20:14 Alkaline Phosphatase 87 U/L (34-104) 05/31/23 20:14 Troponin I High Sens 9.6 pg/ml (0-20) 05/31/23 22:32 Total Protein 7.5 gm/dl (6.0-8.3) 05/31/23 20:14 Albumin 4.3 gm/dl (3.4-5.0) 05/31/23 20:14 Globulin 3.2 gm/dl (2.5-4.0) 05/31/23 20:14 Albumin/Globulin Ratio 1.3 (0.9-2) 05/31/23 20:14 Urine Osmolality 603 mOsm/kg (500-800) 06/01/23 00:16 Ur Random Sodium 88 mmol/L 06/01/23 00:[address] 05/31/23 21:05 CR Exam(s): CT HEAD Without Contrast EXAM: CT Head Without Intravenous Contrast CLINICAL HISTORY: Reason for exam: Neuro deficit, acute, stroke suspected. TECHNIQUE: Axial computed tomography images of the head/brain without intravenous contrast. CTDI is 45.76 mGy and DLP is 774.27 mGy-cm. Automated exposure control was utilized for the study. A dose lowering technique was utilized adhering to the principles of ALARA. COMPARISON: 05/18/2023. FINDINGS: Brain: Mild to moderate generalized brain atrophy. Decreased attenuation within the deep white matter compatible with microangiopathic white matter disease. No hemorrhage. Ventricles: Unremarkable. No ventriculomegaly. Bones/joints: Unremarkable. No acute fracture. Soft tissues: Unremarkable. Sinuses: Unremarkable as visualized. No acute sinusitis. Mastoid air cells: Unremarkable as visualized. No mastoid effusion. IMPRESSION: Chronic changes as described with no acute intracranial hemorrhage or space-occupying lesion. Communications: Call Doctor Stroke Electronically signed by: Gretchen Jaramillo MD 05/31/23 21:58 PM Head CTA 05/31/23 21:09 CR Exam(s): CTA HEAD With Contrast IV Amt: 119 ml optiray 320 EXAM: CT Angiography Head With Intravenous Contrast CLINICAL HISTORY: Reason for exam: HTN, RAZO, shaky. TECHNIQUE: Axial computed tomographic angiography images of the head with intravenous contrast. CTDI is 45.76 mGy and DLP is 774.27 mGy-cm. Automated exposure control was utilized for the study. A dose lowering technique was utilized adhering to the principles of ALARA. MIP reconstructed images were created and reviewed. CONTRAST: Patient received 119 ml optiray 320 of IV contrast COMPARISON: 05/18/2023. FINDINGS: Right internal carotid artery: Mild calcified plaque through the cavernous portion of the right internal carotid artery with less than 50% diameter stenosis. No aneurysm. Right anterior cerebral artery: Unremarkable. No occlusion or significant stenosis. No aneurysm. Right middle cerebral artery: Unremarkable. No occlusion or significant stenosis. No aneurysm. Right posterior cerebral artery: Unremarkable. No occlusion or significant stenosis. No aneurysm. Right vertebral artery: The distal intracranial portion of the right vertebral artery is not visualized, which may indicate sequela of severe stenosis or chronic/old occlusion, unchanged in the interval. Left internal carotid artery: Mild calcified plaque through the cavernous portion of the left internal carotid artery with less than 50% diameter stenosis. No aneurysm. Left anterior cerebral artery: Unremarkable. No occlusion or significant stenosis. No aneurysm. Left middle cerebral artery: Unremarkable. No occlusion or significant stenosis. No aneurysm. Left posterior cerebral artery: Unremarkable. No occlusion or significant stenosis. No aneurysm. Left vertebral artery: Unremarkable as visualized. Basilar artery: Unremarkable. No occlusion or significant stenosis. No aneurysm. IMPRESSION: Nonvisualization of the distal intracranial portion of the right vertebral artery suggestive of severe stenosis or chronic occlusion, stable in the interval. Remainder of the CT angiogram of the brain is negative with no focal stenosis, occlusion or aneurysm seen. Communications: Call Doctor Stroke Electronically signed by: Gretchen Jaramillo MD 05/31/23 22:39 PM Neck CTA 05/31/23 21:09 CR Exam(s): CTA NECK With Contrast IV Amt: 119 ml optiray 320 EXAM: CT Angiography Neck With Intravenous Contrast CLINICAL HISTORY: Reason for exam: HTN, RAZO, shaky. TECHNIQUE: Routine carotid CT angiography protocol was performed with intravenous contrast. NASCET criteria using the distal ICAs for comparison were used for evaluation of stenoses. CTDI is 8.98 mGy and DLP is 350.47 mGy-cm. Automated exposure control was utilized for the study. A dose lowering technique was utilized adhering to the principles of ALARA. MIP reconstructed images were created and reviewed. CONTRAST: Patient received 119 ml optiray 320 of IV contrast COMPARISON: 05/18/2023. FINDINGS: VASCULATURE: Right common carotid artery: Unremarkable. No occlusion or significant stenosis. No dissection. Right internal carotid artery: Minimal calcified plaque of the right carotid bulb. Extracranial segment is patent with no occlusion or significant stenosis. No dissection. Right external carotid artery: Mild calcified plaque at the origin of the right external carotid artery luminal stenosis. Right vertebral artery: Unremarkable. No occlusion or significant stenosis. No dissection. Left common carotid artery: Unremarkable. No occlusion or significant stenosis. No dissection. Left internal carotid artery: Minimal calcified plaque at the left carotid bulb. Mild calcified plaque at the origin of the left internal carotid artery without stenosis. No dissection. Left external carotid artery: Unremarkable. No occlusion. Left vertebral artery: Unremarkable. No occlusion or significant stenosis. No dissection. Aorta: Mild atherosclerotic disease throughout the aortic arch. NECK: Bones/joints: Unremarkable. No acute fracture. Soft tissues: Unremarkable. Lung apices: Lung apices reveal subpleural cystic and interstitial thickening with honeycombing pattern concerning for pulmonary fibrosis. There is nodularity involving the right upper lobe measuring 1.1 cm, cannot exclude nodule/neoplasm. Pleural space: There is mild biapical pleural thickening. CAROTID STENOSIS REFERENCE USING NASCET CRITERIA: % ICA stenosis = (1 - narrowest ICA diameter/diameter of distal cervical ICA) x 100. Mild - <50% stenosis. Moderate - 50-69% stenosis. Severe - 70-94% stenosis. Near occlusion - 95-99% stenosis. Occluded - 100% stenosis. IMPRESSION: Mild calcified atherosclerotic disease as described otherwise no stenosis, occlusion or dissection involving the bilateral carotid and vertebral arteries. Communications: Call Doctor Stroke Electronically signed by: Gretchen Jaramillo MD 05/31/23 22:02 PM Code Status & VTE Plan Code Status Full code VTE Prophylaxis Plan VTE Prophylaxis will be ordered: No PG Care Time/CCT Total # of Minutes Spent Total Time Spent with Patient: Total time spent is greater than 50% in coordination of care (as documented) at patient's floor/unit and/or counseling patient: Coding Level of Care Code 90436 INT INP/OBS CARE 3/75MIN Diagnoses Chronic hyponatremia E87.1 Hypertensive emergency I16.1 Stroke-like symptoms R29.90 H/O prostate cancer Z85.46 Alteration in perception R44.9
[2023-05-31] MEDS ORDERED: hydrALAZINE HCL 20 MG/ML VIAL IV PRN (23:55)
[2023-06-01] MEDS ORDERED: LABETALOL HCL IV 5 MG/ML 20ML IV ONE (00:11)
[2023-06-01] MEDS ORDERED: ONDANSETRON INJ 2 MG/ML 2 ML VIAL IV PRN (02:10)
[2023-06-01] MEDS ORDERED: NON-FORMULARY MEDICATION (Amoxicillin 500 mg tablet) PO PRN (02:10)
[2023-06-01] MEDS ORDERED: TEMAZEPAM 15 MG CAPSULE PO PRN (02:10)
[2023-06-01] MEDS ORDERED: CETIRIZINE HCL 10 MG TABLET PO PRN (02:10)
--- NOTE | 2023-06-01 07:14 | XRay Report ---
XR chest 1V portable CLINICAL HISTORY: stroke alert COMPARISON STUDY: Chest CT September 09, 2022. Chest radiograph May 18, 2023. FINDINGS: Elevation of the left hemidiaphragm is unchanged. Left shoulder arthroplasty is incidentall y noted. There is no pneumothorax or pleural effusion. Upper lobe predominant interstitial thickening is chronic. Cardiomediastinal silhouette is stable. There is no evidence for pulmonary edema. IMPRESSION: No acute cardiopulmonary findings. No change in appearance of the chest. ACT 112: Negative or not required by law. Electronically signed by: Farhat Bowie M.D. 06/01/2023 7:12 AM
[2023-06-01 08:20] LABS: Basophils # (auto) 0.06 K/uL (0.00-0.20); Basophils % (auto) 1.2 %; Eosinophils # (auto) 0.51 K/uL (0.00-0.50); Eosinophils % (auto) 10.1 %; Hematocrit (blood only) 35.6 % (42.0-52.0); Hemoglobin 12.2 g/dl (14.0-18.0); Immature Granulocytes # (auto) 0.02 K/uL (0.01-0.20); Immature Granulocytes % (auto) 0.4 %; Lymphocytes # (auto) 1.48 K/uL (1.20-3.40); Lymphocytes % (auto) 29.2 %; Mean Corpuscular Hemoglobin 32.1 pg (25.0-34.0); Mean Corpuscular Hgb Conc 34.3 g/dL (32.0-36.0); Mean Corpuscular Volume 93.7 fL (80.0-100.0); Monocytes # (auto) 0.75 K/uL (0.11-0.59); Monocytes % (auto) 14.8 %; Neutrophils # (auto) 2.24 K/uL (1.40-6.50); Neutrophils % (auto) 44.3 %; Platelet Count 223 K/uL (130-400); RDW Coefficient of Variation 11.9 % (11.5-14.5); RDW Standard Deviation 41.3 fL (36.4-46.3); White Blood Count 5.06 K/ul (4.8-10.8)
[2023-06-01] MEDS: ASPIRIN 81 MG ECTAB PO SCH (08:24)
[2023-06-01] MEDS: CEROVITE ADV FORMULA TAB PO SCH (08:24)
[2023-06-01] MEDS: CYANOCOBALAMIN (B-12) 500 MCG TABLET PO SCH (08:25)
[2023-06-01] MEDS: SODIUM CHLORIDE 1 GM TABLET PO SCH ×2 (08:25→19:42)
[2023-06-01] MEDS: MULTIVITAMIN TAB PO SCH (08:26)
[2023-06-01] MEDS: lisinopril 20 MG TAB PO SCH (08:27)
[2023-06-01] MEDS: CLOPIDOGREL BISULFATE 75 MG TAB PO SCH (08:27)
[2023-06-01] MEDS: MAGNESIUM OXIDE 400 MG TAB PO SCH (08:27)
[2023-06-01] MEDS: FLUTICASONE PROPIONATE NA SPR 16 GM BTL NAE SCH ×2 (08:28→19:42)
[2023-06-01] MEDS: ATORVASTATIN 20 MG TAB PO SCH (08:28)
[2023-06-01 08:29] LABS: Albumin Globulin Ratio 1.4 (0.9-2); Albumin Level 3.5 gm/dl (3.4-5.0); BUN Creatinine Ratio 49.2 (10-20); Bilirubin,Total 0.5 mg/dl (0.2-1.0); Calcium 8.7 mg/dl (8.6-10.3); Creatinine Clr Calc Pharmacy 78.6 ml/min; Est GFR (African American) 107.2 ml/min; Est GFR (Non-African American) 92.5 ml/min; Globulin 2.5 gm/dl (2.5-4.0); Magnesium 1.9 mg/dl (1.7-2.4); Phosphorus 2.9 mg/dl (2.5-4.9); Potassium 4.2 mmol/L (3.5-5.1)
--- NOTE | 2023-06-01 09:54 | Neurology Consultation ---
Date of Consultation June 01, 2023 Assessment & Plan (1) Hypertensive emergency: (2) Chronic hyponatremia: History of Present Illness Attending Physician: Gary Puentes MD History of Present Illness HPI: pt with sudden feeling of foggy and confusion last night. pt did notice he was having high BP with SBP in 200s. he was recently seen in hospital for TIA evaluation, negative mri back then. pt did have severe hyponatremia on this admission and persistent HTN emergency. this morning feeling better BP better controlled. admission HPI: The patient presented to the emergency department with complaint of around 4 PM this afternoon, feeling foggy and disoriented, and blood pressure was significantly elevated at home, similar to presentation on 05/18/2023 where he was evaluated as a stroke alert Primary Care Provider: Alesha Gonsalez MD The patient is a 78-year-old male with past medical history including prostate cancer, scoliosis, lumbar degenerative disc disease, hyperlipidemia, right vertebral artery stenosis, hypertension, insomnia and admission from 05/18- 05/19/2023 for stroke alert due to dysarthria. During that admission, patient was continued on aspirin, and then had the addition of clopidogrel prior to discharge. He reports that he has been doing well until 4:00 this afternoon when his symptoms returned as above. Allergies Allergy/AdvReac Type Severity Reaction Status Date / Time zolpidem AdvReac Intermediate DELIRIUM Verified 05/25/23 11:04 Home Medications Medication Instructions Recorded Confirmed Type calcium carb 300 mg-D3 20 mcg-mag 1 tab PO QAM 08/04/18 05/31/23 History ox 25 mg-gyroscopic instrument tester 0.5 [id number] tablet (Caltrate-D3 Plus Minerals) magnesium oxide 400 mg PO QAM 08/04/18 05/31/23 History multivitamin 1 tab PO QAM 08/04/18 05/31/23 History cyanocobalamin (vitamin B-12) 1,000 mcg PO Q2D 07/30/19 05/31/23 History 1,000 mcg tablet cetirizine 10 mg tablet (Allergy 10 mg PO DAILY PRN Allergy Symptoms 05/22/21 05/31/23 History Relief (cetirizine)) aspirin 81 mg tablet,delayed 81 mg PO DAILY #30 tabs 06/15/21 05/31/23 Rx release (Adult Aspirin Regimen) fluticasone propionate 50 1 spray intranasal BID #16 grams 07/09/22 05/31/23 Rx mcg/actuation nasal spray,suspension (Flonase Allergy Relief) lisinopril 20 mg tablet 20 mg PO QAM #90 tabs 09/30/22 05/31/23 Rx acetaminophen 500 mg tablet 1,000 mg (2 x 500 mg) PO BIDWMEAL 04/05/23 05/31/23 Rx (Tylenol Extra Strength) PRN fever #20 tabs temazepam 30 mg capsule 30 mg PO HS PRN Sleep #30 caps 04/28/23 05/31/23 Rx amoxicillin 500 mg tablet 2,000 mg PO DIRECTED PRN PRIOR 05/18/23 05/31/23 History TO DENTAL PROCEDURES clopidogrel 75 mg tablet 75 mg PO QAM #30 tabs 05/25/23 05/31/23 Rx atorvastatin 20 mg tablet 20 mg PO DAILY #90 tabs 05/30/23 05/31/23 Rx Patient History Medical History (Updated 06/01/23 @ 06:21 by Andrzej Rocha MD) Alteration in perception Sleep disturbance H/O: CVA (cerebrovascular accident) Hyponatremia Dental infection Sinus infection Sinus infection Acute medical illness Sinus congestion Right-sided lacunar infarction CVA (cerebral vascular accident) Lab test negative for COVID-19 virus Pneumonitis Sinus pressure Right shoulder pain Left femoral hernia without obstruction or gangrene Scoliosis Osteopenia Osteoarthritis of first carpometacarpal joint, unspecified Multiple pulmonary nodules Knee pain, bilateral Insomnia Inguinal hernia Hypertension Disc degeneration, lumbar Anemia, mild Surgical History S/P genital surgery (~2003) Penile prosthetic device S/P shoulder surgery S/P hernia repair H/O radical retropubic prostatectomy History of herniorrhaphy Family History Father , age 89 Alzheimer disease Coronary heart disease [place]' lung Paget's disease Patient Mother , age 85 Coronary heart disease Stroke multiple first on at age 78 Hypertension Denies family history of Prostate cancer Social History Smoking Status: Never smoker Second Hand Exposure: No; Do You Dip or Chew Tobacco: No; Hx Alcohol Use: No Hx Substance Use: No Preferred Language: [place] Citizen Communication Ability: Effective Visual Impairment: No Limitations Hearing Ability: Normal 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 Beliefs That Will Affect Care: None marital status: Current Living Situation: Spouse current occupational status: retired current occupation: [employer] Other Information That Helps Us Care for You: No Feels Safe at Home: Yes Safety Concerns: Feels Safe At This Time Physical Activity Frequency: Daily Physical Activity Frequency Comment: hike [place] 5-6 times a week Seatbelt Use: always Assistive Devices: Cane Exam (Neuro) Physical Exam: HEENT: normocephalic Neuro: Mental: AOx4, fluent speech, normal comprehension, no apraxia, no L/R confusion, no neglect CN: PERRL, Full EOM, symmetric face, intact sensation t/o face, midline T/U/P, 5/5 SCM/traps. Motor: No abnormal movements, normal tone and bulk, 5/5 t/o bilaterally Sens: intact to touch b/l grossly Coord: intact FNT b/l DTR: 2+ sym b/l Gait: intact grossly Impression: 78 yo male HTN emergency and hyponatremia with resolved confusion. pt clinically back to baseline and nonfocal neuro exam. Recommendations: do recommend repeat stroke protocol MRI brain without JEREMIAH given very high BP and stroke risk factors. if mri negative, no need for further stroke work up. no need for permissive HTN at this point. slow correction of hyponatremia. continue ASA/plavix. Chart reviewed I have spent more than 50% educating patient about potential diagnosis and neurological evaluation and coordinating care with patient's treatment team. Total time spent (including chart review and coordination of care): 70 min (this includes chart review). Results & Data Vital Signs (Past 12 Hours) Vital Signs Temp Pulse Pulse Resp BP BP Pulse Ox 06/01/23 07:30 06/01/23 07:30 36.5 C 56 L 19 141/81 H 99 06/01/23 02:44 67 06/01/23 02:40 36.5 C 58 L 20 153/89 H 95 06/01/23 02:19 06/01/23 02:12 36.5 C 73 18 198/109 H 97 06/01/23 01:30 60 14 139/83 95 06/01/23 01:01 69 06/01/23 01:00 70 16 158/95 H 96 06/01/23 00:30 67 14 152/90 H 96 06/01/23 00:00 66 13 160/91 H 96 05/31/23 23:35 97 05/31/23 23:30 64 15 181/108 H 98 05/31/23 23:00 64 19 171/95 H 96 05/31/23 22:30 174/98 H 96 05/31/23 22:19 67 15 161/108 H 95 05/31/23 22:15 69 16 148/85 H 95 05/31/23 22:00 70 15 142/96 H 94 05/31/23 21:55 68 14 149/91 H 93 05/31/23 21:55 149/81 H O2 Del Method 06/01/23 07:30 Room Air 06/01/23 07:30 Room Air 06/01/23 02:44 06/01/23 02:40 Room Air 06/01/23 02:19 Room Air 06/01/23 02:12 Room Air 06/01/23 01:30 Room Air 06/01/23 01:01 06/01/23 01:00 Room Air 06/01/23 00:30 Room Air 06/01/23 00:00 Room Air 05/31/23 23:35 Room Air 05/31/23 23:30 Room Air 05/31/23 23:00 Room Air 05/31/23 22:30 05/31/23 22:19 05/31/23 22:15 05/31/23 22:00 05/31/23 21:55 05/31/23 21:55 PG Care Time/CCT Total # of Minutes Spent Total Time Spent with Patient: Total time spent is greater than 50% in coordination of care (as documented) at patient's floor/unit and/or counseling patient: Coding Level of Care Code 67282 IN/OBS CONSULT LVL 4,60M Diagnoses Hypertensive emergency I16.1 Chronic hyponatremia E87.1
[2023-06-01] MEDS: FUROSEMIDE 20 MG TAB PO SCH (12:03)
--- NOTE | 2023-06-01 13:17 | Nephrology Consultation ---
Date of Consultation June 01, 2023 Assessment & Plan (1) Hypertensive urgency: * BP control in outpatient setting has been variable on single agent. Clinically doubt IDALIA as kidney function has been stable while on ACEi therapy. Would only pursue secondary causes for HTN if BP is difficult control while on maximum doses of 3 agents, one of which is a diuretic * Continue Lisinopril 20 mg daily, IV hydralazine as needed * Add Furosemide 20 mg qAM and monitor response * If BP remains elevated, will consider addition of long acting CCB * Await Neurology input re: stenosis/obstruction R vertebral artery (2) Hyponatremia: * Probable SIADH * Will order TSH, CXR * Continue NaCl 1,000 mg po BID * Will add Furosemide 20 mg qAM * Monitor serum Na, Uosm History of Present Illness Reason for Consultation: Hypertensive urgency, hyponatremia Attending Physician: Gary Puentes MD History of Present Illness Mr. Ahuja is a 78 year old white male who is seen at the request of Dr. Rocha for evaluation of hypertensive urgency, hyponatremia. Information for the HPI is obtained from direct patient interview and review of the EMR. HPI is summarized as follows: Mr. Ahuja's medical history is significant for prostate cancer, lumbar degenerative disc disease, hyperlipidemia and R vertebral artery stenosis. He has a h/o HTN and SIADH that has been managed by Dr. Enciso. His outpatient medical regimen has included Lisinopril 20 mg daily, NaCl 1000 mg BID, urea-Na PRN. Outpatient blood pressures have been quite variable. Serum sodium has ranged 126-130 mmol/L. Mr. Ahuja was last hospitalized 05/18/23-05/19/23 due to hypertensive urgency and dysarthria. Stroke evaluation was negative. Mr. Ahuja presented again last evening with disorientation, SBP > 200 mm Hg, serum Na 128 mmol/L, Uosm 603. Head CT revealed chronic changes, CTA revealed a new finding of occlusion/no nvisualization of R verterbral artery. Lisinopril has been continued and IV hydralazine added for BP management. Mr. Ahuja reports adherence to his prescribed medications. He denies the use of tobacco, alcohol, cough/cold remedies or herbal supplements. He currently denies RAZO, visual change, angina, dyspnea or uremic symptoms Allergies Allergy/AdvReac Type Severity Reaction Status Date / Time zolpidem AdvReac Intermediate DELIRIUM Verified 05/25/23 11:04 Home Medications Medication Instructions Recorded Confirmed Type calcium carb 300 mg-D3 20 mcg-mag 1 tab PO QAM 08/04/18 05/31/23 History ox 25 mg-copper miner blasting 0.5 [id number] tablet (Caltrate-D3 Plus Minerals) magnesium oxide 400 mg PO QAM 08/04/18 05/31/23 History multivitamin 1 tab PO QAM 08/04/18 05/31/23 History cyanocobalamin (vitamin B-12) 1,000 mcg PO Q2D 07/30/19 05/31/23 History 1,000 mcg tablet cetirizine 10 mg tablet (Allergy 10 mg PO DAILY PRN Allergy Symptoms 05/22/21 05/31/23 History Relief (cetirizine)) aspirin 81 mg tablet,delayed 81 mg PO DAILY #30 tabs 06/15/21 05/31/23 Rx release (Adult Aspirin Regimen) fluticasone propionate 50 1 spray intranasal BID #16 grams 07/09/22 05/31/23 Rx mcg/actuation nasal spray,suspension (Flonase Allergy Relief) lisinopril 20 mg tablet 20 mg PO QAM #90 tabs 09/30/22 05/31/23 Rx acetaminophen 500 mg tablet 1,000 mg (2 x 500 mg) PO BIDWMEAL 04/05/23 05/31/23 Rx (Tylenol Extra Strength) PRN fever #20 tabs temazepam 30 mg capsule 30 mg PO HS PRN Sleep #30 caps 04/28/23 05/31/23 Rx amoxicillin 500 mg tablet 2,000 mg PO DIRECTED PRN PRIOR 05/18/23 05/31/23 History TO DENTAL PROCEDURES clopidogrel 75 mg tablet 75 mg PO QAM #30 tabs 05/25/23 05/31/23 Rx atorvastatin 20 mg tablet 20 mg PO DAILY #90 tabs 05/30/23 05/31/23 Rx Patient History Medical History (Updated 06/01/23 @ 13:13 by Wade Sanchez MD) Hyponatremia Alteration in perception Sleep disturbance H/O: CVA (cerebrovascular accident) Dental infection Sinus infection Sinus infection Acute medical illness Sinus congestion Right-sided lacunar infarction CVA (cerebral vascular accident) Lab test negative for COVID-19 virus Pneumonitis Sinus pressure Right shoulder pain Left femoral hernia without obstruction or gangrene Scoliosis Osteopenia Osteoarthritis of first carpometacarpal joint, unspecified Multiple pulmonary nodules Knee pain, bilateral Insomnia Inguinal hernia Hypertension Disc degeneration, lumbar Anemia, mild Surgical History S/P genital surgery (~2003) Penile prosthetic device S/P shoulder surgery S/P hernia repair H/O radical retropubic prostatectomy History of herniorrhaphy Family History Father , age 89 Alzheimer disease Coronary heart disease Canyon' lung Paget's disease Patient Mother , age 85 Coronary heart disease Stroke multiple first on at age 78 Hypertension Denies family history of Prostate cancer Social History Smoking Status: Never smoker Second Hand Exposure: No; Do You Dip or Chew Tobacco: No; Hx Alcohol Use: No Hx Substance Use: No Preferred Language: Albanian Communication Ability: Effective Visual Impairment: No Limitations Hearing Ability: Normal Gym Attendant Required: No Beliefs That Will Affect Care: None marital status: Current Living Situation: Spouse current occupational status: retired current occupation: [employer] Feels Safe at Home: Yes Physical Activity Frequency: Daily Physical Activity Frequency Comment: vee Concepcion 5-6 times a week Seatbelt Use: always Assistive Devices: Cane Review of Systems Constitutional: no fever Eyes: no problem reported Ear, Nose, Mouth, Throat: no problem reported Respiratory: no cough and no dyspnea Cardiovascular: no chest pain Gastrointestinal: no abdominal pain, no nausea, no vomiting and no diarrhea/loose stools Genitourinary: no dysuria or no hematuria Integumentary: no rash Neurologic: no syncope and no headache(s) Physical Exam Constitutional: not in distress Eyes: PERRL, conjunctivae normal, anicteric sclerae ENMT: external ear and nose normal, oropharynx normal Neck: trachea midline, no thyromegaly Respiratory: normal respiratory effort, lungs clear to auscultation Cardiovascular: RRR, no murmur, no edema Gastrointestinal (Abdomen): normal bowel sounds, soft, nontender, no hepatosplenomegaly Musculoskeletal: Extremities: no cyanosis and no clubbing Skin: no rashes, warm and dry Neurologic: Speech / Cognition: normal speech and normal cognition Psychiatric: Affect: euthymic affect Results & Data Vital Signs (Past 12 Hours) Vital Signs Temp Pulse Pulse Resp BP BP Pulse Ox 06/01/23 11:06 36.5 C 55 L 19 132/80 99 06/01/23 08:00 58 L 06/01/23 07:30 06/01/23 07:30 36.5 C 56 L 19 141/81 H 99 06/01/23 02:44 67 06/01/23 02:40 36.5 C 58 L 20 153/89 H 95 06/01/23 02:19 06/01/23 02:12 36.5 C 73 18 198/109 H 97 06/01/23 01:30 60 14 139/83 95 06/01/23 01:01 69 06/01/23 01:00 70 16 158/95 H 96 O2 Del Method 06/01/23 11:06 Room Air 06/01/23 08:00 06/01/23 07:30 Room Air 06/01/23 07:30 Room Air 06/01/23 02:44 06/01/23 02:40 Room Air 06/01/23 02:19 Room Air 06/01/23 02:12 Room Air 06/01/23 01:30 Room Air 06/01/23 01:01 06/01/23 01:00 Room Air Laboratory Results Laboratory Results WBC 5.06 K/ul (4.8-10.8) 06/01/23 07:23 RBC 3.80 M/uL (4.70-6.10) L 06/01/23 07:23 Hgb 12.2 g/dl (14.0-18.0) L 06/01/23 07:23 POC Hgb 15.0 g/dl (14.0-18.0) 05/31/23 21:08 Hct 35.6 % (42.0-52.0) L 06/01/23 07:23 POC Hct 44 % (42-52) 05/31/23 21:08 MCV 93.7 fL (80.0-100.0) 06/01/23 07:23 MCH 32.1 pg (25.0-34.0) 06/01/23 07:23 MCHC 34.3 g/dL (32.0-36.0) 06/01/23 07: RDW Std Deviation 41.3 fL (36.4-46.3) 06/01/23: RDW Coeff of [place] 11.9 % (11.5-14.5) 06/01/23 07: Plt Count 223 K/uL (130-400) 06/01/23 07: MPV 10.0 fL (9.4-12.4) 06/01/23 07: Immature Gran % (Auto) 0.4 % 06/01/23 07: Neut % (Auto) 44.3 % 06/01/23 07: Lymph % (Auto) 29.2 % 06/01/23 07: Craig % (Auto) 14.8 % 06/01/23 07: Eos % (Auto) 10.1 % 06/01/23 07: Baso % (Auto) 1.2 % 06/01/23 07: Neut # (Auto) 2.24 K/uL (1.40-6.50) 06/01/23 07:23 Lymph # (Auto) 1.48 K/uL (1.20-3.40) 06/01/23 07:23 Craig # (Auto) 0.75 K/uL (0.11-0.59) H 06/01/23 07:23 Eos # (Auto) 0.51 K/uL (0.00-0.50) H 06/01/23 07:23 Baso # (Auto) 0.06 K/uL (0.00-0.20) 06/01/23 07:23 Immature Gran # (Auto) 0.02 K/uL (0.01-0.20) 06/01/23 07:23 PT 11.0 Seconds (9.0-12.0) 05/31/23 20:14 INR 1.0 (0.9-1.1) 05/31/23 20:14 APTT 29 Seconds (21-31) 05/31/23 20:14 PTT Ratio 1.0 05/31/23 20:14 POC Sodium 129 mmol/L (135-144) L 05/31/23 21:08 Sodium 134 mmol/L (136-145) L 06/01/23 07:23 POC Potassium 4.0 mmol/L (3.3-5.0) 05/31/23 21:08 Potassium 4.2 mmol/L (3.5-5.1) 06/01/23 07:23 POC Chloride 95 mmol/L (101-112) L 05/31/23 21:08 Chloride 101 mmol/L (98-107) 06/01/23 07:23 Carbon Dioxide 30 mmol/L (21-32) 06/01/23 07:23 POC Total CO2 27 mmol/L (24-31) 05/31/23 21:08 Anion Gap 3 (3-11) 06/01/23 07:23 POC Anion Gap 13.0 mmol/L (16-25) L 05/31/23 21:08 POC BUN 46 mg/dl (7-18) H 05/31/23 21:08 BUN 32 mg/dl (6-23) H D 06/01/23 07:23 Creatinine 0.65 mg/dl (0.6-1.4) 06/01/23 07:23 POC Creatinine 1.0 mg/dl (0.6-1.3) 05/31/23 21:08 Est Cr Clr Drug Dosing 78.6 ml/min 06/01/23 07:23 Est GFR ( Amer) 107.2 ml/min 06/01/23 07:23 Est GFR (Non-Af Amer) 92.5 ml/min 06/01/23 07:23 BUN/Creatinine Ratio 49.2 (10-20) H 06/01/23 07:23 Glucose 98 mg/dl (70-99(Fasting)) 06/01/23 07:23 POC Glucose (other) 171 mg/dl (70-99) H 05/31/23 21:08 Osmolality 291 mOsm/kg (280-300) 05/31/23 21:04 Calcium 8.7 mg/dl (8.6-10.3) 06/01/23 07:23 POC Ioniz Calcium Kasandra 1.15 mmol/l (1.12-1.32) 05/31/23 21:08 Phosphorus 2.9 mg/dl (2.5-4.9) 06/01/23 07:23 Magnesium 1.9 mg/dl (1.7-2.4) 06/01/23 07:23 Total Bilirubin 0.5 mg/dl (0.2-1.0) 06/01/23 07:23 AST 23 U/L (13-39) 06/01/23 07:23 ALT 19 U/L (7-52) 06/01/23 07:23 Alkaline Phosphatase 68 U/L (34-104) 06/01/23 07:23 Troponin I High Sens 9.6 pg/ml (0-20) 05/31/23 22:32 Total Protein 6.0 gm/dl (6.0-8.3) 06/01/23 07:23 Albumin 3.5 gm/dl (3.4-5.0) 06/01/23 07:23 Globulin 2.5 gm/dl (2.5-4.0) 06/01/23 07:23 Albumin/Globulin Ratio 1.4 (0.9-2) 06/01/23 07:23 Urine Osmolality 603 mOsm/kg (500-800) 06/01/23 00:16 Ur Random Sodium 88 mmol/L 06/01/23 00:16 Impressions Chest X-Ray 05/31/23 21:05 XR chest 1V portable CLINICAL HISTORY: stroke alert COMPARISON STUDY: Chest CT September 09, 2022. Chest radiograph May 18, 2023. FINDINGS: Elevation of the left hemidiaphragm is unchanged. Left shoulder arthroplasty is incidentally noted. There is no pneumothorax or pleural effusion. Upper lobe predominant interstitial thickening is chronic. Cardiomediastinal silhouette is stable. There is no evidence for pulmonary edema. IMPRESSION: No acute cardiopulmonary findings. No change in appearance of the chest. ACT 112: Negative or not required by law. Electronically signed by: Farhta Bowie M.D. 06/01/2023 7:[address] 05/31/23 21:05 CR Exam(s): CT HEAD Without Contrast EXAM: CT Head Without Intravenous Contrast CLINICAL HISTORY: Reason for exam: Neuro deficit, acute, stroke suspected. TECHNIQUE: Axial computed tomography images of the head/brain without intravenous contrast. CTDI is 45.76 mGy and DLP is 774.27 mGy-cm. Automated exposure control was utilized for the study. A dose lowering technique was utilized adhering to the principles of ALARA. COMPARISON: 05/18/2023. FINDINGS: Brain: Mild to moderate generalized brain atrophy. Decreased attenuation within the deep white matter compatible with microangiopathic white matter disease. No hemorrhage. Ventricles: Unremarkable. No ventriculomegaly. Bones/joints: Unremarkable. No acute fracture. Soft tissues: Unremarkable. Sinuses: Unremarkable as visualized. No acute sinusitis. Mastoid air cells: Unremarkable as visualized. No mastoid effusion. IMPRESSION: Chronic changes as described with no acute intracranial hemorrhage or space-occupying lesion. Communications: Call Doctor Stroke Electronically signed by: Gretchen Jaramillo MD 05/31/23 21:58 PM Head CTA 05/31/23 21:09 CR Exam(s): CTA HEAD With Contrast IV Amt: 119 ml optiray 320 EXAM: CT Angiography Head With Intravenous Contrast CLINICAL HISTORY: Reason for exam: HTN, RAZO, shaky. TECHNIQUE: Axial computed tomographic angiography images of the head with intravenous contrast. CTDI is 45.76 mGy and DLP is 774.27 mGy-cm. Automated exposure control was utilized for the study. A dose lowering technique was utilized adhering to the principles of ALARA. MIP reconstructed images were created and reviewed. CONTRAST: Patient received 119 ml optiray 320 of IV contrast COMPARISON: 05/18/2023. FINDINGS: Right internal carotid artery: Mild calcified plaque through the cavernous portion of the right internal carotid artery with less than 50% diameter stenosis. No aneurysm. Right anterior cerebral artery: Unremarkable. No occlusion or significant stenosis. No aneurysm. Right middle cerebral artery: Unremarkable. No occlusion or significant stenosis. No aneurysm. Right posterior cerebral artery: Unremarkable. No occlusion or significant stenosis. No aneurysm. Right vertebral artery: The distal intracranial portion of the right vertebral artery is not visualized, which may indicate sequela of severe stenosis or chronic/old occlusion, unchanged in the interval. Left internal carotid artery: Mild calcified plaque through the cavernous portion of the left internal carotid artery with less than 50% diameter stenosis. No aneurysm. Left anterior cerebral artery: Unremarkable. No occlusion or significant stenosis. No aneurysm. Left middle cerebral artery: Unremarkable. No occlusion or significant stenosis. No aneurysm. Left posterior cerebral artery: Unremarkable. No occlusion or significant stenosis. No aneurysm. Left vertebral artery: Unremarkable as visualized. Basilar artery: Unremarkable. No occlusion or significant stenosis. No aneurysm. IMPRESSION: Nonvisualization of the distal intracranial portion of the right vertebral artery suggestive of severe stenosis or chronic occlusion, stable in the interval. Remainder of the CT angiogram of the brain is negative with no focal stenosis, occlusion or aneurysm seen. Communications: Call Doctor Stroke Electronically signed by: Gretchen Jaramillo MD 05/31/23 22:39 PM Neck CTA 05/31/23 21:09 CR Exam(s): CTA NECK With Contrast IV Amt: 119 ml optiray 320 EXAM: CT Angiography Neck With Intravenous Contrast CLINICAL HISTORY: Reason for exam: HTN, RAZO, shaky. TECHNIQUE: Routine carotid CT angiography protocol was performed with intravenous contrast. NASCET criteria using the distal ICAs for comparison were used for evaluation of stenoses. CTDI is 8.98 mGy and DLP is 350.47 mGy-cm. Automated exposure control was utilized for the study. A dose lowering technique was utilized adhering to the principles of ALARA. MIP reconstructed images were created and reviewed. CONTRAST: Patient received 119 ml optiray 320 of IV contrast COMPARISON: 05/18/2023. FINDINGS: VASCULATURE: Right common carotid artery: Unremarkable. No occlusion or significant stenosis. No dissection. Right internal carotid artery: Minimal calcified plaque of the right carotid bulb. Extracranial segment is patent with no occlusion or significant stenosis. No dissection. Right external carotid artery: Mild calcified plaque at the origin of the right external carotid artery luminal stenosis. Right vertebral artery: Unremarkable. No occlusion or significant stenosis. No dissection. Left common carotid artery: Unremarkable. No occlusion or significant stenosis. No dissection. Left internal carotid artery: Minimal calcified plaque at the left carotid bulb. Mild calcified plaque at the origin of the left internal carotid artery without stenosis. No dissection. Left external carotid artery: Unremarkable. No occlusion. Left vertebral artery: Unremarkable. No occlusion or significant stenosis. No dissection. Aorta: Mild atherosclerotic disease throughout the aortic arch. NECK: Bones/joints: Unremarkable. No acute fracture. Soft tissues: Unremarkable. Lung apices: Lung apices reveal subpleural cystic and interstitial thickening with honeycombing pattern concerning for pulmonary fibrosis. There is nodularity involving the right upper lobe measuring 1.1 cm, cannot exclude nodule/neoplasm. Pleural space: There is mild biapical pleural thickening. CAROTID STENOSIS REFERENCE USING NASCET CRITERIA: % ICA stenosis = (1 - narrowest ICA diameter/diameter of distal cervical ICA) x 100. Mild - <50% stenosis. Moderate - 50-69% stenosis. Severe - 70-94% stenosis. Near occlusion - 95-99% stenosis. Occluded - 100% stenosis. IMPRESSION: Mild calcified atherosclerotic disease as described otherwise no stenosis, occlusion or dissection involving the bilateral carotid and vertebral arteries. Communications: Call Doctor Stroke Electronically signed by: Gretchen Jaramillo MD 05/31/23 22:02 PM PG Care Time/CCT Total # of Minutes Spent Total Time Spent with Patient: Total time spent is greater than 50% in coordination of care (as documented) at patient's floor/unit and/or counseling patient: Coding Level of Care Code 00398 IN/OBS CONSULT LVL 5,80M Diagnoses Hypertensive urgency I16.0 Hyponatremia E87.1
--- NOTE | 2023-06-01 14:53 | Hospitalist Progress Note ---
Date of Service June 01, 2023 Assessment & Plan (1) Chronic hyponatremia: (2) Hypertensive emergency: (3) Stroke-like symptoms: (4) H/O prostate cancer: (5) Alteration in perception: Plan Encephalopathy Hypertensive encephalopathy versus metabolic encephalopathy (hyponatremia) versus ischemic CVA Alteration of perception/fogginess/vague symptoms of disorientation- Symptoms are very similar to presenting symptoms of stroke alert on 05/18- 05/19/2023. Patient also presented with dysarthria at that time. He was on aspirin 81 mg daily, had the addition of clopidogrel 75 mg daily and was discharged at that time. During that admission, patient had CT head that was negative, CTA head negative, CTA neck was negative. Brain MRI showed chronic changes Workup this evaluation included a CT head which showed chronic changes, CTA of the head showed nonvisualization of the distal intracranial portion of the right vertebral artery suggestive of severe stenosis or chronic occlusion. CTA neck was negative. Neurology consulted, recommended brain MRI given high blood pressure and stroke risk factors. 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 every morning and recommended sodium chloride 1 g p.o. twice daily Full code Admission and Anticipated Discharge Date Admission Date: May 31, 2023 Subjective Patient feels well. Denies chest pain or shortness of breath. He says that he does not feel foggy anymore. However, he does want to find out what is causing this in episodes. Review of Systems Review of Systems: All systems reviewed & are unremarkable except as noted in Subjective Physical Exam Physical Exam: General: Awake, conversant Heart: S1, S2/regular rate and rhythm, no murmur rubs or gallops Lungs: Clear to auscultation bilaterally. Normal effort Abdomen: Soft/nontender/nondistended. No hepatosplenomegaly Extremities: No clubbing/cyanosis. No edema Behavior: Appropriate, cooperative Results & Data Results & Data Vital Signs (Past 12 Hours) Vital Signs Temp Pulse Pulse Resp BP Pulse Ox O2 Del Method 06/01/23 11:06 36.5 C 55 L 19 132/80 99 Room Air 06/01/23 08:00 58 L 06/01/23 07:30 Room Air 06/01/23 07:30 36.5 C 56 L 19 141/81 H 99 Room Air Laboratory Results Abnormal lab results 05/31/23 05/31/23 06/01/23 Range/Units 20:14 21:08 07:23 RBC 4.38 L 3.80 L (4.70-6.10) M/uL Hgb 12.2 L (14.0-18.0) g/dl Hct 41.7 L 35.6 L (42.0-52.0) % [place] # (Auto) 0.75 H (0.11-0.59) K/uL Eos # (Auto) 0.51 H (0.00-0.50) K/uL POC Sodium 129 L (135-144) mmol/L Sodium 128 L 134 L (136-145) mmol/L POC Chloride 95 L (101-112) mmol/L Chloride 93 L (98-107) mmol/L POC Anion Gap 13.0 L (16-25) mmol/L POC BUN 46 H (7-18) mg/dl BUN 52 H 32 H D (6-23) mg/dl BUN/Creatinine Ratio 60.5 H 49.2 H (10-20) Glucose 166 H (70-99(Fasting)) mg/dl POC Glucose (other) 171 H (70-99) mg/dl Diagnostic Findings Chest X-Ray 05/31/23 21:05 XR chest 1V portable CLINICAL HISTORY: stroke alert COMPARISON STUDY: Chest CT September 09, 2022. Chest radiograph May 18, 2023. FINDINGS: Elevation of the left hemidiaphragm is unchanged. Left shoulder arthroplasty is incidentally noted. There is no pneumothorax or pleural effusion. Upper lobe predominant interstitial thickening is chronic. Cardiomediastinal silhouette is stable. There is no evidence for pulmonary edema. IMPRESSION: No acute cardiopulmonary findings. No change in appearance of the chest. ACT 112: Negative or not required by law. Electronically signed by: Farhat Bowie M.D. 06/01/2023 7:[address] 05/31/23 21:05 CR Exam(s): CT HEAD Without Contrast EXAM: CT Head Without Intravenous Contrast CLINICAL HISTORY: Reason for exam: Neuro deficit, acute, stroke suspected. TECHNIQUE: Axial computed tomography images of the head/brain without intravenous contrast. CTDI is 45.76 mGy and DLP is 774.27 mGy-cm. Automated exposure control was utilized for the study. A dose lowering technique was utilized adhering to the principles of ALARA. COMPARISON: 05/18/2023. FINDINGS: Brain: Mild to moderate generalized brain atrophy. Decreased attenuation within the deep white matter compatible with microangiopathic white matter disease. No hemorrhage. Ventricles: Unremarkable. No ventriculomegaly. Bones/joints: Unremarkable. No acute fracture. Soft tissues: Unremarkable. Sinuses: Unremarkable as visualized. No acute sinusitis. Mastoid air cells: Unremarkable as visualized. No mastoid effusion. IMPRESSION: Chronic changes as described with no acute intracranial hemorrhage or space-occupying lesion. Communications: Call Doctor Stroke Electronically signed by: Gretchen Jaramillo MD 05/31/23 21:58 PM Head CTA 05/31/23 21:09 CR Exam(s): CTA HEAD With Contrast IV Amt: 119 ml optiray 320 EXAM: CT Angiography Head With Intravenous Contrast CLINICAL HISTORY: Reason for exam: HTN, RAZO, shaky. TECHNIQUE: Axial computed tomographic angiography images of the head with intravenous contrast. CTDI is 45.76 mGy and DLP is 774.27 mGy-cm. Automated exposure control was utilized for the study. A dose lowering technique was utilized adhering to the principles of ALARA. MIP reconstructed images were created and reviewed. CONTRAST: Patient received 119 ml optiray 320 of IV contrast COMPARISON: 05/18/2023. FINDINGS: Right internal carotid artery: Mild calcified plaque through the cavernous portion of the right internal carotid artery with less than 50% diameter stenosis. No aneurysm. Right anterior cerebral artery: Unremarkable. No occlusion or significant stenosis. No aneurysm. Right middle cerebral artery: Unremarkable. No occlusion or significant stenosis. No aneurysm. Right posterior cerebral artery: Unremarkable. No occlusion or significant stenosis. No aneurysm. Right vertebral artery: The distal intracranial portion of the right vertebral artery is not visualized, which may indicate sequela of severe stenosis or chronic/old occlusion, unchanged in the interval. Left internal carotid artery: Mild calcified plaque through the cavernous portion of the left internal carotid artery with less than 50% diameter stenosis. No aneurysm. Left anterior cerebral artery: Unremarkable. No occlusion or significant stenosis. No aneurysm. Left middle cerebral artery: Unremarkable. No occlusion or significant stenosis. No aneurysm. Left posterior cerebral artery: Unremarkable. No occlusion or significant stenosis. No aneurysm. Left vertebral artery: Unremarkable as visualized. Basilar artery: Unremarkable. No occlusion or significant stenosis. No aneurysm. IMPRESSION: Nonvisualization of the distal intracranial portion of the right vertebral artery suggestive of severe stenosis or chronic occlusion, stable in the interval. Remainder of the CT angiogram of the brain is negative with no focal stenosis, occlusion or aneurysm seen. Communications: Call Doctor Stroke Electronically signed by: Gretchen Jaramillo MD 05/31/23 22:39 PM Neck CTA 05/31/23 21:09 CR Exam(s): CTA NECK With Contrast IV Amt: 119 ml optiray 320 EXAM: CT Angiography Neck With Intravenous Contrast CLINICAL HISTORY: Reason for exam: HTN, RAZO, shaky. TECHNIQUE: Routine carotid CT angiography protocol was performed with intravenous contrast. NASCET criteria using the distal ICAs for comparison were used for evaluation of stenoses. CTDI is 8.98 mGy and DLP is 350.47 mGy-cm. Automated exposure control was utilized for the study. A dose lowering technique was utilized adhering to the principles of ALARA. MIP reconstructed images were created and reviewed. CONTRAST: Patient received 119 ml optiray 320 of IV contrast COMPARISON: 05/18/2023. FINDINGS: VASCULATURE: Right common carotid artery: Unremarkable. No occlusion or significant stenosis. No dissection. Right internal carotid artery: Minimal calcified plaque of the right carotid bulb. Extracranial segment is patent with no occlusion or significant stenosis. No dissection. Right external carotid artery: Mild calcified plaque at the origin of the right external carotid artery luminal stenosis. Right vertebral artery: Unremarkable. No occlusion or significant stenosis. No dissection. Left common carotid artery: Unremarkable. No occlusion or significant stenosis. No dissection. Left internal carotid artery: Minimal calcified plaque at the left carotid bulb. Mild calcified plaque at the origin of the left internal carotid artery without stenosis. No dissection. Left external carotid artery: Unremarkable. No occlusion. Left vertebral artery: Unremarkable. No occlusion or significant stenosis. No dissection. Aorta: Mild atherosclerotic disease throughout the aortic arch. NECK: Bones/joints: Unremarkable. No acute fracture. Soft tissues: Unremarkable. Lung apices: Lung apices reveal subpleural cystic and interstitial thickening with honeycombing pattern concerning for pulmonary fibrosis. There is nodularity involving the right upper lobe measuring 1.1 cm, cannot exclude nodule/neoplasm. Pleural space: There is mild biapical pleural thickening. CAROTID STENOSIS REFERENCE USING NASCET CRITERIA: % ICA stenosis = (1 - narrowest ICA diameter/diameter of distal cervical ICA) x 100. Mild - <50% stenosis. Moderate - 50-69% stenosis. Severe - 70-94% stenosis. Near occlusion - 95-99% stenosis. Occluded - 100% stenosis. IMPRESSION: Mild calcified atherosclerotic disease as described otherwise no stenosis, occlusion or dissection involving the bilateral carotid and vertebral arteries. Communications: Call Doctor Stroke Electronically signed by: Gretchen Jaramillo MD 05/31/23 22:02 PM PG Care Time/CCT Total # of Minutes Spent Total Time Spent with Patient: Total time spent is greater than 50% in coordination of care (as documented) at patient's floor/unit and/or counseling patient: Coding Level of Care Code 45734 SUB INP/OBS CARE 2/35MIN Diagnoses Chronic hyponatremia E87.1 Hypertensive emergency I16.1 Stroke-like symptoms R29.90 H/O prostate cancer Z85.46 Alteration in perception R44.9
--- NOTE | 2023-06-01 15:48 | XRay Report ---
XR chest 1V portable HISTORY: hyponatremia, evaluate for infiltrate/mass COMPARISON: Chest 05/31/2023. FINDINGS: No pneumothorax. No pleural effusions. There is chronic elevation of the left hemidiaphragm . The heart remains enlarged. There is a left shoulder prosthesis. Advanced degenerative changes with in the right shoulder. Chronic interstitial thickening persists. No evidence for pulmonary edema. Sma ll focal peripheral density within the right upper lobe has slightly progressed. IMPRESSION: Small focal peripheral density within the right upper lobe is slightly progressed. This could represe nt a developing pneumonitis. ACT 112: Negative or not required by law. Electronically signed by: Anthony Jimenez M.D. 06/01/2023 3:46 PM
--- NOTE | 2023-06-01 16:13 | Magnetic Resonance Report ---
MRI OF THE BRAIN WITHOUT CONTRAST CLINICAL HISTORY: Stroke protocol. Difficulty walking. Hypertension. COMPARISON STUDY: MRI of the brain May 18, 2023. Head CT and CTA of the head May 31, 2023. TECHNIQUE: Utilizing a 1.5 Gogo magnet and dedicated coil, multiplanar, multiecho imaging of the bra in was performed without IV contrast. FINDINGS: There are no foci of restricted diffusion to suggest acute infarct. No acute intracranial h emorrhage, midline shift or mass effect is present. Ventricular system is stable since previous MRI. A few white matter T2 hyperintense foci are unchanged. No intracranial masses are identified on this unenhanced exam. Mild atrophy is again noted. Appearance of the brain is unchanged. There is no masto id fluid. No evidence for sinusitis. IMPRESSION: No acute intracranial findings. ACT 112: Negative or not required by law. Electronically signed by: Farhat Boiwe M.D. 06/01/2023 4:12 PM
[2023-06-02] MEDS: ACETAMINOPHEN 325 MG TAB PO PRN ×2 (01:49→16:18)
[2023-06-02 06:27] LABS: Basophils # (auto) 0.07 K/uL (0.00-0.20); Basophils % (auto) 1.2 %; Eosinophils # (auto) 0.72 K/uL (0.00-0.50); Eosinophils % (auto) 12.6 %; Hematocrit (blood only) 36.9 % (42.0-52.0); Hemoglobin 12.4 g/dl (14.0-18.0); Immature Granulocytes # (auto) 0.01 K/uL (0.01-0.20); Immature Granulocytes % (auto) 0.2 %; Lymphocytes # (auto) 1.58 K/uL (1.20-3.40); Lymphocytes % (auto) 27.6 %; Mean Corpuscular Hgb Conc 33.6 g/dL (32.0-36.0); Mean Corpuscular Volume 95.3 fL (80.0-100.0); Mean Platelet Volume 9.8 fL (9.4-12.4); Neutrophils # (auto) 2.54 K/uL (1.40-6.50); Neutrophils % (auto) 44.4 %; Platelet Count 225 K/uL (130-400); RDW Coefficient of Variation 11.9 % (11.5-14.5); RDW Standard Deviation 41.5 fL (36.4-46.3); Red Blood Count 3.87 M/uL (4.70-6.10); White Blood Count 5.72 K/ul (4.8-10.8)
[2023-06-02 06:56] LABS: Albumin Globulin Ratio 1.4 (0.9-2); Albumin Level 3.5 gm/dl (3.4-5.0); BUN Creatinine Ratio 30.3 (10-20); Bilirubin,Total 0.6 mg/dl (0.2-1.0); Calcium 8.5 mg/dl (8.6-10.3); Est GFR (African American) 100.6 ml/min; Est GFR (Non-African American) 86.8 ml/min; Globulin 2.5 gm/dl (2.5-4.0); Magnesium 1.8 mg/dl (1.7-2.4); Potassium 4.2 mmol/L (3.5-5.1)
[2023-06-02 07:10] LABS: Thyroid Stimulating Hormone 2.023 uIu/ml (0.300-4.500)
--- NOTE | 2023-06-02 08:18 | Nephrology Progress Note ---
Date of Service June 02, 2023 Assessment & Plan (1) Hypertensive urgency: Plan: * BP control in outpatient setting has been variable on single agent. Clinically doubt IDALIA as kidney function has been stable while on ACEi therapy. Would only pursue secondary causes for HTN if BP is difficult control while on maximum doses of 3 agents, one of which is a diuretic * Continue Lisinopril 20 mg qAM and Furosemide 20 mg qAM * If BP worsens, will consider addition of long acting CCB (Amlodipine 2.5 mg qAM) * If discharge is anticipated, please have patient follow up w/ Dr. Enciso in 1-2 weeks ([phone]) (2) Hyponatremia: Plan: * Probable SIADH * TSH normal at 2.023 * CXR - elevated L hemidiaphragm, new small peripheral density (infection?). Monitor clinically * Continue NaCl 1,000 mg po BID * Continue Furosemide 20 mg qAM * Monitor serum Na, Uosm Admission and Anticipated Discharge Date Admission Date: May 31, 2023 Subjective Mr. Ahuja was evaluated in his hospital room this morning. SBP has been 120-140 mm Hg last 24 hours. He reports that he has not required IV Hydralazine during this time Review of Systems Constitutional: no fever Eyes: no problem reported Ear, Nose, Mouth, Throat: no problem reported Respiratory: no cough and no dyspnea Cardiovascular: no chest pain Gastrointestinal: no abdominal pain, no nausea, no vomiting and no diarrhea/loose stools Genitourinary: no dysuria or no hematuria Integumentary: no rash Neurologic: no syncope and no headache(s) Physical Exam Constitutional: not in distress Eyes: PERRL, conjunctivae normal, anicteric sclerae ENMT: external ear and nose normal, oropharynx normal Neck: trachea midline, no thyromegaly Respiratory: normal respiratory effort, lungs clear to auscultation Cardiovascular: RRR, no murmur, no edema Gastrointestinal (Abdomen): normal bowel sounds, soft, nontender, no hepatosplenomegaly Musculoskeletal: Extremities: no cyanosis and no clubbing Skin: no rashes, warm and dry Neurologic: Speech / Cognition: normal speech and normal cognition Psychiatric: Affect: euthymic affect Results & Data Vital Signs (Past 12 Hours) Vital Signs Temp Pulse Resp BP Pulse Ox O2 Del Method 06/02/23 07:09 36.3 C L 54 L 20 135/80 100 Room Air 06/02/23 04:39 36.4 C L 53 L 18 132/79 99 Room Air 06/01/23 23:45 36.5 C 60 18 136/81 96 Room Air Laboratory Results Laboratory Results - last 24 hr 06/01/23 06/01/23 06/02/23 07:23 Unknown 05:43 WBC 5.06 5.72 RBC 3.80 L 3.87 L Hgb 12.2 L 12.4 L Hct 35.6 L 36.9 L MCV 93.7 95.3 MCH 32.1 32.0 MCHC 34.3 33.6 RDW Std Deviation 41.3 41.5 RDW Coeff of [place] 11.9 11.9 Plt Count 223 225 MPV 10.0 9.8 Immature Gran % (Auto) 0.4 0.2 Neut % (Auto) 44.3 44.4 Lymph % (Auto) 29.2 27.6 [place] % (Auto) 14.8 14.0 Eos % (Auto) 10.1 12.6 Baso % (Auto) 1.2 1.2 Neut # (Auto) 2.24 2.54 Lymph # (Auto) 1.48 1.58 [place] # (Auto) 0.75 H 0.80 H Eos # (Auto) 0.51 H 0.72 H Baso # (Auto) 0.06 0.07 Immature Gran # (Auto) 0.02 0.01 Sodium 134 L 132 L Potassium 4.2 4.2 Chloride 101 99 Carbon Dioxide 30 29 Anion Gap 3 4 BUN 32 H D 23 Creatinine 0.65 0.76 Est Cr Clr Drug Dosing 78.6 66.0 Est GFR ( Amer) 107.2 100.6 Est GFR (Non-Af Amer) 92.5 86.8 BUN/Creatinine Ratio 49.2 H 30.3 H Glucose 98 85 Calcium 8.7 8.5 L Phosphorus 2.9 Magnesium 1.9 1.8 Total Bilirubin 0.5 0.6 AST 23 23 ALT 19 19 Alkaline Phosphatase 68 68 Total Protein 6.0 6.0 Albumin 3.5 3.5 Globulin 2.5 2.5 Albumin/Globulin Ratio 1.4 1.4 TSH 2.023 Urine Osmolality 578 PG Care Time/CCT Total # of Minutes Spent Total Time Spent with Patient: Total time spent is greater than 50% in coordination of care (as documented) at patient's floor/unit and/or counseling patient: Coding Level of Care Code 33532 SUB INP/OBS CARE 3/50MIN Diagnoses Hypertensive urgency I16.0 Hyponatremia E87.1
[2023-06-02] MEDS: FLUTICASONE PROPIONATE NA SPR 16 GM BTL NAE SCH ×2 (08:49→20:26)
[2023-06-02] MEDS: SODIUM CHLORIDE 1 GM TABLET PO SCH ×2 (08:49→20:25)
[2023-06-02] MEDS: ATORVASTATIN 20 MG TAB PO SCH (08:50)
[2023-06-02] MEDS: CEROVITE ADV FORMULA TAB PO SCH (08:50)
[2023-06-02] MEDS: CLOPIDOGREL BISULFATE 75 MG TAB PO SCH (08:50)
[2023-06-02] MEDS: lisinopril 20 MG TAB PO SCH (08:50)
[2023-06-02] MEDS: ASPIRIN 81 MG ECTAB PO SCH (08:50)
[2023-06-02] MEDS: MAGNESIUM OXIDE 400 MG TAB PO SCH (08:51)
[2023-06-02] MEDS: MULTIVITAMIN TAB PO SCH (08:51)
[2023-06-02] MEDS: FUROSEMIDE 20 MG TAB PO SCH (08:51)
[2023-06-02] MEDS ORDERED: OPTIRAY 320 500ml IV ONE (12:34)
--- NOTE | 2023-06-02 13:06 | CT Scan Report ---
CT OF THE CHEST WITH IV CONTRAST CLINICAL HISTORY: RUL nodule, SIADH,assess for lung CA COMPARISON STUDY: Chest CTs December 14, 2007 and September 09, 2022. Chest radiograph June 01, 2023. TECHNIQUE: Following IV administration of 90 mL of Optiray, helical axial images of the chest were o btained. Sagittal and coronal reconstructions were viewed as well as maximal intensity projections o n an independent 3-D workstation. Automated exposure control was utilized for the study. A dose low ering technique was utilized adhering to the principles of ALARA. CT DOSE: 559.41 mGy.cm FINDINGS: No enlarged axillary, mediastinal or hilar lymph nodes are present. The size of the heart is normal. There is no pericardial effusion. There is moderate coronary artery calcification. No pneu mothorax or pleural effusion is present. Moderate elevation of the left hemidiaphragm remains unchang ed. Subpleural densities within the right lung are unchanged. A subpleural right upper lobe density a ccounts for the finding on chest radiograph of June 01, 2023. This is unchanged since CT of [facility] 2021 and represents scarring. There is associated mild bronchiectasis. A 1.5 cm irregular ri ght upper lobe nodular density on image 71 has slightly increased since prior exam when it measured 0 .8 cm. There remainder of the chest is unchanged in appearance. No suspicious lesions within the bony thorax are present. Visualized portions of the upper abdomen are unremarkable. IMPRESSION: 1. Mild increase in size of a 1.5 cm irregular right upper lobe nodular density since chest CT of [facility] 2022. This may reflect scarring. However, a small neoplasm could appear similar. Short-term fo llow-up chest CT in 6 months is recommended. 2. Otherwise, unchanged appearance of the chest from earlier exams. The finding on chest radiograph o f June 01, 2023 was due to subpleural scarring. 3. No thoracic lymphadenopathy. 4. Stable elevation of the left hemidiaphragm. ACT 112: Positive. There are findings on this exam that require communication between the performing entity and the patient following Patient Test Result Information Act ([place] Act 112) guidelines. Electronically signed by: Farhat Bowie M.D. 06/02/2023 1:04 PM
[2023-06-02] MEDS ORDERED: amLODIPine BESYLATE 5 MG TAB PO SCH ×2 (15:45)
--- NOTE | 2023-06-02 15:51 | Hospitalist Progress Note ---
Date of Service June 02, 2023 Assessment & Plan (1) Hypertensive emergency: Plan: BPs quite elevated both admissions with dysarthria COuld be from NaCl tabs, not likely from IDALIA as renal function normal and has been on ACEi Appreciate Nephro management Has associated left sided headache MRI brain no stroke, CTA H/N with chronic R vert artery stenosis or occlusion Continue lisinopril 20mg daily Add amlodipine 2.5mg po hs, first dose now, titrate up as needed P/w Encephalopathy-Hypertensive encephalopathy versus metabolic encephalopathy (hyponatremia)-resolved (2) Chronic hyponatremia: Plan: Acute on chronic, 128 on admission and now up to 132 Nephrology on board UrOSM consistent with SIADH. Unknown cause but found to have lung nodule on CXR--> checked Chest CT and confirms scarring in RUL and irregular 1.5cm nodule larger than previous in 08/2022 Continue NaCl 1000mg po bid and Nephro added on lasix 20mg po qAM Follow BMP in AM Recommend f/u for PULM nodule with PULM as outpt (3) Stroke-like symptoms: Plan: stroke ruled out, dysarthria likely from elevated BPs Alteration of perception/fogginess/vague symptoms of disorientation- Symptoms are very similar to presenting symptoms of stroke alert on 05/18- 05/19/2023. Patient also presented with dysarthria at that time. He was on aspirin 81 mg daily, had the addition of clopidogrel 75 mg daily and was discharged at that time. During that admission, patient had CT head that was negative, CTA head negative, CTA neck was negative. Brain MRI showed chronic changes Workup this evaluation included a CT head which showed chronic changes, CTA of the head showed nonvisualization of the distal intracranial portion of the right vertebral artery suggestive of severe stenosis or chronic occlusion. CTA neck was negative. Neurology consulted, recommended brain MRI given high blood pressure and stroke risk factors.MRI neg here Continue aspirin 81 mg daily and clopidogrel 75 mg daily Needs high intensity statin--increase to 40mg Symptoms could be related to issues with hyponatremia, even though it is noted is a chronic issue For headache which is related to high blood pressure, give Tylenol controlled blood pressure as above (4) H/O prostate cancer: Plan: Noted (5) H/O: CVA (cerebrovascular accident): Plan: As above (6) Insomnia: Plan: Continue temazepam but make at bedtime as he takes at home rather than as needed (7) Multiple pulmonary nodules: Plan: Needs follow-up with pulmonary as noted above Plan DVT prophylaxis add Lovenox Disposition-discharge to home tomorrow if blood pressure is better controlled and sodium remained stable Admission and Anticipated Discharge Date Admission Date: May 31, 2023 Subjective Started having a left sided headache this afternoon as his BP trends back upward again. Has chronic light sensitivity since he had a stroke that affected his vision Denies CP, SOB. Is voiding Tele with NSR normal rates Physical Exam Constitutional: WD/WN, vitals as above Eyes: PERRL, conjunctivae normal, anicteric sclerae ENMT: external ear and nose normal, oropharynx normal Respiratory: normal respiratory effort, lungs clear to auscultation Cardiovascular: RRR, no murmur, no edema Gastrointestinal (Abdomen): normal bowel sounds, soft, nontender, no hepatosplenomegaly Neurologic: PERRL, EOMI, accommodation nl, no face palsy, no dysarthria CN's II-XI intact bilaterally; no focal motor deficits Results & Data Results & Data Vital Signs (Past 12 Hours) Vital Signs Temp Pulse Pulse Resp BP Pulse Ox O2 Del Method 06/02/23 15:21 36.8 C 71 19 176/96 H 92 Room Air 06/02/23 15:00 63 06/02/23 10:57 36.5 C 60 19 132/80 97 Room Air 06/02/23 09:00 55 L 06/02/23 07:09 36.3 C L 54 L 20 135/80 100 Room Air 06/02/23 04:39 36.4 C L 53 L 18 132/79 99 Room Air Laboratory Results CBC, BMP, troponin reviewed PG Care Time/CCT Total # of Minutes Spent Total Time Spent with Patient: Total time spent is greater than 50% in coordination of care (as documented) at patient's floor/unit and/or counseling patient: Coding Level of Care Code 69893 SUB INP/OBS CARE 3/50MIN Diagnoses Hypertensive emergency I16.1 Chronic hyponatremia E87.1 Stroke-like symptoms R29.90 H/O prostate cancer Z85.46 H/O: CVA (cerebrovascular accident) Z86.73 Insomnia G47.00 Multiple pulmonary nodules R91.8
[2023-06-02] MEDS ORDERED: TEMAZEPAM 15 MG CAPSULE PO SCH (21:00)
[2023-06-03 07:51] LABS: Albumin Globulin Ratio 1.2 (0.9-2); Albumin Level 3.7 gm/dl (3.4-5.0); BUN Creatinine Ratio 31.2 (10-20); Bilirubin,Total 0.6 mg/dl (0.2-1.0); Calcium 8.6 mg/dl (8.6-10.3); Creatinine Clr Calc Pharmacy 62.9 ml/min; Est GFR (Non-African American) 86.3 ml/min; Magnesium 1.9 mg/dl (1.7-2.4); Potassium 4.3 mmol/L (3.5-5.1); Total Protein 6.7 gm/dl (6.0-8.3)
--- NOTE | 2023-06-03 08:30 | Nephrology Progress Note ---
Date of Service June 03, 2023 Assessment & Plan (1) Hypertensive urgency: Plan: * BP control in outpatient setting has been variable on single antihypertensive agent. Clinically doubt IDALIA as kidney function has been stable while on ACEi therapy. Would only pursue secondary causes for HTN if BP is difficult control while on maximum doses of 3 agents, one of which is a diuretic * Continue Lisinopril 20 mg qAM and Furosemide 20 mg qAM * BP has been acceptable last 24-48 hours. Has not needed IV Hydralazine since 06/01 at [facility] * If BP worsens, will consider addition of long acting CCB (Amlodipine 2.5 mg qAM) * If discharge is anticipated, please have patient follow up w/ Dr. Enciso in 1-2 weeks ([phone]) (2) Hyponatremia: Plan: * Probable SIADH * TSH normal at 2.023 * CXR - elevated L hemidiaphragm, new small peripheral density (infection?). Monitor clinically * Continue NaCl 1,000 mg po BID * Continue Furosemide 20 mg qAM * Monitor serum Na, Uosm Admission and Anticipated Discharge Date Admission Date: May 31, 2023 Subjective Mr. Ahuja was evaluated in his hospital room this morning. SBP has been 120-140 mm Hg last 24 hours. He reports that he has not required IV Hydralazine since 06/01 at [facility]. Mr. Ahuja denies RAZO, angina or focal weakness. He is tolerating SHYLA + loop diuretic without cough or muscle cramping Review of Systems Constitutional: no fever Eyes: no problem reported Ear, Nose, Mouth, Throat: no problem reported Respiratory: no cough and no dyspnea Cardiovascular: no chest pain Gastrointestinal: no abdominal pain, no nausea, no vomiting and no diarrhea/loose stools Genitourinary: no dysuria or no hematuria Integumentary: no rash Neurologic: no syncope and no headache(s) Physical Exam Constitutional: not in distress Eyes: PERRL, conjunctivae normal, anicteric sclerae ENMT: external ear and nose normal, oropharynx normal Neck: trachea midline, no thyromegaly Respiratory: normal respiratory effort, lungs clear to auscultation Cardiovascular: RRR, no murmur, no edema Gastrointestinal (Abdomen): normal bowel sounds, soft, nontender, no hepatosplenomegaly Musculoskeletal: Extremities: no cyanosis and no clubbing Skin: no rashes, warm and dry Neurologic: Speech / Cognition: normal speech and normal cognition Psychiatric: Affect: euthymic affect Results & Data Vital Signs (Past 12 Hours) Vital Signs Temp Pulse Pulse Resp BP Pulse Ox Pulse Ox 06/03/23 07:13 36.4 C L 59 L 19 134/79 96 06/03/23 03:29 36.4 C L 59 L 20 125/74 96 06/03/23 02:00 94 06/02/23 23:04 36.4 C L 62 22 125/75 94 06/02/23 21:59 62 06/02/23 20:30 O2 Del Method O2 Del Method 06/03/23 07:13 Room Air 06/03/23 03:29 Room Air 06/03/23 02:00 Room Air 06/02/23 23:04 Room Air 06/02/23 21:59 06/02/23 20:30 Room Air Laboratory Results Laboratory Results - last 24 hr 06/03/23 07:11 Sodium 130 L Potassium 4.3 Chloride 97 L Carbon Dioxide 29 Anion Gap 4 BUN 24 H Creatinine 0.77 Est Cr Clr Drug Dosing 62.9 Est GFR ( Amer) 100.0 Est GFR (Non-Af Amer) 86.3 BUN/Creatinine Ratio 31.2 H Glucose 86 Calcium 8.6 Magnesium 1.9 Total Bilirubin 0.6 AST 22 ALT 19 Alkaline Phosphatase 74 Total Protein 6.7 Albumin 3.7 Globulin 3.0 Albumin/Globulin Ratio 1.2 PG Care Time/CCT Total # of Minutes Spent Total Time Spent with Patient: Total time spent is greater than 50% in coordination of care (as documented) at patient's floor/unit and/or counseling patient: Coding Level of Care Code 69467 SUB INP/OBS CARE 3/50MIN Diagnoses Hypertensive urgency I16.0 Hyponatremia E87.1
[2023-06-03] MEDS: FUROSEMIDE 20 MG TAB PO SCH (09:02)
[2023-06-03] MEDS: MAGNESIUM OXIDE 400 MG TAB PO SCH (09:02)
[2023-06-03] MEDS: CYANOCOBALAMIN (B-12) 500 MCG TABLET PO SCH (09:03)
[2023-06-03] MEDS: lisinopril 20 MG TAB PO SCH (09:03)
[2023-06-03] MEDS: CLOPIDOGREL BISULFATE 75 MG TAB PO SCH (09:04)
[2023-06-03] MEDS: SODIUM CHLORIDE 1 GM TABLET PO SCH (09:05)
[2023-06-03] MEDS: FLUTICASONE PROPIONATE NA SPR 16 GM BTL NAE SCH (09:05)
[2023-06-03] MEDS: ATORVASTATIN 20 MG TAB PO SCH (09:05)
[2023-06-03] MEDS: ASPIRIN 81 MG ECTAB PO SCH (09:05)
[2023-06-03] MEDS: CEROVITE ADV FORMULA TAB PO SCH (09:05)
[2023-06-03] MEDS: MULTIVITAMIN TAB PO SCH (09:05)
[2023-06-03] MEDS ORDERED: ENOXAPARIN INJ 40 MG/0.4 ML SYR SQ SCH (09:30)
--- NOTE | 2023-06-03 15:23 | Discharge Summary ---
Discharge Summary Date of Service June 03, 2023 Notes For Next Care Provider Medication Changes From Visit Added amlodipine 2.5mg po hs Increased atorvastatin to 40mg po daily Should only take Plavix for 5 more days for a total of 21 days of DAPT since p revious admission for TIA Admission HPI Per Admitting Provider The patient is a 78-year-old male with past medical history including prostate cancer, scoliosis, lumbar degenerative disc disease, hyperlipidemia, right vertebral artery stenosis, hypertension, insomnia and admission from 05/18- 05/19/2023 for stroke alert due to dysarthria. During that admission, patient was continued on aspirin, and then had the addition of clopidogrel prior to discharge. He reports that he has been doing well until 4:00 this afternoon when his symptoms returned as above. Principal Dx & Hospital Course #1 = Principal Diagnosis (1) Hypertensive emergency: BPs quite elevated both admissions with dysarthria COuld be from NaCl tabs, not likely from IDALIA as renal function normal and has been on ACEi Appreciate Nephro management Has associated left sided headache MRI brain no stroke, CTA H/N with chronic R vert artery stenosis or occlusion Continue lisinopril 20mg daily Added amlodipine 2.5mg po hs and BPs MUCH improved, headache resolved, and he feels the nest he has in 10 years P/w Encephalopathy-Hypertensive encephalopathy versus metabolic encephalopathy (hyponatremia)-resolved (2) Chronic hyponatremia: Acute on chronic, 128 on admission and now up to 130 Nephrology on board [facility] consistent with SIADH. Unknown cause but found to have lung nodule on CXR--> checked Chest CT and confirms scarring in RUL and irregular 1.5cm nodule larger than previous in 08/2022 Continue NaCl 1000mg po bid and lasix 20mg po qAM Follow BMP as outpt Recommend f/u for PULM nodule with PULM as outpt f/u with Nephro in 1-2 weeks (3) Stroke-like symptoms: stroke ruled out, dysarthria likely from elevated BPs Alteration of perception/fogginess/vague symptoms of disorientation- Symptoms are very similar to presenting symptoms of stroke alert on 05/18- 05/19/2023. Patient also presented with dysarthria at that time. He was on aspirin 81 mg daily, had the addition of clopidogrel 75 mg daily and was discharged at that time. During that admission, patient had CT head that was negative, CTA head negative, CTA neck was negative. Brain MRI showed chronic changes Workup this evaluation included a CT head which showed chronic changes, CTA of the head showed nonvisualization of the distal intracranial portion of the right vertebral artery suggestive of severe stenosis or chronic occlusion. CTA neck was negative. Neurology consulted, recommended brain MRI given high blood pressure and stroke risk factors.MRI neg here Continue aspirin 81 mg daily and clopidogrel 75 mg daily for total of 21 days of DAPT--> only needs 5 more days of Plavix Needs high intensity statin due to his previous CVA in 2020--increase to 40mg Symptoms could be related to issues with hyponatremia, even though it is noted is a chronic issue For headache which is related to high blood pressure, give Tylenol controlled blood pressure as above-resolved (4) H/O prostate cancer: Noted (5) H/O: CVA (cerebrovascular accident): As above (6) Insomnia: Continue temazepam hs (7) Multiple pulmonary nodules: Needs follow-up with pulmonary as noted above Plan DVT prophylaxis Lovenox Disposition-discharge to home today Discharge Exam Constitutional WD/WN, vitals as above Respiratory normal respiratory effort, lungs clear to auscultation Cardiovascular RRR, no murmur, no edema Gastrointestinal (Abdomen) normal bowel sounds, soft, nontender, no hepatosplenomegaly Neurologic CN's II-XI intact bilaterally; no focal motor deficits Updated Medication List Medication Instructions Recorded Confirmed Type calcium carb 300 mg-D3 20 mcg-mag 1 tab PO QAM 08/04/18 05/31/23 History ox 25 mg-engraver copperplate 0.5 [id number] tablet (Caltrate-D3 Plus Minerals) magnesium oxide 400 mg PO QAM 08/04/18 05/31/23 History multivitamin 1 tab PO QAM 08/04/18 05/31/23 History cyanocobalamin (vitamin B-12) 1,000 mcg PO Q2D 07/30/19 05/31/23 History 1,000 mcg tablet cetirizine 10 mg tablet (Allergy 10 mg PO DAILY PRN Allergy Symptoms 05/22/21 1 08/01/22 History Relief (cetirizine)) aspirin 81 mg tablet,delayed 81 mg PO DAILY #30 tabs 06/15/21 05/31/23 Rx release (Adult Aspirin Regimen) fluticasone propionate 50 1 spray intranasal BID #16 grams 07/09/22 05/31/23 Rx mcg/actuation nasal spray,suspension (Flonase Allergy Relief) lisinopril 20 mg tablet 20 mg PO QAM #90 tabs 09/30/22 05/31/23 Rx acetaminophen 500 mg tablet 1,000 mg (2 x 500 mg) PO BIDWMEAL 04/05/23 05/31/23 Rx (Tylenol Extra Strength) PRN fever #20 tabs temazepam 30 mg capsule 30 mg PO HS PRN Sleep #30 caps 04/28/23 05/31/23 Rx amoxicillin 500 mg tablet 2,000 mg PO DIRECTED PRN PRIOR 05/18/23 05/31/23 History TO DENTAL PROCEDURES clopidogrel 75 mg tablet 75 mg PO QAM #30 tabs 05/25/23 05/31/23 Rx atorvastatin 20 mg tablet 20 mg PO DAILY #90 tabs 05/30/23 05/31/23 Rx amlodipine 2.5 mg tablet 2.5 mg PO HS #30 tabs 06/03/23 Rx atorvastatin 40 mg tablet 40 mg PO DAILY #30 tabs 06/03/23 Rx furosemide 20 mg tablet 20 mg PO QAM #30 tabs 06/03/23 Rx Hospital Stay Data Consultations 05/31/23 22:52 ED Decision to Admit Stat 06/01/23 02:10 Consult Nephrology Routine 06/01/23 07:53 Consult Neurology Routine Diagnostic Imagining Performed 05/31/23 21:05 CT head/brain wo con Stat 05/31/23 21:09 CT angio head w con Stat CT angio neck with con Stat 06/01/23 11:25 MRI Brain [MR brain wo con] Routine 06/02/23 09:39 CT chest diagnostic w con Routine Pending Results Patient Have Any Pending Studies at Discharge: No Discharge Instructions Given to Patient (Per Discharging Provider) You were admitted with stroke-like symptoms and found to not have a new stroke. You should continue taking the Plavix from the last admission through 06/08/23 and then STOP. Your blood pressure was quite elevated and you were started on a new medication for this called amlodipine 2.5mg at bedtime. This helped your blood pressure and your headache improve. Your sodium remains low but is stable from previous. Please continue the salt tablets and the lasix as before and follow up with Dr. Fernie in 1-2 weeks. Your atorvastatin dose was increased to 40mg daily from 20mg due to your previous history of stroke. You were found to have a nodule in your right lung and you should have your PCP refer you to Pulmonology for further workup of this. Total Time Total Time Spent Total Time Spent (In Minutes): 35 min Coding Level of Care Code 01985 INP/OBS DISCH >30 MIN Diagnoses Hypertensive emergency I16.1 Chronic hyponatremia E87.1 Stroke-like symptoms R29.90 H/O prostate cancer Z85.46 H/O: CVA (cerebrovascular accident) Z86.73 Insomnia G47.00 Multiple pulmonary nodules R91.8
--- NOTE | 2023-06-03 18:16 | Electrocardiogram Report ---
Test Reason : Blood Pressure : / mmHG Vent. Rate : 096 BPM Atrial Rate : 096 BPM P-R Int : 216 ms QRS Dur : 104 ms QT Int : 352 ms P-R-T Axes : 066 025 042 degrees QTc Int : 444 ms Poor data quality, interpretation may be adversely affected Sinus rhythm with 1st degree A-V block Biatrial enlargement Cannot rule out Anterior infarct , age undetermined Abnormal ECG When compared with ECG of 18-MAY-2023 13:32, Premature supraventricular complexes are no longer Present Confirmed by Jamir Calhoun ([id number]) on 06/03/2023 6:16:36 PM Referred By: REFERRED SELF Confirmed By:Jamir Calhoun
[2023-06-04] MEDS ORDERED: ATORVASTATIN 40 MG TAB PO SCH (09:00)
== END 2023-06-03 16:13 | disposition home or self-care (01) | DRG 304 ==
LOC: ED 20:52 → SUATTDRO 23:53 → 2S 23:53

== ENCOUNTER 2024-09-25 06:52 | Inpatient (IN) ==
--- NOTE | 2024-09-25 07:20 | Emergency Department Note ---
Impression & Plan Acute hypoxic respiratory failure, Pneumonia ED Provider Note NAME: ANGEL LUIS HERNANDEZ AGE: 79 SEX: M : 1945 ARRIVES VIA: Walk-In INFORMANT: Patient ED PROVIDER(S): Gokul Higginbotham DO CHIEF COMPLAINT: Syncope HPI: Patient is an 79-year-old male who presents to the ER with a past medical history of CVA, hypertension, anemia following waking up early this morning around 3 AM. He had diffuse chills and myalgias. He took some Tylenol. He felt very nauseated like he was going to vomit and then this went away. Later he was walking and he woke up on the floor. He notes that he passed out. He does not remember it. He denies any complaints from the fall. No weakness or numbness in the arms or legs. No chest pain or shortness of breath preceding or following this event. No dysuria, urgency, or frequency. No other exacerbating or remitting factors. ADDITIONAL HISTORY OBTAINED: Per HPI Chronic Medical/Social Conditions Affecting Care: Per HPI PAST MEDICAL HISTORY:See Below PAST SURGICAL HISTORY:See Below FAMILY HISTORY:See Below SOCIAL HISTORY:See Below HOME MEDICATIONS:See Below ALLERGIES:See Below VITALS:See Below PHYSICAL EXAMINATION: GENERAL: Sitting up in bed, alert, well appearing, well nourished, no distress, non-toxic HEAD: NC/AT EYE EXAM: normal conjunctiva. PERRL and EOM's grossly intact. OROPHARYNX: no exudate, no erythema, lips, buccal mucosa, and tongue normal and mucous membranes are moist NECK: supple, no nuchal rigidity, no adenopathy, non-tender LUNGS: Clear to auscultation. Normal chest wall mechanics HEART: no murmurs, S1 normal and S2 normal ABDOMEN: abdomen soft, non-tender, normo-active bowel sounds, no masses, no rebound or guarding. UPPER EXTREMITIES: upper extremities are grossly normal. LOWER EXTREMITIES: No pitting edema. NEURO EXAM: Normal sensorium, cranial nerves II-XII intact, normal speech, no weakness of arms, no weakness of legs. No drift. Finger to nose intact. Gross sensation intact. MEDICAL DECISION MAKING: Patient is an 79-year-old male who presents to the ER with a past medical history of CVA for the above-stated complaint. IV was established and blood work was obtained. Patient was found to be hypoxic and was placed on 2 L nasal cannula. Labs show mild leukocytosis of 12,000. No significant anemia. BMP with LFTs and bilirubin was unremarkable. Lactic acid at 1.9. Pro-Carrington was normal. Troponin was negative. UA was clean. Lyme was negative. Chest x-ray suggested pneumonia. CTA of the chest was performed due to the hypoxia and shows pneumonia no PE. Patient was given IV Rocephin, fluids and IV doxycycline. Discussed case with the hospitalist for further evaluation management treatment. Consults/Care Managements Discussions: Per [facility] Triage Nursing notes reviewed. Limited review of prior medical records performed Vital Signs: reviewed and remarkable for no significant abnormalities Differential diagnosis: Differential diagnosis includes etiologies such as vasovagal event, infection, hypoglycemia, electrolyte abnormalities, cardiac sources, intracerebral event, toxicologic, neurologic, as well as others were entertained. ER treatment provided: See below Diagnostics interpreted by me include EKG and cardiac monitoring as listed below: -Cardiac Monitoring: An order was placed for continuous cardiac monitoring. The monitor shows a rate of 90sinus with rhythm. -ECG: Sinus tachycardia rate of 104 Normal axis No PVCs QTc 441 Poor baseline -Laboratory studies:Interpreted by me as stated above in MDM and shown below. Imaging studies: Xrays: As interpreted by me: Portable AP upright 1 view of the chest shows elevated hemidiaphragm and questionable pneumonia CTs show: CTA of the chest shows pneumonia Procedures:none Critical Care: I have personally spent 35 minutes of critical care time in the direct management of this patient. This includes bedside care, interpretation of diagnostic studies, and testing, discussion with consultants, patient, and family members, and other required patient management activities. This 35 minutes is in excess of all separately billable procedures. Past Med/Surg History Problem List (Updated 09/25/24 @ 13:21 by Gokul Higginbotham DO) Pneumonia (Acute) Acute hypoxic respiratory failure (Acute) PNA (pneumonia) Dysphagia Dyspnea on exertion Lung nodule seen on imaging study Chronic hyponatremia (Acute) URI (upper respiratory infection) Leg weakness, bilateral Hypertrophy of both inferior nasal turbinates Nasal septal deviation Chronic maxillary sinusitis H/O: CVA (cerebrovascular accident) Health care maintenance Nail deformity Osteoarthritis of left knee Hyperglycemia Recurrent sinus infections FH: abdominal aortic aneurysm H/O prostate cancer Scoliosis (Chronic) Osteopenia (Chronic) Osteoarthritis of first carpometacarpal joint, unspecified (Chronic) Multiple pulmonary nodules (Chronic) Knee pain, bilateral (Chronic) Insomnia (Chronic) Inguinal hernia (Chronic) Hypertension Disc degeneration, lumbar (Chronic) Anemia, mild (Chronic) Medical History (Updated 09/25/24 @ 13:21 by Gokul Higginbotham, DO) Accelerated hypertension History of prostate cancer (1999) sx intervention History of TIA (transient ischemic attack) (2022) hx mini stroke Osteopenia Scoliosis Osteoarthritis HTN (hypertension) History of COVID-19 (11/2021) following covid experiences sob on exertion...improved some. Lung nodules monitors, most recent ct scan today 04/19/24. Unknown results as of current. [facility]. URI (upper respiratory infection) no specific dx , dr ford on 04/16/24 for productive cough, sinus congestion, nausea. Feeling better today. Current abx for. History of stroke approx 2020. residuals: left eye doesn't want to work with right eye, trouble with reading and walking (cane prn). History of skin cancer Sleep disturbance Dental infection per pt hx and was removed . At current: 2 teeth with small infections - last memo 04/2024. Upcoming removal planned for new 2024/not yet scheduled. Surgical History History of colonoscopy History of left cataract surgery History of right cataract surgery History of left shoulder replacement S/P genital surgery (~2003) Penile prosthetic device S/P hernia repair H/O radical retropubic prostatectomy Family History Father , age 89 Alzheimer disease Coronary heart disease [place]' lung Paget's disease Patient Mother , age 85 Coronary heart disease Stroke multiple first on at age 78 Hypertension Denies family history of Prostate cancer Social History Smoking Status: Never smoker Second Hand Exposure: No; Do You Dip or Chew Tobacco: No; Hx Alcohol Use: No Hx Substance Use: No Preferred Language: Arabic Communication Ability: Effective Visual Impairment: No Limitations Hearing Ability: Normal 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 Beliefs That Will Affect Care: None marital status: Current Living Situation: Spouse current occupational status: retired current occupation: [employer] Feels Safe at Home: Yes Physical Activity Frequency: Daily Physical Activity Frequency Comment: vee Concepcion 5-6 times a week Seatbelt Use: always Assistive Devices: Cane, Glasses and Other Allergies Allergies Allergy/AdvReac Type Severity Reaction Status Date / Time zolpidem AdvReac Unknown doesn't Verified 09/19/24 11:00 bring me down for sleeping, wires me up Home Meds Home Medications Medication Instructions Recorded Confirmed calcium 300 mg-D3 20 mcg-magnesium 1 tab PO QAM 08/04/18 09/25/24 25 mg-coppr 0.5 [id number] tablet (Caltrate-D3 Plus Minerals) multivitamin 1 tab PO QAM 08/04/18 09/25/24 cyanocobalamin (vitamin B-12) 1,000 mcg PO Q2D 07/30/19 09/25/24 1,000 mcg tablet cetirizine 10 mg tablet (Allergy 10 mg PO QAM Allergy Symptoms 05/22/21 09/25/24 Relief (cetirizine)) magnesium oxide 400 mg PO Q OTHER DAY 06/08/23 09/25/24 Lactobacil.acidophilus-Bifido.animalis 1 cap PO DAILY 07/20/23 09/25/24 5 billion cell sprinkle capsule (Probiotic) acetaminophen 500 mg tablet 1,000 mg PO TID PRN Pain 04/19/24 09/25/24 (Tylenol Extra Strength) doxycycline monohydrate 100 mg 100 mg PO DAILY PRN Other 09/25/24 09/25/24 capsule temazepam 30 mg capsule (Restoril) 30 mg PO HS PRN Sleep 09/25/24 09/25/24 Previous Rx's Medication Instructions Recorded aspirin 81 mg tablet,delayed 81 mg PO DAILY #30 tabs 06/15/21 release (Adult Aspirin Regimen) fluticasone propionate 50 1 spray intranasal BID #16 grams 07/09/22 mcg/actuation nasal spray,suspension (Flonase Allergy Relief) lisinopril 20 mg tablet 20 mg PO QAM #90 tabs 09/09/23 amoxicillin 500 mg tablet 2,000 mg (4 x 500 mg) PO 12/28/23 DIRECTED PRN PRIOR TO DENTAL PROCEDURES #4 tabs furosemide 20 mg tablet 20 mg PO QAM #90 tabs 06/11/24 amlodipine 2.5 mg tablet 2.5 mg PO HS #90 tabs 07/18/24 atorvastatin 40 mg tablet 40 mg PO QAM #90 tabs 08/21/24 sodium chloride 1,000 mg soluble 1,000 mg PO BID #180 tabs 09/06/24 tablet hydralazine 10 mg tablet 10 mg PO Q8H PRN hypertension #10 09/19/24 tabs Results & Data (ED) Vital Signs Vital Signs - 24 hr 09/25/24 06:55 09/25/24 07:47 09/25/24 07:47 Temperature 37.4 C Temperature Source Temporal Artery Scan Pulse Rate 87 Pulse Rate [Apical] 105 H Pulse Rhythm Regular Pulse Strength Normal Respiratory Rate 16 18 Respiratory Effort / Characteristics Non-Labored Spontaneous Non-Labored Spontaneous Respiratory Depth Normal Normal Respiratory Pattern Regular Regular Blood Pressure 135/79 Blood Pressure [Right Arm] 140/86 Blood Pressure Mean 97 Blood Pressure Mean [Right Arm] 104 Pulse Oximetry 100 94 94 Oxygen Delivery Method Room Air Room Air Room Air Oxygen Flow Rate Sepsis Recent Fever Within 48 Hours No Sepsis New/Unexplained Change in Mental Status No Sepsis Action Taken by Nursing No Action Required Oxygen Flow Rate - Titration Pulse Oximetry Post Tiitration 09/25/24 08:30 09/25/24 08:55 09/25/24 09:00 Temperature Temperature Source Pulse Rate 103 H Pulse Rate [Apical] 102 H Pulse Rhythm Pulse Strength Respiratory Rate 18 Respiratory Effort / Characteristics Non-Labored Spontaneous Respiratory Depth Normal Respiratory Pattern Regular Blood Pressure Blood Pressure [Right Arm] 92/66 L Blood Pressure Mean Blood Pressure Mean [Right Arm] 74 Pulse Oximetry 67 L 98 Oxygen Delivery Method Room Air Nasal Cannula Nasal Cannula Oxygen Flow Rate 0 3 Sepsis Recent Fever Within 48 Hours Sepsis New/Unexplained Change in Mental Status Sepsis Action Taken by Nursing Oxygen Flow Rate - Titration 4 Pulse Oximetry Post Tiitration 98 09/25/24 10:00 Temperature Temperature Source Pulse Rate Pulse Rate [Apical] 95 H Pulse Rhythm Pulse Strength Respiratory Rate 18 Respiratory Effort / Characteristics Non-Labored Spontaneous Respiratory Depth Normal Respiratory Pattern Regular Blood Pressure Blood Pressure [Right Arm] 113/78 Blood Pressure Mean Blood Pressure Mean [Right Arm] 89 Pulse Oximetry 99 Oxygen Delivery Method Room Air Oxygen Flow Rate Sepsis Recent Fever Within 48 Hours Sepsis New/Unexplained Change in Mental Status Sepsis Action Taken by Nursing Oxygen Flow Rate - Titration Pulse Oximetry Post Tiitration Laboratory Data 09/25/24 07:30 09/25/24 07:30 Lab Results 09/25/24 09/25/24 Range/Units 07:30 08:12 WBC 12.58 H (4.8-10.8) K/ul RBC 3.90 L (4.70-6.10) M/uL Hgb 12.7 L (14.0-18.0) g/dl Hct 37.0 L (42.0-52.0) % MCV 94.9 (80.0-100.0) fL MCH 32.6 (25.0-34.0) pg MCHC 34.3 (32.0-36.0) g/dL RDW Std Deviation 41.3 (36.4-46.3) fL RDW Coeff of [place] 11.9 (11.5-14.5) % Plt Count 204 (130-400) K/uL MPV 9.9 (9.4-12.4) fL Immature Gran % (Auto) 0.6 % Neut % (Auto) 90.5 % Lymph % (Auto) 5.4 % [place] % (Auto) 2.7 % Eos % (Auto) 0.6 % Baso % (Auto) 0.2 % Neut # (Auto) 11.38 H (1.40-6.50) K/uL Lymph # (Auto) 0.68 L (1.20-3.40) K/uL [place] # (Auto) 0.34 (0.11-0.59) K/uL Eos # (Auto) 0.08 (0.00-0.50) K/uL Baso # (Auto) 0.03 (0.00-0.20) K/uL Immature Gran # (Auto) 0.07 (0.01-0.20) K/uL Sodium 134 L (136-145) mmol/L Potassium 4.0 (3.5-5.1) mmol/L Chloride 100 (98-107) mmol/L Carbon Dioxide 30 (21-32) mmol/L Anion Gap 4 (3-11) BUN 29 H (6-23) mg/dl Creatinine 1.05 (0.6-1.4) mg/dl Est Cr Clr Drug Dosing 48.1 ml/min eGFR 71.76 BUN/Creatinine Ratio 27.6 H (10-20) Glucose 111 H (70-99(Fasting)) mg/dl Lactate 1.9 (0.4-2.0) mmol/L Calcium 9.1 (8.6-10.3) mg/dl Magnesium 1.7 (1.7-2.4) mg/dl Total Bilirubin 0.8 (0.2-1.0) mg/dl Direct Bilirubin 0.1 (0-0.2) mg/dl AST 27 (13-39) U/L ALT 21 (7-52) U/L Alkaline Phosphatase 66 (34-104) U/L Troponin I High Sens 6.8 (0-20) pg/ml Total Protein 7.0 (6.0-8.3) gm/dl Albumin 4.1 (3.4-5.0) gm/dl Procalcitonin Cancelled 0.16 Anaplasma Smear See Comment Babesia Smear See Comment Lyme Disease Screen Negative (Negative) Administered Medications Discontinued Medications Sodium Chloride (Nss) 1,000 mls @ 999 mls/hr IV .Q1H1M AJIT Stop: 09/25/24 08:15 Last Infusion: 09/25/24 08:36 Dose: Infused Documented By: Admin: 09/25/24 07:35 Dose: 999 mls/hr Documented By: GREG Sodium Chloride (Nss) 1,000 mls @ 999 mls/hr IV .Q1H1M ONE Stop: 09/25/24 10:13 Last Infusion: 09/25/24 10:20 Dose: Infused Documented By: Admin: 09/25/24 09:19 Dose: 999 mls/hr Documented By: GREG Ceftriaxone Sodium (Rocephin) 2,000 mg in 50 mls @ 100 mls/hr IV NOW STA Stop: 09/25/24 09:42 Last Infusion: 09/25/24 09:49 Dose: Infused Documented By: Admin: 09/25/24 09:19 Dose: 100 mls/hr Documented By: GCC Doxycycline Hyclate 100 mg/ (Dextrose) 100 mls @ 50 mls/hr IV NOW STA Stop: 09/25/24 11:12 Last Infusion: 09/25/24 12:32 Dose: Infused Documented By: [facility] Admin: 09/25/24 10:11 Dose: 50 mls/hr Documented By: GREG Ioversol (Optiray 320 125ml) 112 ml IV ONCE ONE Stop: 09/25/24 08:29 Last Admin: 09/25/24 08:28 Dose: 112 ml Documented By: RASHAAD Ondansetron HCl (Ondansetron Inj 2 Mg/Ml 2 Ml Vial) 4 mg IV NOW STA Stop: 09/25/24 07:45 Last Admin: 09/25/24 07:52 Dose: 4 mg Documented By: GCC Imaging Data Radiologist's Impression: Head CT 09/25/24 07:15 CT head/brain wo con CLINICAL HISTORY: 79 years-old Male with syncope fall. Acute head trauma status post fall TECHNIQUE: Multiple axial CT images of the head were obtained without contrast. A dose lowering technique was utilized adhering to the principles of ALARA. COMPARISON: 07/20/2023 FINDINGS: No acute intracranial hemorrhage, midline shift, intracranial mass, hydrocephalus, territorial ischemia or abnormal extra-axial collection. Involutional changes with patchy white matter hypodensities suggestive of chronic microvascular ischemic disease. Partially empty sella. The calvarium is intact. Prior bilateral lens repair. The paranasal sinuses, mastoid air cells, and middle ear cavities are clear. IMPRESSION: No acute intracranial abnormality or calvarial fracture. ACT 112: Negative or not required by law. The above report was generated using voice recognition software. It may contain grammatical, syntax or spelling errors. Electronically signed by: Gelacio Mobley M.D. 09/25/2024 8:46 AM Chest X-Ray 09/25/24 07:16 EXAM: XR chest 1V portable CLINICAL HISTORY: Sepsis TECHNIQUE: An X-ray image of the chest is obtained in AP projection. COMPARISON: 04/16/2024. FINDINGS: Pulmonary Parenchyma: Peripheral reticular opacities were noted on both lungs, likely fibrotic changes, unchanged Patchy haziness in the right upper and lower zones Elevation of the left hemidiaphragm with dilation of the gastric bubble. unchanged No evidence of pleural effusion. Bilateral apical plural thickening. Heart and Mediastinum: Heart size and shape are normal. No mediastinal widening or masses. No hilar or mediastinal lymphadenopathy. Bony Thorax: Bony thorax appears intact without fractures or deformities. Left shoulder arthroplasty. Osteoartheritic changes of the right shoulder joint. Soft Tissues: Soft tissues overlying the chest wall are unremarkable. IMPRESSION: 1. Interval demonstration of patchy haziness in the right upper and lower zones, could be due to edema or infection. 2. The rest of the findings are unchanged in comparison with 04/16/2024. Electronically signed by Pacheco Parisi 09-25-2024 08:25 AM Chest CTA 09/25/24 08:17 CT angio chest PE protocol CT DOSE: 1127.19 mGy.cm HISTORY: PE. TECHNIQUE: Multiple CTA images of the chest were obtained after the intravenous administration of 90 ml Optiray. Coronal and sagittal MIPS were obtained from the axial data set and were submitted for review. All measurements were obtained according to NASCET criteria. A dose lowering technique was utilized adhering to the principles of ALARA. COMPARISON STUDY: 07/26/2024 FINDINGS: There is stable prominent elevation of the left hemidiaphragm. There is interval reticular and patchy groundglass and small areas of patchy consolidation at the right lower lobe and there is increased patchy opacity at the right lung apex consistent with pneumonia. There is no pleural effusion or pneumothorax. No enlarged adenopathy. No pericardial effusion. No thoracic aortic dissection or aneurysm. No pulmonary embolism seen. Stable scoliosis and degenerative changes at the thoracic spine. Stable height loss at a few thoracic vertebral bodies. IMPRESSION: 1. No pulmonary embolism seen. 2. Acute right-sided pneumonia. Follow-up chest CT is suggested in 3 months to make sure this completely resolves. ACT 112: Negative or not required by law. The above report was generated using voice recognition software. It may contain grammatical, syntax or spelling errors. Electronically signed by: Justin Krishnamurthy M.D. 09/25/2024 8:56 AM Discharge Plan Visit Data Chief Complaint: Illness Stated Complaint: SHAKING, NAUSEA ED Provider: Gokul Higginbotham Discharge Problem: Acute hypoxic respiratory failure, Pneumonia Patient Disposition: Admitted As Inpatient Discharge Instructions Interventions: ED Discharge Assessment Last Done: 09/25/24 12:36 Discharge Problem: Pneumonia Qualifiers: Pneumonia type: due to unspecified organism Laterality: unspecified laterality Lung location: unspecified part of lung Qualified Code(s): J18.9 - Pneumonia, unspecified organism
[2024-09-25] MEDS: SODIUM CHLORIDE 0.9% 1,000 ML IV SCH (07:35)
[2024-09-25] MEDS: ONDANSETRON INJ 2 MG/ML 2 ML VIAL IV STA (07:52)
[2024-09-25 07:54] LABS: Hemoglobin 12.7 g/dl (14.0-18.0); Mean Corpuscular Hemoglobin 32.6 pg (25.0-34.0); Mean Corpuscular Hgb Conc 34.3 g/dL (32.0-36.0); Mean Corpuscular Volume 94.9 fL (80.0-100.0); Mean Platelet Volume 9.9 fL (9.4-12.4); Platelet Count 204 K/uL (130-400); RDW Coefficient of Variation 11.9 % (11.5-14.5); RDW Standard Deviation 41.3 fL (36.4-46.3); White Blood Count 12.58 K/ul (4.8-10.8)
[2024-09-25 08:07] LABS: Albumin Level 4.1 gm/dl (3.4-5.0); BUN Creatinine Ratio 27.6 (10-20); Bilirubin Direct 0.1 mg/dl (0-0.2); Bilirubin,Total 0.8 mg/dl (0.2-1.0); Calcium 9.1 mg/dl (8.6-10.3); Creatinine Clr Calc Pharmacy 48.1 ml/min; Magnesium 1.7 mg/dl (1.7-2.4)
[2024-09-25 08:13] LABS: Troponin I High Sensitivity 6.8 pg/ml (0-20)
[2024-09-25 08:19] LABS: Basophils # (auto) 0.03 K/uL (0.00-0.20); Basophils % (auto) 0.2 %; Eosinophils # (auto) 0.08 K/uL (0.00-0.50); Eosinophils % (auto) 0.6 %; Immature Granulocytes # (auto) 0.07 K/uL (0.01-0.20); Immature Granulocytes % (auto) 0.6 %; Lymphocytes # (auto) 0.68 K/uL (1.20-3.40); Lymphocytes % (auto) 5.4 %; Monocytes # (auto) 0.34 K/uL (0.11-0.59); Monocytes % (auto) 2.7 %; Neutrophils # (auto) 11.38 K/uL (1.40-6.50); Neutrophils % (auto) 90.5 %
--- NOTE | 2024-09-25 08:26 | XRay Report ---
EXAM: XR chest 1V portable CLINICAL HISTORY: Sepsis TECHNIQUE: An X-ray image of the chest is obtained in AP projection. COMPARISON: 04/16/2024. FINDINGS: Pulmonary Parenchyma: Peripheral reticular opacities were noted on both lungs, likely fibrotic changes, unchanged Patchy haziness in the right upper and lower zones Elevation of the left hemidiaphragm with dilation of the gastric bubble. unchanged No evidence of pleural effusion. Bilateral apical plural thickening. Heart and Mediastinum: Heart size and shape are normal. No mediastinal widening or masses. No hilar or mediastinal lymphadenopathy. Bony Thorax: Bony thorax appears intact without fractures or deformities. Left shoulder arthroplasty. Osteoartheritic changes of the right shoulder joint. Soft Tissues: Soft tissues overlying the chest wall are unremarkable. IMPRESSION: 1. Interval demonstration of patchy haziness in the right upper and lower zones, could be due to edema or infection. 2. The rest of the findings are unchanged in comparison with 04/16/2024. Electronically signed by Pacheco Parisi 09-25-2024 08:25 AM
[2024-09-25] MEDS: OPTIRAY 320 125ml IV ONE (08:28)
--- NOTE | 2024-09-25 08:48 | CT Scan Report ---
CT head/brain wo con CLINICAL HISTORY: 79 years-old Male with syncope fall. Acute head trauma status post fall TECHNIQUE: Multiple axial CT images of the head were obtained without contrast. A dose lowering tech nique was utilized adhering to the principles of ALARA. COMPARISON: 07/20/2023 FINDINGS: No acute intracranial hemorrhage, midline shift, intracranial mass, hydrocephalus, territorial ischem ia or abnormal extra-axial collection. Involutional changes with patchy white matter hypodensities street ggestive of chronic microvascular ischemic disease. Partially empty sella. The calvarium is intact. Prior bilateral lens repair. The paranasal sinuses, mastoid air cells, and m iddle ear cavities are clear. IMPRESSION: No acute intracranial abnormality or calvarial fracture. ACT 112: Negative or not required by law. The above report was generated using voice recognition software. It may contain grammatical, syntax o r spelling errors. Electronically signed by: Gelacio Mobley M.D. 09/25/2024 8:46 AM
--- NOTE | 2024-09-25 08:59 | CT Scan Report ---
CT angio chest PE protocol CT DOSE: 1127.19 mGy.cm HISTORY: PE. TECHNIQUE: Multiple CTA images of the chest were obtained after the intravenous administration of 90 ml Optiray. Coronal and sagittal MIPS were obtained from the axial data set and were submitted for r eview. All measurements were obtained according to NASCET criteria. A dose lowering technique was ut ilized adhering to the principles of ALARA. COMPARISON STUDY: 07/26/2024 FINDINGS: There is stable prominent elevation of the left hemidiaphragm. There is interval reticular and patchy groundglass and small areas of patchy consolidation at the right lower lobe and there is i ncreased patchy opacity at the right lung apex consistent with pneumonia. There is no pleural effusio n or pneumothorax. No enlarged adenopathy. No pericardial effusion. No thoracic aortic dissection or aneurysm. No pulmonary embolism seen. Stable scoliosis and degenerative changes at the thoracic spine . Stable height loss at a few thoracic vertebral bodies. IMPRESSION: 1. No pulmonary embolism seen. 2. Acute right-sided pneumonia. Follow-up chest CT is suggested in 3 months to make sure this complet su resolves. ACT 112: Negative or not required by law. The above report was generated using voice recognition software. It may contain grammatical, syntax o r spelling errors. Electronically signed by: Justin Krishnamurthy M.D. 09/25/2024 8:56 AM
[2024-09-25] MEDS: SODIUM CHLORIDE 0.9% 1,000 ML IV ONE (09:19)
[2024-09-25] MEDS: cefTRIAXone SODIUM 2,000 MG/50 ML BAG IV STA (09:19)
[2024-09-25 10:03] LABS: Procalcitonin 0.16 ng/ml (0-0.5)
[2024-09-25] MEDS: DOXYCYCLINE HYCLATE 100 MG in DEXTROSE 5% MINI-B 100 ML IV STA (10:11)
[2024-09-25 10:29] LABS: Lyme Screen Rflx Confirmation Negative (Negative)
[2024-09-25] MEDS ORDERED: ALBUT/IPRATROP 3MG/0.5MG NEB 3 ML VIAL NEB PRN (10:56)
[2024-09-25] MEDS ORDERED: ACETAMINOPHEN 325 MG TAB PO PRN (10:57)
[2024-09-25] MEDS ORDERED: ONDANSETRON INJ 2 MG/ML 2 ML VIAL IV PRN (10:57)
--- NOTE | 2024-09-25 11:31 | History & Physical Report ---
Date of Service September 25, 2024 Assessment & Plan (1) PNA (pneumonia): Plan: CT showing acute right-sided PNA Rocephin/doxycycline duonebs prn supplimental 02 (2) Hypertension: Plan: Norvasc lisinopril lasix (3) H/O: CVA (cerebrovascular accident): Plan: asa atorvastatin Plan Heparin SQ for DVT px History of Present Illness Chief Complaint: Chills and myalgias Primary Care Provider: Alesha Gonsalez MD Pt is an 79 y/o male with pmh of CVA, HTN, anemia who presents with episode fo chills and myalgias that woke him up at 3am in the morning. During the day he felt weak and nauseated. He presented to the ER and was found to be hypoxic on room air. He had a CTA chest which was negative for PE, but did show acute right sided PNA. Pt was started on rocephin/doxycycline by the ER and will be admitted for further treatment of CAP with hypoxia. Allergies Allergy/AdvReac Type Severity Reaction Status Date / Time zolpidem AdvReac Unknown doesn't Verified 09/19/24 11:00 bring me down for sleeping, wires me up Home Medications Medication Instructions Recorded Confirmed Type calcium 300 mg-D3 20 mcg-magnesium 1 tab PO QAM 08/04/18 09/25/24 History 25 mg-coppr 0.5 [id number]-lyxe tablet (Caltrate-D3 Plus Minerals) multivitamin 1 tab PO QAM 08/04/18 09/25/24 History cyanocobalamin (vitamin B-12) 1,000 mcg PO Q2D 07/30/19 09/25/24 History 1,000 mcg tablet cetirizine 10 mg tablet (Allergy 10 mg PO QAM Allergy Symptoms 05/22/21 09/25/24 History Relief (cetirizine)) aspirin 81 mg tablet,delayed 81 mg PO DAILY #30 tabs 06/15/21 09/25/24 Rx release (Adult Aspirin Regimen) fluticasone propionate 50 1 spray intranasal BID #16 grams 07/09/22 09/25/24 Rx mcg/actuation nasal spray,suspension (Flonase Allergy Relief) magnesium oxide 400 mg PO Q OTHER DAY 06/08/23 09/25/24 History Lactobacil.acidophilus-Bifido.animalis 1 cap PO DAILY 07/20/23 09/25/24 History 5 billion cell sprinkle capsule (Probiotic) lisinopril 20 mg tablet 20 mg PO QAM #90 tabs 09/09/23 09/25/24 Rx amoxicillin 500 mg tablet 2,000 mg (4 x 500 mg) PO 12/28/23 09/25/24 Rx DIRECTED PRN PRIOR TO DENTAL PROCEDURES #4 tabs acetaminophen 500 mg tablet 1,000 mg PO TID PRN Pain 04/19/24 09/25/24 History (Tylenol Extra Strength) furosemide 20 mg tablet 20 mg PO QAM #90 tabs 06/11/24 09/25/24 Rx amlodipine 2.5 mg tablet 2.5 mg PO HS #90 tabs 07/18/24 09/25/24 Rx atorvastatin 40 mg tablet 40 mg PO QAM #90 tabs 08/21/24 09/25/24 Rx sodium chloride 1,000 mg soluble 1,000 mg PO BID #180 tabs 09/06/24 09/25/24 Rx tablet hydralazine 10 mg tablet 10 mg PO Q8H PRN hypertension #10 09/19/24 09/25/24 Rx tabs doxycycline monohydrate 100 mg 100 mg PO DAILY PRN Other 09/25/24 09/25/24 His tory capsule temazepam 30 mg capsule (Restoril) 30 mg PO HS PRN Sleep 09/25/24 09/25/24 History Past Med/Surg History Problem List (Updated 09/25/24 @ 11:35 by Zafar Archer MD) PNA (pneumonia) Dysphagia Dyspnea on exertion Lung nodule seen on imaging study Chronic hyponatremia (Acute) URI (upper respiratory infection) Leg weakness, bilateral Hypertrophy of both inferior nasal turbinates Nasal septal deviation Chronic maxillary sinusitis H/O: CVA (cerebrovascular accident) Health care maintenance Nail deformity Osteoarthritis of left knee Hyperglycemia Recurrent sinus infections FH: abdominal aortic aneurysm H/O prostate cancer Scoliosis (Chronic) Osteopenia (Chronic) Osteoarthritis of first carpometacarpal joint, unspecified (Chronic) Multiple pulmonary nodules (Chronic) Knee pain, bilateral (Chronic) Insomnia (Chronic) Inguinal hernia (Chronic) Hypertension Disc degeneration, lumbar (Chronic) Anemia, mild (Chronic) Medical History (Updated 09/25/24 @ 11:35 by Zafar Archer MD) Accelerated hypertension History of prostate cancer (1999) sx intervention History of TIA (transient ischemic attack) (2022) hx mini stroke Osteopenia Scoliosis Osteoarthritis HTN (hypertension) History of COVID-19 (11/2021) following covid experiences sob on exertion...improved some. Lung nodules monitors, most recent ct scan today 04/19/24. Unknown results as of current. [facility]. URI (upper respiratory infection) no specific dx , dr ford on 04/16/24 for productive cough, sinus congestion, nausea. Feeling better today. Current abx for. History of stroke approx 2020. residuals: left eye doesn't want to work with right eye, trouble with reading and walking (cane prn). History of skin cancer Sleep disturbance Dental infection per pt hx and was removed . At current: 2 teeth with small infections - last memo 04/2024. Upcoming removal planned for new 2024/not yet scheduled. Surgical History History of colonoscopy History of left cataract surgery History of right cataract surgery History of left shoulder replacement S/P genital surgery (~2003) Penile prosthetic device S/P hernia repair H/O radical retropubic prostatectomy Family History Father , age 89 Alzheimer disease Coronary heart disease [place]' lung Paget's disease Patient Mother , age 85 Coronary heart disease Stroke multiple first on at age 78 Hypertension Denies family history of Prostate cancer Social History Smoking Status: Never smoker Second Hand Exposure: No; Do You Dip or Chew Tobacco: No; Hx Alcohol Use: No Hx Substance Use: No Preferred Language: Lithuanian Communication Ability: Effective Visual Impairment: No Limitations Hearing Ability: Normal Orthopedic Cast Specialist Required: No Beliefs That Will Affect Care: None marital status: Current Living Situation: Spouse current occupational status: retired current occupation: landscaping Feels Safe at Home: Yes Physical Activity Frequency: Daily Physical Activity Frequency Comment: hike [place] 5-6 times a week Seatbelt Use: always Assistive Devices: Cane, Glasses and Other Review of Systems Review of Systems: chills, myalgias CONST: Negative for fever, body aches and chills. HENT: Negative for neck pain/stiffness, headache, congestion, sore throat, swelling. EYES: Negative for discharge/pain or vision changes. RESP: Negative for cough/hemoptysis and shortness of breath. CV: Negative chest pain, difficulty breathing, palpitations. ABD: Negative pain, nausea, vomiting. : Negative increase frequency, dysuria, blood in urine or stool. MUSC: Negative for muscle aches, edema. SKIN: Negative rash, lesions/sores. NEURO: Negative headache, dizziness, weakness. Physical Exam Physical Exam: GENERAL APPEARANCE NAD, activity normal for age, well developed/ well nourished, no cyanosis, pallor, or diaphoresis. EYES lids/conjunctiva normal. EARS/NOSE/THROAT Mucous membranes moist, nares normal, lips/teeth normal uvula midline without oral pharyngeal erythema, exudate or swelling TMs normal bilaterally. No lymphangitis/lymphedema. HEAD/NECK normocephalic atraumatic, no facial trauma, neck is supple. RESPIRATORY respiratory effort normal, speaks in full sentences, no tripod position, no accessory muscle use. Lungs clear to auscultation without rhonchi, wheezes, rales CARDIAC Regular rate and rhythm, no edema. ABDOMINAL Soft, ND/NT. No evidence of fluid wave. No pulsatile masses on exam, rebound tenderness, Cardona sign or pain over Mcburney's point. MUSCLES/EXTREMITIES No abnormal range of motion, no swelling. SKIN Warm, pink and dry. No rashes, dermatoses, petechiae or lesions. NEUROLOGICAL Speech is clear and appropriate. Normal level of consciousness. Gait and coordination are normal. 5/5 strength in all extremities. PSYCH Normal mood and affect. Judgement/competence is appropriate Results & Data Results & Data Vital Signs (Past 12 Hours) Vital Signs Temp Pulse Pulse Resp BP BP Pulse Ox 09/25/24 10:00 95 H 18 113/78 99 09/25/24 09:00 102 H 18 92/66 L 98 09/25/24 08:55 103 H 09/25/24 08:30 67 L 09/25/24 07:47 94 09/25/24 07:47 105 H 18 140/86 94 09/25/24 06:55 37.4 C 87 16 135/79 100 O2 Del Method O2 Flow Rate 09/25/24 10:00 Room Air 09/25/24 09:00 Nasal Cannula 3 09/25/24 08:55 09/25/24 08:30 Room Air, Nasal Cannula 0 09/25/24 07:47 Room Air 09/25/24 07:47 Room Air 09/25/24 06:55 Room Air PG Care Time/CCT Total # of Minutes Spent Total Time Spent with Patient: Total time spent is greater than 50% in coordination of care (as documented) at patient's floor/unit and/or counseling patient: Coding Level of Care Code 72125 INT INP/OBS CARE 255MIN Diagnoses PNA (pneumonia) J18.9 Hypertension I10 H/O: CVA (cerebrovascular accident) Z86.73
--- NOTE | 2024-09-25 11:46 | Electrocardiogram Report ---
Test Reason : Blood Pressure : */* mmHG Vent. Rate : 104 BPM Atrial Rate : 104 BPM P-R Int : 216 ms QRS Dur : 92 ms QT Int : 336 ms P-R-T Axes : 63 30 69 degrees QTcB Int : 441 ms Sinus tachycardia with 1st degree A-V block with Premature atrial complexes Otherwise normal ECG When compared with ECG of 20-Jul-2023 21:58, Premature atrial complexes are now Present Nonspecific T wave abnormality no longer evident in Anterior leads Confirmed by Dominic Almanzar ([id number]) on 09/25/2024 11:46:30 AM Referred By: REFERRED SELF Confirmed By: Dominic Almanzar
[2024-09-25 12:59] LABS: Appearance Urine Clear (Clear); Bilirubin Urine Negative (Negative); Blood Urine Negative (Negative); Color Urine Yellow; Glucose Urine UA Negative (Negative); Ketones Urine Trace (Negative); Leukocyte Esterase Urine Negative (Negative); Nitrite Urine Negative (Negative); Protein Urine Negative (Negative); Urobilinogen Urine Negative (Negative)
[2024-09-25] MEDS: ASPIRIN 81 MG ECTAB PO SCH (16:31)
[2024-09-25] MEDS: ATORVASTATIN 40 MG TAB PO ONE (16:31)
[2024-09-25] MEDS: lisinopril 20 MG TAB PO ONE (16:31)
[2024-09-25] MEDS: CYANOCOBALAMIN (B-12) 500 MCG TABLET PO SCH (16:32)
[2024-09-25] MEDS: MAGNESIUM OXIDE 400 MG TAB PO SCH (16:32)
[2024-09-25] MEDS: hydrALAZINE 10 MG TAB PO SCH (16:32)
[2024-09-25] MEDS: CALCIUM 600MG + VIT D 400 IU TAB PO SCH (16:32)
[2024-09-25] MEDS: HEPARIN SOD 5,000 UNIT/0.5 ML VIAL SQ SCH (16:33)
[2024-09-25] MEDS: ACETAMINOPHEN 500 MG TAB PO STA (22:42)
[2024-09-25] MEDS: LACTATED RINGER'S 500 ML IV SCH (22:42)
[2024-09-25] MEDS: amLODIPine BESYLATE 5 MG TAB PO SCH (22:54)
[2024-09-25] MEDS: DOXYCYCLINE HYCLATE 100 MG in DEXTROSE 5% MINI-B 100 ML IV SCH (23:00)
[2024-09-25] MEDS: SODIUM CHLORIDE 1 GM TABLET PO SCH (23:17)
[2024-09-26] MEDS: TEMAZEPAM 15 MG CAPSULE PO PRN (00:37)
[2024-09-26] MEDS: LACTATED RINGER'S 1,000 ML IV ONE (01:54)
--- NOTE | 2024-09-26 02:12 | Communication Note ---
Date of Service: September 26, 2024 Notified by nursing for decreased blood pressures with systolics in the 70's. Repeat 89/54. Patient assessed in room B2. Resting comfortably, easily arousable. Asymptomatic. Answers questions appropriately -Order placed for NSS bolus x 1 L NSS administered with transient improvement in blood pressure. Still with episodes of low blood pressures, 87/56 -Additional liter of LR given -Blood pressure medications held. Patient did receive Lisinopril at 16:31 but all other anti-hypertensives were held -Random cortisol borderline low at 16.12. Patient with no history of adrenal insufficiency and is not on chronic steroids -Will give Dexamethasone 6mg IV x 1 dose now -Ordered Cosyntropin stimulation test for tomorrow morning starting with baselin e cortisol level check at 08:00, Cosyntropin 250mcg to be followed by consecutive draws at 30 and 60 minutes Morning labs with worsening WBC count=15. No anion gap. Normal lactate. Normal renal function. Ca=7.5 -Will give calcium gluconate x 2gm Blood pressure improved - 126/71 at 05:21
[2024-09-26] MEDS: DEXAMETHASONE SOD INJ 4 MG/ML VIAL IV STA (02:33)
[2024-09-26 03:39] LABS: Basophils # (auto) 0.03 K/uL (0.00-0.20); Basophils % (auto) 0.2 %; Eosinophils # (auto) 0.01 K/uL (0.00-0.50); Eosinophils % (auto) 0.1 %; Hemoglobin 10.3 g/dl (14.0-18.0); Immature Granulocytes # (auto) 0.17 K/uL (0.01-0.20); Immature Granulocytes % (auto) 1.1 %; Lymphocytes # (auto) 1.32 K/uL (1.20-3.40); Lymphocytes % (auto) 8.6 %; Mean Corpuscular Hemoglobin 32.4 pg (25.0-34.0); Mean Corpuscular Hgb Conc 33.2 g/dL (32.0-36.0); Mean Corpuscular Volume 97.5 fL (80.0-100.0); Mean Platelet Volume 9.5 fL (9.4-12.4); Monocytes # (auto) 0.93 K/uL (0.11-0.59); Monocytes % (auto) 6.1 %; Neutrophils # (auto) 12.89 K/uL (1.40-6.50); Neutrophils % (auto) 83.9 %; Platelet Count 157 K/uL (130-400); RDW Coefficient of Variation 12.4 % (11.5-14.5); RDW Standard Deviation 44.7 fL (36.4-46.3); Red Blood Count 3.18 M/uL (4.70-6.10); White Blood Count 15.35 K/ul (4.8-10.8)
[2024-09-26 03:52] LABS: Albumin Level 3.1 gm/dl (3.4-5.0); Bilirubin Direct 0.1 mg/dl (0-0.2); Bilirubin,Total 0.4 mg/dl (0.2-1.0); Calcium 7.5 mg/dl (8.6-10.3); Potassium 4.2 mmol/L (3.5-5.1)
[2024-09-26 04:02] LABS: BUN Creatinine Ratio 25.5 (10-20); Creatinine Clr Calc Pharmacy 45.9 ml/min; Total Protein 5.3 gm/dl (6.0-8.3)
[2024-09-26] MEDS: CALCIUM GLUCONATE 1,000 MG/60 ML BAG IV SCH (04:36)
[2024-09-26] MEDS: MULTIVITAMIN TAB PO SCH (08:45)
[2024-09-26] MEDS: SACCHAROMYCES BOULARDII 250 MG CAP PO SCH (08:46)
[2024-09-26] MEDS: CETIRIZINE HCL 10 MG TABLET PO SCH (08:48)
[2024-09-26] MEDS: ACETAMINOPHEN 500 MG TAB PO PRN (08:53)
[2024-09-26] MEDS: COSYNTROPIN 250 MCG in SYRINGE 4 ML IV ONE (08:54)
[2024-09-26] MEDS: cefTRIAXone SODIUM 1,000 MG/50 ML BAG IV SCH (08:57)
[2024-09-26] MEDS ORDERED: FUROSEMIDE 20 MG TAB PO SCH (09:00)
[2024-09-26] MEDS ORDERED: lisinopril 20 MG TAB PO SCH (09:00)
[2024-09-26] MEDS: ATORVASTATIN 40 MG TAB PO SCH (10:16)
--- NOTE | 2024-09-26 12:41 | Hospitalist Progress Note ---
Date of Service September 26, 2024 Assessment & Plan (1) PNA (pneumonia): Plan: CT showing acute right-sided PNA Rocephin/doxycycline day #2 duonebs prn supplemental 02 (2) Hypertension: Plan: Norvasc lisinopril lasix (3) H/O: CVA (cerebrovascular accident): Plan: asa atorvastatin Plan Heparin SQ for DVT px Admission and Anticipated Discharge Date Admission Date: September 25, 2024 Subjective Pt had episode of hypotension last night. Was given steroids and IV bolus. Pressure has improved. Pt denies any chest pain or palpitations. Review of Systems Review of Systems: chills, myalgias CONST: Negative for fever, body aches and chills. HENT: Negative for neck pain/stiffness, headache, congestion, sore throat, swelling. EYES: Negative for discharge/pain or vision changes. RESP: Negative for cough/hemoptysis and shortness of breath. CV: Negative chest pain, difficulty breathing, palpitations. ABD: Negative pain, nausea, vomiting. : Negative increase frequency, dysuria, blood in urine or stool. MUSC: Negative for muscle aches, edema. SKIN: Negative rash, lesions/sores. NEURO: Negative headache, dizziness, weakness. Physical Exam Physical Exam: GENERAL APPEARANCE NAD, activity normal for age, well developed/ well nourished, no cyanosis, pallor, or diaphoresis. EYES lids/conjunctiva normal. EARS/NOSE/THROAT Mucous membranes moist, nares normal, lips/teeth normal uvula midline without oral pharyngeal erythema, exudate or swelling TMs normal bilaterally. No lymphangitis/lymphedema. HEAD/NECK normocephalic atraumatic, no facial trauma, neck is supple. RESPIRATORY respiratory effort normal, speaks in full sentences, no tripod position, no accessory muscle use. Lungs clear to auscultation without rhonchi, wheezes, rales CARDIAC Regular rate and rhythm, no edema. ABDOMINAL Soft, ND/NT. No evidence of fluid wave. No pulsatile masses on exam, rebound tenderness, Cardona sign or pain over Mcburney's point. MUSCLES/EXTREMITIES No abnormal range of motion, no swelling. SKIN Warm, pink and dry. No rashes, dermatoses, petechiae or lesions. NEUROLOGICAL Speech is clear and appropriate. Normal level of consciousness. Gait and coordination are normal. 5/5 strength in all extremities. PSYCH Normal mood and affect. Judgement/competence is appropriate Results & Data Results & Data Vital Signs (Past 12 Hours) Vital Signs Temp Pulse Pulse Resp BP Pulse Ox Pulse Ox 09/26/24 12:06 82 09/26/24 11:08 09/26/24 11:08 98 09/26/24 11:00 37.1 C 65 18 123/72 98 09/26/24 11:00 66 09/26/24 09:00 69 18 114/75 96 09/26/24 07:00 71 20 104/67 94 09/26/24 06:54 68 09/26/24 05:21 65 17 126/71 95 09/26/24 04:50 69 17 91/50 L 97 09/26/24 03:56 70 17 84/53 L 96 09/26/24 03:21 68 18 86/59 L 97 09/26/24 02:59 75 14 81/56 L 95 O2 Del Method O2 Del Method O2 Flow Rate 09/26/24 12:06 09/26/24 11:08 Nasal Cannula 1 09/26/24 11:08 Nasal Cannula 09/26/24 11:00 Nasal Cannula 1 09/26/24 11:00 09/26/24 09:00 Nasal Cannula 2 09/26/24 07:00 Nasal Cannula 2 09/26/24 06:54 09/26/24 05:21 Nasal Cannula 2 09/26/24 04:50 Nasal Cannula 2 09/26/24 03:56 Nasal Cannula 2 09/26/24 03:21 Room Air 09/26/24 02:59 Nasal Cannula 2 PG Care Time/CCT Total # of Minutes Spent Total Time Spent with Patient: Total time spent is greater than 50% in coordination of care (as documented) at patient's floor/unit and/or counseling patient: Coding Level of Care Code 58987 SUB INP/OBS CARE 2/35MIN Diagnoses PNA (pneumonia) J18.9 Hypertension I10 H/O: CVA (cerebrovascular accident) Z86.73
--- NOTE | 2024-09-26 21:03 | XCELERA ---
[id number]
[2024-09-27] MEDS: amLODIPine BESYLATE 5 MG TAB PO ONE ×2 (00:07→15:36)
--- NOTE | 2024-09-27 09:18 | Hospitalist Progress Note ---
Date of Service September 27, 2024 Assessment & Plan (1) PNA (pneumonia): Plan: CT showing acute right-sided PNA Rocephin/doxycycline day #3 duonebs prn supplemental 02 (2) Hypertension: Plan: Norvasc lisinopril lasix (3) H/O: CVA (cerebrovascular accident): Plan: asa atorvastatin Plan Heparin SQ for DVT px Admission and Anticipated Discharge Date Admission Date: September 25, 2024 Subjective No events overnight. Pt states his bp was elevated and would like to restart his lisinopril Review of Systems Review of Systems: chills, myalgias CONST: Negative for fever, body aches and chills. HENT: Negative for neck pain/stiffness, headache, congestion, sore throat, swelling. EYES: Negative for discharge/pain or vision changes. RESP: Negative for cough/hemoptysis and shortness of breath. CV: Negative chest pain, difficulty breathing, palpitations. ABD: Negative pain, nausea, vomiting. : Negative increase frequency, dysuria, blood in urine or stool. MUSC: Negative for muscle aches, edema. SKIN: Negative rash, lesions/sores. NEURO: Negative headache, dizziness, weakness. Physical Exam Physical Exam: GENERAL APPEARANCE NAD, activity normal for age, well developed/ well nourished, no cyanosis, pallor, or diaphoresis. EYES lids/conjunctiva normal. EARS/NOSE/THROAT Mucous membranes moist, nares normal, lips/teeth normal uvula midline without oral pharyngeal erythema, exudate or swelling TMs normal bilaterally. No lymphangitis/lymphedema. HEAD/NECK normocephalic atraumatic, no facial trauma, neck is supple. RESPIRATORY respiratory effort normal, speaks in full sentences, no tripod position, no accessory muscle use. Lungs clear to auscultation without rhonchi, wheezes, rales CARDIAC Regular rate and rhythm, no edema. ABDOMINAL Soft, ND/NT. No evidence of fluid wave. No pulsatile masses on exam, rebound tenderness, Cardona sign or pain over Mcburney's point. MUSCLES/EXTREMITIES No abnormal range of motion, no swelling. SKIN Warm, pink and dry. No rashes, dermatoses, petechiae or lesions. NEUROLOGICAL Speech is clear and appropriate. Normal level of consciousness. Gait and coordination are normal. 5/5 strength in all extremities. PSYCH Normal mood and affect. Judgement/competence is appropriate Results & Data Results & Data Vital Signs (Past 12 Hours) Vital Signs Temp Pulse Pulse Resp BP BP Pulse Ox 09/27/24 09:05 72 09/27/24 07:48 36.3 C L 78 18 145/85 H 99 09/27/24 07:41 09/27/24 03:52 36.5 C 88 16 160/98 H 152/102 H 92 09/26/24 22:58 166/102 H 09/26/24 22:29 36.6 C 101 H 18 179/100 H 92 O2 Del Method 09/27/24 09:05 09/27/24 07:48 Room Air 09/27/24 07:41 Room Air 09/27/24 03:52 Room Air 09/26/24 22:58 09/26/24 22:29 Room Air PG Care Time/CCT Total # of Minutes Spent Total Time Spent with Patient: Total time spent is greater than 50% in coordination of care (as documented) at patient's floor/unit and/or counseling patient: Coding Level of Care Code 86402 SUB INP/OBS CARE 2/35MIN Diagnoses PNA (pneumonia) J18.9 Hypertension I10 H/O: CVA (cerebrovascular accident) Z86.73
[2024-09-27] MEDS: lisinopril 10 MG TAB PO SCH (09:42)
[2024-09-27] MEDS: FUROSEMIDE 20 MG TAB PO SCH (09:42)
[2024-09-27] MEDS: amLODIPine BESYLATE 5 MG TAB PO SCH (21:15)
[2024-09-27] MEDS: DOXYCYCLINE HYCLATE 100 MG CAP PO SCH (21:16)
[2024-09-28 08:11] VITALS: RESP 16; TEMP 98.4; O2SAT 91
[2024-09-28 08:55] LABS: Hematocrit (blood only) 35.8 % (42.0-52.0); Mean Corpuscular Hgb Conc 33.5 g/dL (32.0-36.0); Mean Corpuscular Volume 95.5 fL (80.0-100.0); Mean Platelet Volume 10.5 fL (9.4-12.4); Platelet Count 192 K/uL (130-400); RDW Coefficient of Variation 12.6 % (11.5-14.5); RDW Standard Deviation 43.8 fL (36.4-46.3); Red Blood Count 3.75 M/uL (4.70-6.10); White Blood Count 11.62 K/ul (4.8-10.8)
--- NOTE | 2024-09-28 09:01 | Discharge Summary ---
Discharge Summary Date of Service September 28, 2024 Principal Dx & Hospital Course #1 = Principal Diagnosis (1) PNA (pneumonia): CT showing acute right-sided PNA Rocephin/doxycycline day #3 duonebs prn supplemental 02 (2) Hypertension: Norvasc lisinopril lasix (3) H/O: CVA (cerebrovascular accident): asa atorvastatin Plan Heparin SQ for DVT px Admission HPI Per Admitting Provider Pt is an 79 y/o male with pmh of CVA, HTN, anemia who presents with episode fo chills and myalgias that woke him up at 3am in the morning. During the day he felt weak and nauseated. He presented to the ER and was found to be hypoxic on room air. He had a CTA chest which was negative for PE, but did show acute right sided PNA. Pt was started on rocephin/doxycycline by the ER and will be admitted for further treatment of CAP with hypoxia. Discharge Exam GENERAL APPEARANCE NAD, activity normal for age, well developed/ well nourished, no cyanosis, pallor, or diaphoresis. EYES lids/conjunctiva normal. EARS/NOSE/THROAT Mucous membranes moist, nares normal, lips/teeth normal uvula midline without oral pharyngeal erythema, exudate or swelling TMs normal bilaterally. No lymphangitis/lymphedema. HEAD/NECK normocephalic atraumatic, no facial trauma, neck is supple. RESPIRATORY respiratory effort normal, speaks in full sentences, no tripod position, no accessory muscle use. Lungs clear to auscultation without rhonchi, wheezes, rales CARDIAC Regular rate and rhythm, no edema. ABDOMINAL Soft, ND/NT. No evidence of fluid wave. No pulsatile masses on exam, rebound tenderness, Cardona sign or pain over Mcburney's point. MUSCLES/EXTREMITIES No abnormal range of motion, no swelling. SKIN Warm, pink and dry. No rashes, dermatoses, petechiae or lesions. NEUROLOGICAL Speech is clear and appropriate. Normal level of consciousness. Gait and coordination are normal. 5/5 strength in all extremities. PSYCH Normal mood and affect. Judgement/competence is appropriate Discharge Plan Discharge Items Patient Disposition: Home - Self-Care Reason For Visit: PNA Discharge Diagnosis: PNA Activity: Resume your previous activity Non-emergency contact: Primary Care Provider Call non-emergency contact if: you have any medication questions Follow-up/Referrals: Alesha Gonsalez MD [Primary Care Provider] - Diet: Regular Addtl Attending Provider Instructions: Follow up with PMD in 1 week Pending Studies at Discharge: No Stand-Alone Forms: My [facility], Smoking Cessation Medications and DC Order Prescriptions: New doxycycline hyclate 100 mg Capsule 100 mg PO BID Qty: 6 0RF cefdinir 300 mg capsule 300 mg PO BID 3 Days Qty: 6 0RF Continued cyanocobalamin (vitamin B-12) 1,000 mcg tablet 1,000 mcg PO Q2D aspirin [Adult Aspirin Regimen] 81 mg tablet,delayed release (DR/EC) 81 mg PO DAILY Qty: 30 2RF furosemide 20 mg tablet 20 mg PO QAM Qty: 90 3RF amlodipine 2.5 mg tablet 2.5 mg PO HS Qty: 90 3RF Rx Instructions: PER PT "ABLE TO TAKE EXTRA DOSE IF NEEDED, TOOK ONE TAB THIS AFTERNOON". atorvastatin 40 mg tablet 40 mg PO QAM Qty: 90 3RF sodium chloride 1,000 mg tablet,soluble 1,000 mg PO BID Qty: 180 3RF magnesium oxide 400 mg magnesium tablet 400 mg PO Q OTHER DAY lisinopril 20 mg tablet 20 mg PO QAM Qty: 90 3RF fluticasone propionate [Flonase Allergy Relief] 50 mcg/actuation spray,suspension 1 spray intranasal BID Qty: 16 2RF Rx Instructions: administer into each nostril hydralazine 10 mg tablet 10 mg PO Q8H PRN (Reason: hypertension) Qty: 10 2RF Rx Instructions: PRN for accelerated hypertension: SBP >160 mmHg multivitamin Tablet 1 tab PO QAM Caltrate-D3 Plus Minerals 300 mg-800 unit -25 mg-0.5 mg Tablet 1 tab PO QAM cetirizine [Allergy Relief (cetirizine)] 10 mg Tablet 10 mg PO QAM Probiotic 5 billion cell Capsule, Sprinkle 1 cap PO DAILY temazepam [Restoril] 30 mg capsule 30 mg PO HS PRN (Reason: Sleep) doxycycline monohydrate 100 mg capsule 100 mg PO DAILY PRN (Reason: Other) Rx Instructions: take 2 capsules by mouth once for one dose acetaminophen [Tylenol Extra Strength] 500 mg tablet 1,000 mg PO TID PRN (Reason: Pain) Discontinued amoxicillin 500 mg tablet 2,000 mg PO DIRECTED PRN (Reason: PRIOR TO DENTAL PROCEDURES) Qty: 4 4RF Rx Instructions: 30- 60 mins prior dental procedure Discharge Orders: Discharge Order (Routine); Ordered 09/28/24 Ordered By: Zafar Archer Admission Data Admit Date/Time: 09/25/24 10:57 Attending Provider: Zafar Archer Admit Provider: Zafar Archer Primary Care Provider: Alesha Gonsalez V. Other Providers: Zafar Archer Hospital Stay Data Consultations 09/25/24 10:07 ED Decision to Admit Stat Diagnostic Imagining Performed 09/25/24 07:15 CT head/brain wo con Stat 09/25/24 08:17 CT angio chest PE protocol Stat Pending Results Patient Have Any Pending Studies at Discharge: No Discharge Instructions Given to Patient (Per Discharging Provider) Follow up with PMD in 1 week Total Time Total Time Spent Total Time Spent (In Minutes): 50 Coding Level of Care Code 98280 INP/OBS DISCH >30 MIN Diagnoses PNA (pneumonia) J18.9 Hypertension I10 H/O: CVA (cerebrovascular accident) Z86.73
[2024-09-28 09:17] VITALS: BP 149/84; PULSE 65
[2024-09-28 09:21] LABS: BUN Creatinine Ratio 19.7 (10-20); Calcium 8.4 mg/dl (8.6-10.3); Creatinine Clr Calc Pharmacy 76.5 ml/min; Potassium 3.7 mmol/L (3.5-5.1)
[2024-09-28 14:53] LABS: Babesia microti DNA Not Detected (Not Detected)
== END 2024-09-28 09:34 | disposition home or self-care (01) | DRG 195 ==
LOC: ED 06:52 → EDINP 10:57 → 2N 09-26 12:05
DX: E78.5 Hyperlipidemia, unspecified; J18.9 Pneumonia, unspecified organism; I10 Essential (primary) hypertension; Z79.82 Long term (current) use of aspirin; Z86.73 Personal history of transient ischemic attack (TIA), and cerebral infarction without residual deficits; Z85.46 Personal history of malignant neoplasm of prostate; M79.10 Myalgia, unspecified site; Z79.02 Long term (current) use of antithrombotics/antiplatelets; Z88.8 Allergy status to other drugs, medicaments and biological substances; Z79.899 Other long term (current) drug therapy